=== PATIENT | male | born 1945 | race Caucasian/White ===

== ENCOUNTER → 2023-09-09 | Outpatient (CLI) | payer MEDICARE ==
[~2023-09-09] MED LIST: AMOX500T2 PO; DUTA0.5C37 PO; HYDR-4377 PO; L.AC1CAP6 PO; MULT-1367 PO; NEBI5TAB11 PO; OXYB5TAB20 PO; TAMS-1 PO; VITAMIN D3 PO; ZINC220T4 PO
[2023-09-09 13:20] LABS: BASOPHILS # (AUTO) 0.02 K/uL (0.00-0.20); BASOPHILS % (AUTO) 0.3 % (0.0-5.0); EOSINOPHILS # (AUTO) 0.05 K/uL (0.00-0.70); EOSINOPHILS % (AUTO) 0.8 % (0.0-8.0); HEMATOCRIT 47.1 % (42-54); IMMATURE GRANULOCYTE ABSOLUTE 0.04 K/uL (0-1); LYMPHOCYTES # (AUTO) 1.4 K/uL (1.0-4.8); LYMPHOCYTES % (AUTO) 20.7 % (21.0-51.0); MEAN CORPUSCULAR HEMOGLOBIN 30.4 pg (27.0-33.0); MEAN CORPUSCULAR HGB CONC 31.8 g/dL (32.0-36.0); MEAN CORPUSCULAR VOLUME 95.3 fL (79-99); MONOCYTES # (AUTO) 0.5 K/uL (0.1-1.0); MONOCYTES % (AUTO) 8.1 % (3.0-13.0); NEUTROPHILS # (AUTO) 4.6 K/uL (1.8-7.7); NEUTROPHILS % (AUTO) 69.5 % (40.0-77.0); PLATELET COUNT (AUTO) 151 K/uL (130-400); RED BLOOD CELL COUNT(AUTO) 4.94 MIL/uL (4.50-6.20); RED CELL DISTRIBUTION WIDTH 13.5 % (11.0-15.5); WHITE BLOOD COUNT (AUTO) 6.7 K/uL (4.8-10.8)
[2023-09-09 13:33] LABS: CREATININE 1.5 mg/dL (0.5-1.5); POTASSIUM 5.5 mmol/L (3.5-5.1)
[2023-09-09 13:38] LABS: ALBUMIN 3.5 g/dL (3.5-5.0); BILIRUBIN,TOTAL 0.4 mg/dL (0.2-1.0); PHOSPHORUS 3.5 mg/dL (2.5-4.9); URIC ACID 6.4 mg/dL (2.6-7.2)
== END | disposition home or self-care (01) ==
LOC: LAB 12:22
PROVIDERS: ATTEND Internal Medicine
DX: Z01.89 Encounter for other specified special examinations (principal); C67.8 Malignant neoplasm of overlapping sites of bladder; C77.8 Secondary and unspecified malignant neoplasm of lymph nodes of multiple regions; E83.52 Hypercalcemia
CPT/HCPCS: 36415; 80053; 83615; 83735; 84100; 84550; 85025

== ENCOUNTER 2024-09-16 13:10 | Inpatient (IN) | payer MEDICARE ==
[~2024-09-16] VITALS: Ht 172.7 cm; Wt 73.7 kg
[~2024-09-16 13:10] MED LIST changes: -NEBI5TAB11 PO; +NEBI5TAB12 PO
--- NOTE | 2024-09-16 13:30 | ERN ---
ED Note History of Present Illness Stated Complaint: BLOOD IN THE UROSTOMY Chief Complaint: Blood in Urine: Time Seen by MD: 13:12 Dictation: 78-year-old male brought from [facility] due to right side CVA pain, blood in urine. Patient has history of kidney cancer, chronic UTIs On my evaluation at bedside the patient stated that pain has resolved. Patient has history of urostomy Allergies: Coded Allergies: No Known Drug Allergies (Unverified Allergy, Unknown, 10/31/22) Home Meds Active Scripts Hydrocodone/Acetaminophen (Hydrocodone-Acetamin 5-300 mg) 1 Each Tablet, 1 EACH PO Q6HPRN PRN for MODERATE PAIN (4-6) for 5 Days, #20 TAB Prov:MARIA EUGENIA ARAIZA Jr., MD 11/09/22 Oxybutynin Chloride (Oxybutynin Chloride) 5 Mg Tablet, 2.5 MG PO TIDP PRN for bladder spasm for 10 Days, #30 TAB Prov:MARIA EUGENIA ARAIZA Jr., MD 11/09/22 Amoxicillin (Amoxicillin) 500 Mg Tablet, 1000 MG PO BID for E. FAECALIS UTI for 7 Days, #14 TAB Take 1 tablet orally twice daily Prov:MARIA EUGENIA ARAIZA Jr., MD 11/09/22 Reported Medications L.acidoph & Paracasei,B.lactis (Probiotic) 1 Each Capsule, 1 EACH PO DAILY, CAP 11/05/22 Tamsulosin HCl (Flomax) 0.4 Mg Cap.er.24h, 0.4 MG PO DAILYBKFST, CAPSULE. 11/05/22 [Vitamin D3] No Conflict Check, 2000 UNITS PO DAILY 11/05/22 Multivitamin (Multivitamin) 1 Each Tablet, 1 EACH PO DAILY, TAB 11/05/22 Zinc Sulfate (Zinc) 50 Mg Tablet, 50 MG PO DAILY, TAB 11/05/22 Nebivolol HCl (Nebivolol HCl) 5 Mg Tablet, 5 MG PO DAILY, TAB 11/05/22 Dutasteride (Dutasteride) 0.5 Mg Capsule, 0.5 MG PO DAILY, CAP 11/05/22 Review of System Dictation NEGATIVE EXCEPT PER HPI Constitutional: Negative for fever,chills, and weight loss Eyes: Negative for injury, pain,redness, and discharge ENT: Negative for injury,pain or swelling Cardiovascular: denies chest pain, palpitations, and edema Respiratory: Negative for shortness of breath, cough, and wheezing, Abdomen/GI: Negative for abdominal pain, nausea, vomiting, diarrhea, and constipation Back: Negative for injury and pain : Blood in urine. MS/Extremity: Negative for injury and deformity Skin: Negative for rash, and discoloration Neuro: Negative for headache, weakness, numbness, tingling, and seizure Psych: Negative for suicide ideation, homicidal ideation, and hallucinations Initial Vital Sign VS Vital Signs Date Time Temp Pulse Resp B/P (MAP) Pulse Ox O2 Delivery O2 Flow Rate FiO2 09/16/24 13:26 97.0 63 16 125/79 94 Room Air 0 09/16/24 15:00 21 Physical Exam Dictation General: awake, alert, NAD Head/Face: Normocephalic, atraumatic Eyes: PERRL, EOMI, vision at baseline ENT: oral cavity clear, TMs clear, no signs of infection Neck: Trachea midline, supple, no nuchal rigidity Cardiovascular: RRR, normal S1/S2, No MRGs, no JVD Respiratory: CTAB, no respiratory distress, No rales or wheezes Abdomen: Soft , no tender Skin: Warm, dry, normal turgor, no rash MS/Extremity: Pulses equal, no cyanosis, neurovascular intact, FROM Neuro: COAx4, GCS 15, strength 5/5, CN 2-12 intact, normal cerebellar exam, normal gait, Psych: Normal behavior, mood, and affect normal Results (Laboratory/Radiology) Laboratory/Radiology Laboratory Tests Test 09/16/24 14:07 09/16/24 14:30 White Blood Count 9.8 K/uL (4.8-10.8) Red Blood Count 5.09 MIL/uL (4.50-6.20) Hemoglobin 14.5 g/dL (14.0-18.0) Hematocrit 44.6 % (42-54) Mean Corpuscular Volume 87.6 fL (79-99) Mean Corpuscular Hemoglobin 28.5 pg (27.0-33.0) Mean Corpuscular Hemoglobin Concent 32.5 g/dL (32.0-36.0) Red Cell Distribution Width 13.2 % (11.0-15.5) Platelet Count 146 K/uL (130-400) Mean Platelet Volume 10.6 fL (7.5-10.5) H Immature Granulocyte % (Auto) 1.4 % (0-1) H Neutrophils (%) (Auto) 79.8 % (40.0-77.0) H Lymphocytes (%) (Auto) 9.8 % (21.0-51.0) L Monocytes (%) (Auto) 8.3 % (3.0-13.0) Eosinophils (%) (Auto) 0.3 % (0.0-8.0) Basophils (%) (Auto) 0.4 % (0.0-5.0) Neutrophils # (Auto) 7.8 K/uL (1.8-7.7) H Lymphocytes # (Auto) 1.0 K/uL (1.0-4.8) Monocytes # (Auto) 0.8 K/uL (0.1-1.0) Eosinophils # (Auto) 0.03 K/uL (0.00-0.70) Basophils # (Auto) 0.04 K/uL (0.00-0.20) Absolute Immature Granulocyte (auto 0.14 K/uL (0-1) Nucleated Red Blood Cells 0.0 % (0.0-0.19) Sodium Level 134 mmol/L (136-145) L Potassium Level 4.0 mmol/L (3.5-5.1) Chloride Level 99 mmol/L (101-111) L Carbon Dioxide Level 27 mmol/L (21-32) Blood Urea Nitrogen 37 mg/dL (7-18) H Creatinine 1.5 mg/dL (0.5-1.3) H Glomerular Filtration Rate Calc 48 mL/min (>90) Random Glucose 147 mg/dL (70-105) H Total Calcium 11.3 mg/dL (8.5-10.1) H Urine Color LIGHT-ORANGE (YELLOW) Urine Appearance TURBID (CLEAR) Urine pH 8.5 (5.0-8.0) H Urine Specific [place] 1.018 (1.001-1.031) Urine Protein 70 mg/dL (NEGATIVE) H Urine Glucose (UA) NEGATIVE mg/dL (NEGATIVE) Urine Ketones NEGATIVE mg/dL (NEGATIVE) Urine Occult Blood LARGE (NEGATIVE) H Urine Nitrate 1+ (NEGATIVE) H Urine Bilirubin NEGATIVE mg/dL (NEGATIVE) Urine Urobilinogen 0.2 mg/dL (0.2-1.0) Urine Leukocyte Esterase 500 Pete/uL (NEGATIVE) H Urine RBC TNTC /HPF (0-1) H Urine WBC 26-50 /HPF (0-1) H Urine WBC Clumps (Auto) FEW /HPF (0-1) Urine Other Crystals (Auto) 25 /HPF (None Seen) Urine Bacteria FEW /HPF (None Seen) Urine Yeast RARE /HPF (None Seen) ED Course ED Course Orders Procedure Category Date Status Time Cbc With Differential LAB 09/16/24 In Process 13:24 Basic Metabolic Panel LAB 09/16/24 Complete 13:24 Urinalysis Profile LAB 09/16/24 Complete 13:24 Ct Abdomen/Pelvis W/O CT 09/16/24 Resulted Contrast 13:26 Culture Urine ESTEVAN 09/16/24 In Process 15:19 Ceftriaxone 1g Vial PHA 09/16/24 Complete (Rocephine 1g Inj) 16:00 0.9%Nacl 1000ml (Ns PHA 09/16/24 In Process 1000ml) 16:00 Azithromycin 500mg+Ns PHA 09/16/24 In Process 250ml (Azithromyci 16:00 Chest 1vw RAD 09/16/24 Resulted 15:46 Ct Chest W/O Contrast CT 09/16/24 Taken 16:11 Admit Orders ADM 09/16/24 Transmitted 16:27 Cefepime Hcl 1 Gm PHA 09/16/24 Transmitted Vial (Maxipime 1 Gm Vi 16:30 Doxycycline Hyclate PHA 09/16/24 Transmitted (Doxycycline Hyclate 21:00 Acetaminophen 325 Tab PHA 09/16/24 Transmitted (Tylenol 325mg Tab 16:30 Ondansetron 4mg PHA 09/16/24 Transmitted Tablet (Zofran 4mg 16:30 Heart Healthy Diet DIET 09/16/24 Transmitted Dinner *Nursing CPOE 09/16/24 Transmitted Communication: 16:27 Scd Both Legs While CPOE 09/16/24 Transmitted In Bed 16:27 Pulmonology Consult CONPHYSVC 09/16/24 Transmitted 16:27 Cbc With Differential LAB 09/17/24 Verified 05:00 Basic Metabolic Panel LAB 09/17/24 Verified 05:00 Magnesium LAB 09/17/24 Verified 05:00 Current Medications Medications (Trade) Dose Ordered Sig/Chad Route PRN Reason Start Time Stop Time Status Last Admin Dose Admin Acetaminophen (TYLenol 325MG TAB) 650 mg Q4H PRN PO TEMPERATURE GREATER THAN 101.5 09/16/24 16:30 10/16/24 16:29 Azithromycin 250 ml @ 250 mls/hr Q24H IVPB 09/16/24 16:00 09/26/24 15:59 Cefepime HCl (MAXipime 1 GM vial) 1 gm Q8H IVPB 09/16/24 16:30 09/26/24 16:29 Ceftriaxone Sodium (ROCEphine 1G INJ) 1 gm ONCE ONCE IVPB 09/16/24 16:00 09/16/24 16:01 DC Doxycycline Hyclate (Doxycycline Hyclate) 100 mg BID PO 09/16/24 21:00 09/26/24 20:59 Ondansetron HCl (zoFRAN 4MG TABLET) 4 mg Q6H PRN PO NAUSEA/VOMITING 09/16/24 16:30 10/16/24 16:29 Sodium Chloride 1,000 ml @ 500 mls/hr Q2H IV 09/16/24 16:00 10/16/24 15:59 Vital Signs Date Time Temp Pulse Resp B/P (MAP) Pulse Ox O2 Delivery O2 Flow Rate FiO2 09/16/24 15:00 98.4 64 18 151/80 96 Room Air* 0 21 09/16/24 13:26 97.0 63 16 125/79 94 Room Air 0 Medical Decision Making MDM 78-year-old male with past medical history of kidney cancer, urostomy creation, chronic UTI. Patient is brought to the ED due to right CVA pain, brought in urine. UTI Kidney stone Cancer CT images of abdomen and pelvis CBC, BMP, UA UA was positive for leukocyte esterase, large amount of blood. Ceftriaxone 1 g given for UTI. CT abdomen images show a left large pleural effusion plus possible consolidation concerning for pneumonia. Patient received azithromycin plus ceftriaxone. Admitting physician request a CT of chest. It was ordered, hospitalist to follow up results. Case was discussed with the attending for further admission. Patient was said to be admitted in order to continue IV antibiotics as well food workup for left side pleural effusion. DX & DISP Disposition: Inpatient Decision to Admit Date: Sep 16, 2024 Decision to Admit Time: 15:00 Departure Impression: Primary Impression: Pneumonia Additional Impressions: Pleural effusion on left, UTI (urinary tract infection) Condition: Stable Referrals: MARIA INES DUNAWAY MD (PCP) LÁZARO OSWALD MD Sep 16, 2024 13:30
[2024-09-16 14:27] LABS: BASOPHILS # (AUTO) 0.04 K/uL (0.00-0.20); BASOPHILS % (AUTO) 0.4 % (0.0-5.0); EOSINOPHILS # (AUTO) 0.03 K/uL (0.00-0.70); EOSINOPHILS % (AUTO) 0.3 % (0.0-8.0); HEMATOCRIT 44.6 % (42-54); IMMATURE GRANULOCYTE ABSOLUTE 0.14 K/uL (0-1); LYMPHOCYTES % (AUTO) 9.8 % (21.0-51.0); MEAN CORPUSCULAR HEMOGLOBIN 28.5 pg (27.0-33.0); MEAN CORPUSCULAR HGB CONC 32.5 g/dL (32.0-36.0); MEAN CORPUSCULAR VOLUME 87.6 fL (79-99); MONOCYTES # (AUTO) 0.8 K/uL (0.1-1.0); MONOCYTES % (AUTO) 8.3 % (3.0-13.0); NEUTROPHILS # (AUTO) 7.8 K/uL (1.8-7.7); NEUTROPHILS % (AUTO) 79.8 % (40.0-77.0); PLATELET COUNT (AUTO) 146 K/uL (130-400); RED BLOOD CELL COUNT(AUTO) 5.09 MIL/uL (4.50-6.20); RED CELL DISTRIBUTION WIDTH 13.2 % (11.0-15.5); WHITE BLOOD COUNT (AUTO) 9.8 K/uL (4.8-10.8)
[2024-09-16 14:41] LABS: CREATININE 1.5 mg/dL (0.5-1.3)
[2024-09-16 15:03] LABS: APPEARANCE,URINE TURBID (CLEAR); BILIRUBIN,URINE NEGATIVE (NEGATIVE); COLOR,URINE LIGHT-ORANGE (YELLOW); GLUCOSE, URINE (UA) NEGATIVE (NEGATIVE); KETONES,URINE NEGATIVE (NEGATIVE); LEUKOCYTE ESTERASE ,URINE 500 Leu/uL (NEGATIVE); NITRATE,URINE 1+ (NEGATIVE); OCCULT BLOOD,URINE LARGE (NEGATIVE); PH,URINE 8.5 (5.0-8.0); PROTEIN,URINE 70 mg/dL (NEGATIVE); UROBILINOGEN,URINE 0.2 mg/dL (0.2-1.0)
[2024-09-16 15:19] LABS: ADD UA MICROSCOPIC YES
[2024-09-16 15:32] LABS: BACTERIA,URINE FEW /HPF (None Seen); MUCUS,URINE FEW LPF (None Seen); RBC,URINE TNTC /HPF (0-1); UNCLASSIFIED CRYSTAL 25 /HPF (None Seen); WBC CLUMP FEW /HPF (0-1); WBC,URINE 26-50 /HPF (0-1); YEAST,URINE BUDDING RARE /HPF (None Seen)
--- NOTE | 2024-09-16 15:34 | HMCIMG ---
Exam Type: CT ABDOMEN/PELVIS W/O CONTRAST Clinical Information: blood in the urine ,hx of kidney cancer Comparison: None CT Dose Index (CTDI): 10.20 mGy Dose Length Product (DLP): 530.00 total mGy-cm PROTOCOL: Routine noncontrast helical scanning of the abdomen and pelvis was performed at 5mm collimation. Findings: No evidence of nephro or ureterolithiasis is found. No hydronephrosis or ureteral dilatation is seen. Right lung base is clear. There is a moderate to large left pleural effusion with atelectasis and possible consolidation of the left lower lobe. Follow-up is advised. The stomach is unremarkable. It shows no wall thickening. No gross ulceration is seen. It is not overly distended. There are no surrounding inflammatory changes. No wall lesions are identified to suggest cancer. The spleen is unremarkable. It is not enlarged. The pancreas shows normal anatomy. It is not fatty replaced. It shows no lesions. The pancreatic duct is not dilated. The gallbladder is unremarkable. It shows no cholelithiasis. The gallbladder wall is normal in thickness. There is no pericholecystic fluid. The is no acute or chronic inflammation noted. The adrenal glands are unremarkable. There is no enlargement. No lesions are noted. The liver is unremarkable. It shows no focal masses. The appendix is unremarkable. It shows no evidence of inflammation. No appendicolith is seen. Patent ostomy is noted right lower quadrant. Large and small bowel appear otherwise unremarkable. The urinary bladder is unremarkable. There is no wall thickening to suggest tumor or inflammation. There are no intraluminal calculi. There are no diverticula. There is no evidence of chronic bladder outlet obstruction. There is no evidence of urinary bladder distention to suggest urinary retention. The other pelvic structures are unremarkable. The bony and vascular structures are unremarkable for the patient's age. IMPRESSION: Right lung base is clear. There is a moderate to large left pleural effusion with atelectasis and possible consolidation of the left lower lobe. Follow-up is advised. This study was performed using dose reduction techniques to include automated exposure control and/or adjustment of the mA and/or kV according to patient size.
[2024-09-16] MEDS ORDERED: cefTRIAXone 1G VIAL IVPB ONE (16:00)
[2024-09-16] MEDS ORDERED: AZITHROMYCIN 500MG+NS 250ML 250 ML IVPB SCH (16:00)
[2024-09-16] MEDS ORDERED: acetaMINOPHEN 325 MG TAB PO PRN (16:30)
[2024-09-16] MEDS ORDERED: ondanSETRON 4MG TABLET PO PRN (16:30)
--- NOTE | 2024-09-16 16:38 | HMCIMG ---
Exam Type: CHEST 1VW Clinical Information: Pneumonia/pleural efussion Comparison: None Findings and impression: Moderate left pleural effusion with partial left lower lobe atelectasis. Clear right lung. Mild cardiomegaly. Right Mediport line in place. No pneumothorax.
--- NOTE | 2024-09-16 16:44 | HMCIMG ---
CT NONCONTRAST CHEST Comparison Study: none History: large pleural effusion Technique: Helical CT of the chest without IV contrast at 5 mm collimation. Coronal and sagittal reformations also done. CT Dose Index (CTDI): 2.38 mGy Dose Length Product (DLP): 94.8 total mGy-cm Findings: The airway is intact. The trachea and major bronchi are unremarkable. The chest exam shows no pulmonary nodules or masses. Right lung base is clear. There is a moderate to large left pleural effusion with atelectasis and possible consolidation of the left lower lobe. Follow-up is advised. There is no pneumothorax. There is no evidence of pneumomediastinum. The nonenhanced exam of the sophy and mediastinum is unremarkable. No evidence of hilar enlargement is seen. The aorta shows no aneurysmal dilatation or significant atheromatous calcification. No significant brachiocephalic vascular abnormalities are seen. The heart is unremarkable. It is not enlarged. No significant coronary arterial calcifications are seen. There is no pericardial effusion. The rib cage appears unremarkable. The soft tissues of the chest wall are unremarkable. There is a blastic focus of T11 which could represent an early metastatic deposit. IMPRESSION: Right lung base is clear. There is a moderate to large left pleural effusion with atelectasis and possible consolidation of the left lower lobe. Follow-up is advised. There is a blastic focus of T11 which could represent an early metastatic deposit. This study was performed using dose reduction techniques to include automated exposure control and/or adjustment of the mA and/or kV according to patient size.
[2024-09-16] MEDS: 0.9%NACL 1000ML 1,000 ML IV SCH (16:50)
[2024-09-16] MEDS: ceFEPime HCL 1 GM VIAL IVPB SCH (16:50)
[2024-09-16] MEDS: morPHINE 2 MG SYG IVP PRN (17:50)
[2024-09-16] MEDS: DOXYCYCLINE HYCLATE 100 MG TABLET PO SCH (21:00)
[2024-09-16 21:43] VITALS: BP 185/93; PULSE 85; RESP 20; TEMP 98.3
[2024-09-17] VITALS (8 sets, daily range): BP systolic 142–185; BP diastolic 80–98; PULSE 68–96; RESP 18–24; TEMP 97.9–98.6; O2SAT 94–96
[2024-09-17] MEDS ORDERED: GABA-529 PO (02:43)
[2024-09-17] MEDS ORDERED: LACT-441 PO (02:43)
[2024-09-17] MEDS ORDERED: MELA3CAP2 PO (02:43)
[2024-09-17] MEDS ORDERED: POLY17PO52 PO (02:43)
[2024-09-17] MEDS ORDERED: PROP10TA10 PO (02:43)
[2024-09-17] MEDS ORDERED: CARB15DR OP (02:43)
[2024-09-17] MEDS ORDERED: PANT40TA54 PO (02:43)
[2024-09-17] MEDS ORDERED: IPRA3AMP24 IH (02:43)
[2024-09-17] MEDS ORDERED: GUAI100L96 PO (02:43)
[2024-09-17] MEDS ORDERED: CLON0.1T PO (02:43)
[2024-09-17] MEDS ORDERED: DOCU100C33 PO (02:43)
--- NOTE | 2024-09-17 02:54 | HP ---
DATE OF SERVICE: 09/16/2024 PRESENTING COMPLAINT: Hematuria and flank pain. HISTORY OF PRESENT ILLNESS: This is a 78-year-old male with history of BPH, hypertension, who presented to the hospital with abdominal pain, hematuria. Pain localized to the flank. No fever, no chills. Upon arrival in the Emergency Room, the patient found with clear urine in the urostomy bag. The patient had CT of the abdomen was one, which shows large pleural effusion and pneumonia. The [facility] was [facility]. No documented fever. He denies rashes or itchiness. PAST MEDICAL HISTORY: * BPH. * Spinal stenosis. * Hypertension. * Bladder tumor. PAST SURGICAL HISTORY: * Laminectomy. * Urostomy placement. * Trans-resection of bladder tumor. ALLERGIES: No known drug allergy. MEDICATIONS: Reviewed. SOCIAL HISTORY: No alcohol, tobacco or illicit drug use. The [facility] is residing at the [facility]. FAMILY HISTORY: Noncontributory. REVIEW OF SYSTEMS: CONSTITUTIONAL: No fever, no chills, no weight loss or night sweats. EYES: No eye pain, no photophobia or diplopia. HENT: No sore throat, no rhinorrhea or earache. NECK: No neck pain or neck swelling. RESPIRATORY: No cough, no hemoptysis or pleuritic pain. CARDIOVASCULAR: No chest pain, no palpitation or orthopnea. GASTROINTESTINAL: Denied nausea, vomiting, or abdominal pain. GENITOURINARY: No dysuria, urgency, or urinary frequency. CENTRAL NERVOUS SYSTEM: No headache, dizziness, or slurred speech. PHYSICAL EXAMINATION: GENERAL: Elderly male, awake. VITAL SIGNS: Temperature 98.4, pulse 64, respiratory rate 18, BP 151/80. EYES: No icterus. Pupils equal and reactive. HENT: No oral lesions seen. Moist oral mucosa. NECK: Supple. No JVD or thyromegaly. LUNGS: Good air entry. No rales, no rhonchi. CARDIOVASCULAR: S1, S2 regular. No murmur heard. ABDOMEN: Soft. Bowel sound is present. Urostomy on the right side functioning well. CENTRAL NERVOUS SYSTEM: Awake, alert, oriented x 3. No focal deficits. SKIN: No rashes, no itchiness. LYMPHATIC: No peripheral lymphadenopathy. BACK: No deformity, no pressure ulcer. HEMATOLOGIC: No bleeding or petechial lesions seen. MUSCULOSKELETAL: No joint swelling, erythema, or tenderness. VASCULAR: No ischemia or gangrene of extremities. LABORATORY DATA: Sodium 134, potassium 4.0, BUN 37, creatinine 1.5. WBC 9.0, hemoglobin 14.5, platelet 146. Urinalysis: WBC 26-50, leukocyte esterase 500, nitrite positive. ASSESSMENT: A 78-year-old male presenting with flank pain, hematuria. CURRENT PROBLEMS: Include: * Pneumonia. * Urinary tract infection. * Acute renal failure. * Hypertension. * Obesity. * Hematuria . PLAN: * Admit the patient to medical floor. * Start the patient on cefepime. * Start the patient on doxycycline. * Follow up cultures. * Pulmonary evaluation. * Obtain CT chest without contrast. * Monitor electrolytes. * Continue DVT prophylaxis. * The patient will be followed up closely. TID: [id number] RECEIPT: [id number]
[2024-09-17 05:52] LABS: BASOPHILS # (AUTO) 0.04 K/uL (0.00-0.20); BASOPHILS % (AUTO) 0.4 % (0.0-5.0); EOSINOPHILS # (AUTO) 0.01 K/uL (0.00-0.70); EOSINOPHILS % (AUTO) 0.1 % (0.0-8.0); HEMATOCRIT 42.3 % (42-54); IMMATURE GRANULOCYTE ABSOLUTE 0.16 K/uL (0-1); LYMPHOCYTES # (AUTO) 0.9 K/uL (1.0-4.8); LYMPHOCYTES % (AUTO) 8.1 % (21.0-51.0); MEAN CORPUSCULAR HEMOGLOBIN 28.2 pg (27.0-33.0); MEAN CORPUSCULAR HGB CONC 32.2 g/dL (32.0-36.0); MEAN CORPUSCULAR VOLUME 87.6 fL (79-99); MONOCYTES % (AUTO) 8.9 % (3.0-13.0); NEUTROPHILS # (AUTO) 8.9 K/uL (1.8-7.7); PLATELET COUNT (AUTO) 140 K/uL (130-400); RED BLOOD CELL COUNT(AUTO) 4.83 MIL/uL (4.50-6.20); RED CELL DISTRIBUTION WIDTH 13.1 % (11.0-15.5)
[2024-09-17 06:04] LABS: CREATININE 1.1 mg/dL (0.5-1.3); MAGNESIUM 1.7 mg/dL (1.80-2.40); POTASSIUM 3.9 mmol/L (3.5-5.1)
[2024-09-17] MEDS ORDERED: NON-FORMULARY MEDICATION 1 EACH (Carboxymethylcellulose Sodium (Refresh Tears) 1 DROP) OP SCH (15:00)
[2024-09-17] MEDS ORDERED: cloNIDine HCL 0.1 MG TABLET PO PRN (15:00)
[2024-09-17] MEDS: guaiFENesin SUGAR-FREE 100 MG/5 ML UDCUP PO SCH (16:21)
[2024-09-17] MEDS: traMADol HCL 50 MG TABLET PO PRN (16:27)
--- NOTE | 2024-09-17 17:04 | PN ---
INFECTIOUS DISEASE PROGRESS NOTE Date of Service: Sep 17, 2024 SUBJECTIVE: This 78 year old male patient is being seen today at bedside. he has no fever or chills. No nausea or vomiting. Patient is awake, alert and oriented x2. He continues with antibiotics tolerating well. Urostomy is draining well. He's eating lunch. Denies chest pain or shortness of breath. Denies abdominal discomfort. WBC 11. No acute events reported by nuse at this visit. PHYSICAL EXAM EYES: Anicteric. Pupils equal and reactive. HENT: No oral thrush seen, moist Oral mucosa NECK: Supple, no JVD or thyromegaly. LUNGS: Good air entry. No rales, no rhonchi. CARDIOVASCULAR: S1, S2 regular. No murmur heard. ABDOMEN: Soft, non tender, bowel sounds present, no organomegaly CENTRAL NERVOUS SYSTEM: Awake, alert, oriented x 3. No focal deficits. SKIN: No rashes, no swelling. LYMPHATICS: No peripheral lymphadenopathy MUSCULOSKELETAL: No joint swelling, erythema or tenderness. EXTREMITIES: No cyanosis or clubbing BACK: No deformity, no pressure ulcer. GENITOURINARY: urostomy, yellow urine Vital Sign (Last 12 Hours) 09/17/24 09/17/24 09/17/24 09/17/24 08:00 08:00 09:00 11:49 Temp 97.9 98.1 Pulse 68 68 77 Resp 18 18 B/P (MAP) 185/93 148/87 142/80 Pulse Ox 94 94 96 O2 Delivery Room Air Room Air* Room Air O2 Flow Rate 0 FiO2 21 LABS: Laboratory: Test 09/17/24 14:24 09/17/24 10:49 09/17/24 05:47 09/16/24 14:30 Range/Units Lactic Acid Level 2.1 0.8-2.5 mmol/L B-Type Natriuretic Peptide 89 0-100 pg/mL Procalcitonin 0.13 0.05-0.5 ng/mL White Blood Count 11.0 H 4.8-10.8 K/uL Red Blood Count 4.83 4.50-6.20 MIL/uL Hemoglobin 13.6 L 14.0-18.0 g/dL Hematocrit 42.3 42-54 % Mean Corpuscular Volume 87.6 79-99 fL Mean Corpuscular Hemoglobin 28.2 27.0-33.0 pg Mean Corpuscular Hemoglobin Concent 32.2 32.0-36.0 g/dL Red Cell Distribution Width 13.1 11.0-15.5 % Platelet Count 140 130-400 K/uL Mean Platelet Volume 10.1 7.5-10.5 fL Immature Granulocyte % (Auto) 1.5 H 0-1 % Neutrophils (%) (Auto) 81.0 H 40.0-77.0 % Lymphocytes (%) (Auto) 8.1 L 21.0-51.0 % Monocytes (%) (Auto) 8.9 3.0-13.0 % Eosinophils (%) (Auto) 0.1 0.0-8.0 % Basophils (%) (Auto) 0.4 0.0-5.0 % Neutrophils # (Auto) 8.9 H 1.8-7.7 K/uL Lymphocytes # (Auto) 0.9 L 1.0-4.8 K/uL Monocytes # (Auto) 1.0 0.1-1.0 K/uL Eosinophils # (Auto) 0.01 0.00-0.70 K/uL Basophils # (Auto) 0.04 0.00-0.20 K/uL Absolute Immature Granulocyte (auto 0.16 0-1 K/uL Nucleated Red Blood Cells 0.0 0.0-0.19 % Sodium Level 138 136-145 mmol/L Potassium Level 3.9 3.5-5.1 mmol/L Chloride Level 105 101-111 mmol/L Carbon Dioxide Level 26 21-32 mmol/L Blood Urea Nitrogen 33 H 7-18 mg/dL Creatinine 1.1 0.5-1.3 mg/dL Glomerular Filtration Rate Calc 69 >90 mL/min Random Glucose 111 H 70-105 mg/dL Total Calcium 10.8 H 8.5-10.1 mg/dL Magnesium Level 1.70 L 1.80-2.40 mg/dL Urine Color LIGHT-ORANGE YELLOW Urine Appearance TURBID CLEAR Urine pH 8.5 H 5.0-8.0 Urine Specific Christine 1.018 1.001-1.031 Urine Protein 70 H NEGATIVE mg/dL Urine Glucose (UA) NEGATIVE NEGATIVE mg/dL Urine Ketones NEGATIVE NEGATIVE mg/dL Urine Occult Blood LARGE H NEGATIVE Urine Nitrate 1+ H NEGATIVE Urine Bilirubin NEGATIVE NEGATIVE mg/dL Urine Urobilinogen 0.2 0.2-1.0 mg/dL Urine Leukocyte Esterase 500 H NEGATIVE Pete/uL Urine RBC TNTC H 0-1 /HPF Urine WBC 26-50 H 0-1 /HPF Urine WBC Clumps (Auto) FEW 0-1 /HPF Urine Other Crystals (Auto) 25 None Seen /HPF Urine Bacteria FEW None Seen /HPF Urine Yeast RARE None Seen /HPF Test 09/16/24 14:07 Range/Units White Cell Morphology Comment See comments DIAGNOSTICS / RADIOLOGY: CT NONCONTRAST CHEST Comparison Study: none History: large pleural effusion Technique: Helical CT of the chest without IV contrast at 5 mm collimation. Coronal and sagittal reformations also done. CT Dose Index (CTDI): 2.38 mGy Dose Length Product (DLP): 94.8 total mGy-cm Findings: The airway is intact. The trachea and major bronchi are unremarkable. The chest exam shows no pulmonary nodules or masses. Right lung base is clear. There is a moderate to large left pleural effusion with atelectasis and possible consolidation of the left lower lobe. Follow-up is advised. There is no pneumothorax. There is no evidence of pneumomediastinum. The nonenhanced exam of the sophy and mediastinum is unremarkable. No evidence of hilar enlargement is seen. The aorta shows no aneurysmal dilatation or significant atheromatous calcification. No significant brachiocephalic vascular abnormalities are seen. The heart is unremarkable. It is not enlarged. No significant coronary arterial calcifications are seen. There is no pericardial effusion. The rib cage appears unremarkable. The soft tissues of the chest wall are unremarkable. There is a blastic focus of T11 which could represent an early metastatic deposit. IMPRESSION: Right lung base is clear. There is a moderate to large left pleural effusion with atelectasis and possible consolidation of the left lower lobe. Follow-up is advised. There is a blastic focus of T11 which could represent an early metastatic deposit. Exam Type: CHEST 1VW Clinical Information: Pneumonia/pleural efussion Comparison: None Findings and impression: Moderate left pleural effusion with partial left lower lobe atelectasis. Clear right lung. Mild cardiomegaly. Right Mediport line in place. No pneumothorax. ASSESSMENT: This 78 year old male patient with current problems which include: * Pneumonia. * Urinary tract infection. * Acute renal failure. * Hypertension. * Obesity. * Hematuria, improved * Left pleural effusion PLAN: * Admit the patient to medical floor. * Start the patient on cefepime. * Start the patient on doxycycline. * Follow up cultures. * Monitor electrolytes. * Continue DVT prophylaxis. * Continue fall precaution * The patient will be followed up closely. This case has been discussed with my supervising physician Dr. burgos. DIAZ GUAJARDO Sep 17, 2024 17:04
--- NOTE | 2024-09-17 17:25 | CONS ---
[facility] CONSULTATION NOTE Date Patient Seen: Sep 17, 2024 Time of Visit: 17:25 Supervising Physician: [Dr. No] Reason for Consultation: [Pneumonia, pleural effusion] Primary Care Physician: [Dr. Macias] Outpatient Specialists: [ ] Inpatient Consults: [[facility]] PROBLEM LIST: Pneumonia Urinary tract infection Acute renal failure Hypertension Obesity Hematuria, improved Left pleural effusion Plan: Continue broad spectrum antibiotics Follow cultures, adjust antibiotics as indicated Order BNP, lacitc acid, ABG and procalcitonin level Will start diuretics for now and monitor patient response If respiratory status not improved or worsens, will consider thoracentesis HPI: [This is a 78-year-old male with a history of hypertension, BPH, renal cell cancer and chronic UTIs who presents to ED from [facility] for evaluation of right sided CVA pain associated with hematuria. His labs on admission were remarkable for DIAMOND with creatinine 1.5 and hyponatremia with sodium of 134. His UA showed leukocyte esterase of 500, pending urine culture. His lactic acid is 2.7, has been initiated on broad-spectrum antibiotics per primary. His CT of t he abdomen did show large pleural effusion as well as pneumonia, CT chest was ordered which confirmed a moderate to large left-sided pleural effusion with enhancement to T11 which could indicate possible metastasis per report. [facility] is consulted for pneumoniae and pleural effusion. Patient was evaluated at bedside, saturating well on room air. He did not have any flu-like symptoms of cough or congestion on my exam. When questioned about his symptoms and history of renal cancer, patient was unable to provide details of his medical condition. He could not recall the details of his cancer including diagnosis, staging, or the name of his oncologist.] PAST MEDICAL HX: see above PAST SURGICAL HX: noncontributory SOCIAL HISTORY: No tobacco, ETOH, or illicit drug use Coded Allergies: No Known Drug Allergies (Unverified Allergy, Unknown, 10/31/22) REVIEW OF SYSTEMS: 12 point ROS reviewed with patient. Pertinent positives mentioned above. Otherwise negative. PHYSICAL EXAM: GENERAL: alert, weak, awake oriented x 3 HEENT: EOMI, Sclera non icteric, moist mucosa NECK: Supple, no JVD, trachea midline LUNGS: Clear breath sounds bilaterally. No wheezes HEART: Regular rate and rhythm. Normal S1 and S2, without murmurs ABD: Abdomen soft, nontender. Bowel sounds present EXT: No clubbing cyanosis or edema NEURO: Alert and oriented to person, follows commands Vital Signs (last 8hr) Date Time Temp Pulse Resp B/P (MAP) Pulse Ox O2 Delivery O2 Flow Rate FiO2 09/17/24 16:00 98.6 90 18 160/98 96 Room Air 09/17/24 11:49 98.1 77 18 142/80 96 Room Air LABS: Hematology Labs: Test 09/17/24 05:47 09/16/24 14:07 Range/Units White Blood Count 11.0 H 4.8-10.8 K/uL Red Blood Count 4.83 4.50-6.20 MIL/uL Hemoglobin 13.6 L 14.0-18.0 g/dL Hematocrit 42.3 42-54 % Mean Corpuscular Volume 87.6 79-99 fL Mean Corpuscular Hemoglobin 28.2 27.0-33.0 pg Mean Corpuscular Hemoglobin Concent 32.2 32.0-36.0 g/dL Red Cell Distribution Width 13.1 11.0-15.5 % Platelet Count 140 130-400 K/uL Mean Platelet Volume 10.1 7.5-10.5 fL Immature Granulocyte % (Auto) 1.5 H 0-1 % Neutrophils (%) (Auto) 81.0 H 40.0-77.0 % Lymphocytes (%) (Auto) 8.1 L 21.0-51.0 % Monocytes (%) (Auto) 8.9 3.0-13.0 % Eosinophils (%) (Auto) 0.1 0.0-8.0 % Basophils (%) (Auto) 0.4 0.0-5.0 % Neutrophils # (Auto) 8.9 H 1.8-7.7 K/uL Lymphocytes # (Auto) 0.9 L 1.0-4.8 K/uL Monocytes # (Auto) 1.0 0.1-1.0 K/uL Eosinophils # (Auto) 0.01 0.00-0.70 K/uL Basophils # (Auto) 0.04 0.00-0.20 K/uL Absolute Immature Granulocyte (auto 0.16 0-1 K/uL Nucleated Red Blood Cells 0.0 0.0-0.19 % White Cell Morphology Comment See comments Chemistry Labs: Test 09/17/24 14:24 09/17/24 10:49 09/17/24 05:47 Range/Units Lactic Acid Level 2.1 0.8-2.5 mmol/L B-Type Natriuretic Peptide 89 0-100 pg/mL Procalcitonin 0.13 0.05-0.5 ng/mL Sodium Level 138 136-145 mmol/L Potassium Level 3.9 3.5-5.1 mmol/L Chloride Level 105 101-111 mmol/L Carbon Dioxide Level 26 21-32 mmol/L Blood Urea Nitrogen 33 H 7-18 mg/dL Creatinine 1.1 0.5-1.3 mg/dL Glomerular Filtration Rate Calc 69 >90 mL/min Random Glucose 111 H 70-105 mg/dL Total Calcium 10.8 H 8.5-10.1 mg/dL Magnesium Level 1.70 L 1.80-2.40 mg/dL DIAGNOSTICS / RADIOLOGY RESULTS: Findings: The airway is intact. The trachea and major bronchi are unremarkable. The chest exam shows no pulmonary nodules or masses. Right lung base is clear. There is a moderate to large left pleural effusion with atelectasis and possible consolidation of the left lower lobe. Follow-up is advised. There is no pneumothorax. There is no evidence of pneumomediastinum. The nonenhanced exam of the sophy and mediastinum is unremarkable. No evidence of hilar enlargement is seen. The aorta shows no aneurysmal dilatation or significant atheromatous calcification. No significant brachiocephalic vascular abnormalities are seen. The heart is unremarkable. It is not enlarged. No significant coronary arterial calcifications are seen. There is no pericardial effusion. The rib cage appears unremarkable. The soft tissues of the chest wall are unremarkable. There is a blastic focus of T11 which could represent an early metastatic deposit. IMPRESSION: Right lung base is clear. There is a moderate to large left pleural effusion with atelectasis and possible consolidation of the left lower lobe. Follow-up is advised. There is a blastic focus of T11 which could represent an early metastatic deposit. PLAN NEURO: Minimize central acting medications as possible. Maintain fall precautions, adequate lighting during the day PULMONARY: Supplemental 02 as needed. Maintain aspiration precautions at all times CARDIOVASCULAR: Follow hemodynamics. Vital signs per facility protocol GI & NUTRITION: Continue with nutritional support. Continue stool softeners and laxatives as needed. KIDNEYS & ELECTROLYTES: Strict monitoring of intake, output and overall fluid balance. Avoid nephrotoxic medications to the extent possible. Medications to be dosed according to renal function. Monitor electrolytes and replace as needed ENDOCRINE: Maintain blood glucose between 100-180 at all times. Hypoglycemia protocol in place INFECTIOUS DISEASE: Trend temperature, WBC and procalcitonin level Follow cultures, deescalate antibiotics as soon as possible. Panculture if new onset fever ONCOLOGY/HEMATOLOGY/COAGULATION: Monitor for s/s of bleeding Monitor hemoglobin, coagulation studies as needed SKIN: Pressure ulcer prevention per facility protocol Specialty mattress ORTHO/REHAB: Continue PT/OT Prophylaxis: Continue GI and DVT prophylaxis Code Status: Full Resuscitation Disposition: TBD Other: Total patient care time exceeds 35 minutes excluding all procedures. KRZYSZTOF JOHNSON Sep 17, 2024 17:25
--- NOTE | 2024-09-17 17:39 | NUR ---
DCP/INITIAL ASSESSMENT SW spoke with patient's son, Tomy Cox. He informed SW that patient had been at [facility] X 3 weeks but family no longer wants to return there. He stated that family was not happy with the care or therapy received at [facility]. Son states patient was active until he suffered a fall in Mid July 2024 where he hurt his legs and has decompensated since then. Patient is no longer walking and is dependent on others for care. Patient has no local PCP. Pharmacy is [facility] in [place]. Patient's spouse, Liana, is presently out of town assisting their daughter. Son, Tomy is here from [place] and is helping with making decisions regarding patient's care. Son is requesting recommendation for SNF that will care for patient. He will speak to MD regarding SNF placement. Son also stated that he is also looking into making arrangements to have patient flown back to where he lives in [place] for continued care there. Son states he is aware that he will need to pay for transport of patient to [place]. Chikis CANNON, made aware. Addendum: 09/17/24 at 1746 by RIYA SMITH SS Amended: Links added.
[2024-09-17 18:11] LABS: INR 1.17 (0.85-1.15); PROTHROMBIN TIME 12.9 SEC (9.6-11.6)
[2024-09-17 18:37] LABS: CREATININE 1.2 mg/dL (0.5-1.3); POTASSIUM 4.3 mmol/L (3.5-5.1)
[2024-09-17] MEDS: doCUSate SODIUM 100 MG CAP PO SCH (20:10)
[2024-09-17] MEDS: GABApentin 100 MG CAPSULE PO SCH (20:10)
[2024-09-17] MEDS: MELATONIN PO SCH (20:12)
[2024-09-18] VITALS (9 sets, daily range): BP systolic 125–160; BP diastolic 67–97; PULSE 67–101; RESP 17–24; TEMP 97.7–98.4; O2SAT 94–95
[2024-09-18] MEDS: ceFEPime HCL 1 GM VIAL IVPB SCH (00:13)
[2024-09-18] MEDS: LACTULOSE 20 GM/30 ML UDCUP PO SCH (08:53)
[2024-09-18] MEDS: polyETHYLene GLYCol 3350 17 GM POWD.PACK PO SCH (08:54)
[2024-09-18] MEDS: tamSULOsin HCL 0.4 MG CAP.ER.24H PO SCH (08:55)
[2024-09-18] MEDS: furoSEMIDE 20 MG TABLET PO SCH (08:55)
[2024-09-18] MEDS: PROPRANOLOL HCL 10 MG TAB PO SCH (08:55)
[2024-09-18] MEDS: MULTIVITAMIN TABLET PO SCH (08:56)
[2024-09-18] MEDS: PANTOPrazole 40 MG TAB DR PO SCH (08:56)
[2024-09-18] MEDS: (Dutasteride 0.5 MG) PO SCH (09:00)
[2024-09-18] MEDS: (Zinc Sulfate (Zinc) 50 MG) PO SCH (09:00)
[2024-09-18] MEDS: (L.acidoph & Paracasei,B.lactis (Probiotic) 1 EACH) PO SCH (09:00)
[2024-09-18] MEDS ORDERED: NEBIVOLOL HCL 5 MG PO SCH (09:00)
[2024-09-18] MEDS: VITAMIN D3 2000 UNIT PO SCH (09:00)
--- NOTE | 2024-09-18 16:58 | CONS ---
CONSULT NOTE: This is a 78-year-old male with history of BPH, hypertension, who presented to the hospital with abdominal pain and hematuria. Pain localized to the flank. No fever, no chills. Upon arrival in the Emergency Room, the patient found with clear urine in the urostomy bag. The patient had CT of the abdomen was one, which shows large pleural effusion and pneumonia. The patient was transferred from [facility]. No documented fever. He denies rashes or itchiness. Patient CT scan showed T11 blastic lesion suspicious for metastatic disease to the bone. PAST MEDICAL HISTORY: * BPH. * Spinal stenosis. * Hypertension. * Bladder tumor. PAST SURGICAL HISTORY: * Laminectomy. * Urostomy placement. * Trans-resection of bladder tumor. ALLERGIES: No known drug allergy. MEDICATIONS: Reviewed. SOCIAL HISTORY: No alcohol, tobacco or illicit drug use. The patient is residing at the intermediate. FAMILY HISTORY: Noncontributory. REVIEW OF SYSTEMS: CONSTITUTIONAL: No fever, no chills, no weight loss or night sweats. EYES: No eye pain, no photophobia or diplopia. HENT: No sore throat, no rhinorrhea or earache. NECK: No neck pain or neck swelling. RESPIRATORY: No cough, no hemoptysis or pleuritic pain. CARDIOVASCULAR: No chest pain, no palpitation or orthopnea. GASTROINTESTINAL: Denied nausea, vomiting, or abdominal pain. GENITOURINARY: No dysuria, urgency, or urinary frequency. CENTRAL NERVOUS SYSTEM: No headache, dizziness, or slurred speech. PHYSICAL EXAMINATION: GENERAL: Elderly male, awake. VITAL SIGNS: Temperature 98.4, pulse 64, respiratory rate 18, BP 151/80. EYES: No icterus. Pupils equal and reactive. HENT: No oral lesions seen. Moist oral mucosa. NECK: Supple. No JVD or thyromegaly. LUNGS: Good air entry. No rales, no rhonchi. CARDIOVASCULAR: S1, S2 regular. No murmur heard. ABDOMEN: Soft. Bowel sound is present. Urostomy on the right side functioning well. CENTRAL NERVOUS SYSTEM: Awake, alert, oriented x 3. No focal deficits. SKIN: No rashes, no itchiness. LYMPHATIC: No peripheral lymphadenopathy. BACK: No deformity, no pressure ulcer. HEMATOLOGIC: No bleeding or petechial lesions seen. MUSCULOSKELETAL: No joint swelling, erythema, or tenderness. VASCULAR: No ischemia or gangrene of extremities. LABORATORY DATA: Sodium 134, potassium 4.0, BUN 37, creatinine 1.5. WBC 9.0, hemoglobin 14.5, platelet 146. Urinalysis: WBC 26-50, leukocyte esterase 500, nitrite positive. ASSESSMENT: 1. T12 blastic lesions suspicious for malignancy 2. Left pleural effusion 4. Enlargement of the prostate 4. Mild anemia 5. Spinal stenosis 6. Hypertension 7. Severe pain 8. Pneumonia 9. Acute on chronic renal failure 10. Hematuria Plan 1. I have long discussion with the patient regarding the plan of care. I answer all question and concern and I spent more than 35 minutes. Patient have hard of hearing but I explained to him that he have a bone lesion. We need to do bone scan for this patient as soon as possible. 2. It seems the patient is anxious. Will give him Ativan 0.5 mg IV before procedure done. 3. Patient with severe pain with the patient on morphine. This patient could benefit maybe more from Toradol 15 mg every 6 hours as needed 4. We will ask for PSA to be done for this patient. 5. We need more information about this patient especially possibility of history of bladder tumor. We need to know where this patient is seen and if there is any pathology. LAB RESULTS 09/17/24 18:00: Sodium Level 138, Potassium Level 4.3, Chloride Level 105, Carbon Dioxide Level 28, Blood Urea Nitrogen 33H, Creatinine 1.2, Glomerular Filtration Rate Calc 62, Random Glucose 123H, Total Calcium 10.8H 09/17/24 17:43: Prothrombin Time 12.9H, Prothromb Time International Ratio 1.17H 09/17/24 14:24: Lactic Acid Level 2.1 09/17/24 10:49: B-Type Natriuretic Peptide 89, Procalcitonin 0.13 09/17/24 05:47: White Blood Count 11.0H, Red Blood Count 4.83, Hemoglobin 13.6L, Hematocrit 42.3, Mean Corpuscular Volume 87.6, Mean Corpuscular Hemoglobin 28.2, Mean Corpuscular Hemoglobin Concent 32.2, Red Cell Distribution Width 13.1, Platelet Count 140, Mean Platelet Volume 10.1, Immature Granulocyte % (Auto) 1.5H, Neutrophils (%) (Auto) 81.0H, Lymphocytes (%) (Auto) 8.1L, Monocytes (%) (Auto) 8.9, Eosinophils (%) (Auto) 0.1, Basophils (%) (Auto) 0.4, Neutrophils # (Auto) 8.9H, Lymphocytes # (Auto) 0.9L, Monocytes # (Auto) 1.0, Eosinophils # (Auto) 0.01, Basophils # (Auto) 0.04, Absolute Immature Granulocyte (auto 0.16, Nucleated Red Blood Cells 0.0, Magnesium Level 1.70L Laboratory Tests Test 09/17/24 17:43 09/17/24 18:00 Prothrombin Time 12.9 SEC (9.6-11.6) H Prothromb Time International Ratio 1.17 (0.85-1.15) H Sodium Level 138 mmol/L (136-145) Potassium Level 4.3 mmol/L (3.5-5.1) Chloride Level 105 mmol/L (101-111) Carbon Dioxide Level 28 mmol/L (21-32) Blood Urea Nitrogen 33 mg/dL (7-18) H Creatinine 1.2 mg/dL (0.5-1.3) Glomerular Filtration Rate Calc 62 mL/min (>90) Random Glucose 123 mg/dL (70-105) H Total Calcium 10.8 mg/dL (8.5-10.1) H BIANKA CAMPBELL MD Sep 18, 2024 16:58
--- NOTE | 2024-09-18 17:19 | NUR ---
[facility] MED PATIENT WAS BROUGHT DOWN FOR BONE SCAN 3 HOURS AFTER INJECTING ISOTOPE, UPON ATTEMPTING TO TRANSFER THE PATIENT DECLINED THE EXAM PATIENT WAS TAKEN BACK TO THE ROOM NURSE GIORGIO WAS MADE AWARE.
--- NOTE | 2024-09-18 18:52 | PN ---
INFECTIOUS DISEASE PROGRESS NOTE Date of Service: Sep 18, 2024 SUBJECTIVE: This is a 78 year old male patient who was sent to the emergency room from the assisted for abdominal pain and hematuria. On arrival to the ED patient was found with clear urine in the urostomy bag. A CT of the chest showing large left pleural effusion and possible spine metastasis. Framer and oncologist have been consulted. A urinalysis was positive and the preliminary urine culture results is growing Gram-negative rods. Patient was seen and examined at bedside in room 325. Patient is awake, alert and oriented to person and place. Patient is weak. No fever, temperature is 97.7. No dyspnea observe and patient is saturating 96% on room air. No abdominal tenderness on palpation. Patient continues on cefepime and doxycycline. No reports of nausea or vomiting. We will continue to follow patient's care. PHYSICAL EXAM EYES: Anicteric. Pupils equal and reactive. HENT: No oral thrush seen, moist Oral mucosa. NECK: Supple, no JVD or thyromegaly. LUNGS: Good air entry. No rales, no rhonchi. CARDIOVASCULAR: S1, S2 regular. No murmur heard. ABDOMEN: Soft, non tender, bowel sounds present, no organomegaly CENTRAL NERVOUS SYSTEM: Awake, alert, oriented x 1. SKIN: No rashes, no swelling. LYMPHATICS: No peripheral lymphadenopathy MUSCULOSKELETAL: No joint swelling, erythema or tenderness. EXTREMITIES: No cyanosis or clubbing. Weakness BACK: No deformity, no pressure ulcer. GENITOURINARY: Urostomy, yellow urine. Vital Sign (Last 12 Hours) 09/18/24 09/18/24 09/18/24 08:19 11:48 16:50 Temp 97.7 98.1 98.4 Pulse 99 67 92 Resp 18 17 18 B/P (MAP) 147/97 135/81 129/90 Pulse Ox 95 96 95 O2 Delivery Room Air Room Air Room Air Intake & Output (last 24hrs) 09/17/24 09/17/24 09/18/24 15:00 23:00 07:00 Intake Total 720 ml Output Total 300 ml Balance 720 ml -300 ml LABS: Laboratory: Test 09/17/24 18:00 09/17/24 17:43 09/17/24 14:24 09/17/24 10:49 Range/Units Sodium Level 138 136-145 mmol/L Potassium Level 4.3 3.5-5.1 mmol/L Chloride Level 105 101-111 mmol/L Carbon Dioxide Level 28 21-32 mmol/L Blood Urea Nitrogen 33 H 7-18 mg/dL Creatinine 1.2 0.5-1.3 mg/dL Glomerular Filtration Rate Calc 62 >90 mL/min Random Glucose 123 H 70-105 mg/dL Total Calcium 10.8 H 8.5-10.1 mg/dL Prothrombin Time 12.9 H 9.6-11.6 SEC Prothromb Time International Ratio 1.17 H 0.85-1.15 Lactic Acid Level 2.1 0.8-2.5 mmol/L B-Type Natriuretic Peptide 89 0-100 pg/mL Procalcitonin 0.13 0.05-0.5 ng/mL Test 09/17/24 05:47 Range/Units White Blood Count 11.0 H 4.8-10.8 K/uL Red Blood Count 4.83 4.50-6.20 MIL/uL Hemoglobin 13.6 L 14.0-18.0 g/dL Hematocrit 42.3 42-54 % Mean Corpuscular Volume 87.6 79-99 fL Mean Corpuscular Hemoglobin 28.2 27.0-33.0 pg Mean Corpuscular Hemoglobin Concent 32.2 32.0-36.0 g/dL Red Cell Distribution Width 13.1 11.0-15.5 % Platelet Count 140 130-400 K/uL Mean Platelet Volume 10.1 7.5-10.5 fL Immature Granulocyte % (Auto) 1.5 H 0-1 % Neutrophils (%) (Auto) 81.0 H 40.0-77.0 % Lymphocytes (%) (Auto) 8.1 L 21.0-51.0 % Monocytes (%) (Auto) 8.9 3.0-13.0 % Eosinophils (%) (Auto) 0.1 0.0-8.0 % Basophils (%) (Auto) 0.4 0.0-5.0 % Neutrophils # (Auto) 8.9 H 1.8-7.7 K/uL Lymphocytes # (Auto) 0.9 L 1.0-4.8 K/uL Monocytes # (Auto) 1.0 0.1-1.0 K/uL Eosinophils # (Auto) 0.01 0.00-0.70 K/uL Basophils # (Auto) 0.04 0.00-0.20 K/uL Absolute Immature Granulocyte (auto 0.16 0-1 K/uL Nucleated Red Blood Cells 0.0 0.0-0.19 % Magnesium Level 1.70 L 1.80-2.40 mg/dL ASSESSMENT: Pneumonia. Urinary tract infection. Leukocytosis. Left pleural effusion. 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 Acute renal failure, improving. History of bladder tumor with TURP. PLAN: Continue cefepime Continue doxycycline. Continue GI prophylaxis. We will follow up on the cultures. Continue pain management. Provide urostomy care. Oncologist has been consulted. We will monitor electrolytes. This case was reviewed and discussed with my supervising physician and the above assessment and plan was formulated and agreed upon. ATTESTATION BY PHYSICIAN I have seen and examined the patient. I reviewed the documentation, medical decision making, and treatment plan as noted by the mid-level provider above. I agree with the findings and plan of care. ANUP HARGROVE MD, MIRTA L WINCH DERRICK OPERATOR Sep 18, 2024 18:52
--- NOTE | 2024-09-18 20:27 | HMCSR ---
APPROVED REPORT EXAM: Two-dimensional and M-mode echocardiogram with Doppler and color Doppler. Study Details: HTN ,HLD INDICATION ICD: Pleural effusion 2D Dimensions RVDd3.3 cmLVEF(%)62.9 (>50%)LA ESV INDEX (4CH)7.50 mL/m2 IVSd1.3 (0.7-1.1cm)FS(%)33 % LVDd3.6 (3.8-5.6cm)LA (2D)1.3 (1.6-4.0cm) PWd1.0 (0.7-1.1cm)Ao Root(2D)3.5 (2.0-3.7cm) IVSs1.4 cmLVOT diam2.3 (1.8-2.4cm) LVDs2.4 (2.5-4.0cm) PWs1.1 cm M-Mode Dimensions EPSS0.5 cm LA (MM)1.9 (1.6-4.0cm) Ao Root(MM)3.6 (2.0-3.7cm) Aortic Valve AoV VTI0.2 mAo Mean GR2.0 mmHgLVOT VTI0.16 m MARY ALICE (VMAX)4.3 cm2AVA (VTI) 4.3 cm2 Mitral Valve MV E Vmax47.5 cm/sDECEL Tocg923 ms MV A Vmax79.1 cm/sP 1/2 T61 ms E/A ratio0.6MVA (PHT)3.6 cm2 TDI E/E' Rodyid45.6E/E' Bfebgoi26.0 Medial E' Peak V2.70 cm/sLateral E' Peak V2.50 cm/s Pulmonary Valve PV VTI0.18 mPV Mean GR4 mmHg Left Ventricle The left ventricle structure and function is normal. Suboptimal views of endocardium with no obvious regional wall motion abnormalities noted in views and images obtained Mild concentric left ventricul ar hypertrophy. Proximal septal thickening is noted. Left ventricular ejection fraction appears to be greater than 55% The left ventricular diastolic function is abnormal. Right Ventricle The right ventricle is normal size. The right ventricle is hyperdynamic. Atria Left atrium is not well visualized. The left atrium is small. The right atrium size is normal. Aortic Valve The aortic valve is mildly thickened. No aortic regurgitation is present. There is no aortic valvular stenosis. Mitral Valve The mitral valve is normal in structure and function. There is no mitral valve regurgitation noted. T here is no mitral valve stenosis. Tricuspid Valve Tricuspid valve is not well visualized. There is no tricuspid valve regurgitation noted. Pulmonic Valve Pulmonic valve is not well visualized. There is no pulmonic valvular regurgitation. Great Vessels The aortic root is normal in size. The ascending aorta is normal in size. The IVC is normal in size a nd collapses >50% with inspiration. Pericardium No pericardial effusion. Ascites is present. Other Information Technically limited study due to Patient could not be placed onto left side. Conclusion Left ventricular ejection fraction appears to be greater than 55% Mild concentric left ventricular hypertrophy. Proximal septal thickening is noted.
--- NOTE | 2024-09-18 20:40 | PN ---
[facility] PROGRESS NOTE Date Patient Seen: Sep 18, 2024 Time of Visit: 20:40 Supervising Physician: [Dr. No] Primary Care Physician: [Dr. Macias] Outpatient Specialists: [ ] Inpatient Consults: [BIS] PROBLEM LIST: Suspected hospital acquired pneumonia, POA Acute complicated cystitis Acute renal failure Hypertension Obesity Hematuria, improved Left pleural effusion Plan: Plan for thora in AM by IR, send fluid for cytology Continue broad spectrum antibiotics Follow cultures, adjust antibiotics as indicated Continue diuretics Follow oncology recommendation Follow NM bone scan results INTERVAL HISTORY: [Patient is evaluated at bedside. He was a very poor historian but does admit a history of spinal cancer. Can not recall whether it originated in his Be[place] or metastasized to his spine. He was also unable to recall any details regarding treatment or all long ago he was diagnosed. He was unable to recall the name of his oncologist. His urine culture is positive for 100 K CFUs, continued on cefepime and doxycycline. Labs are unremarkable, unchanged from previous. Procalcitonin is negative at 0.13, BNP is 89, lactic acid improved to 2.1. Patient did have some hemoptysis this morning which is more of blood-tinged sputum. Given his history of renal cancer, history of spinal cancer and T11 blastic focus on CT, this patient may have a malignant pleural effusion. Will order thoracentesis to evaluate for the same. He is pending a NM bone scan per oncology.] REVIEW OF SYSTEMS: 12 point ROS reviewed with patient. Pertinent positives mentioned above. Otherwise negative. PHYSICAL EXAM: GENERAL: alert, weak, awake oriented x 3 HEENT: EOMI, Sclera non icteric, moist mucosa NECK: Supple, no JVD, trachea midline LUNGS: Clear breath sounds bilaterally. No wheezes HEART: Regular rate and rhythm. Normal S1 and S2, without murmurs ABD: Abdomen soft, nontender. Bowel sounds present EXT: No clubbing cyanosis or edema NEURO: Alert and oriented to person, follows commands Vital Signs (last 8hr) Date Time Temp Pulse Resp B/P (MAP) Pulse Ox O2 Delivery O2 Flow Rate FiO2 09/18/24 19:00 97.9 100 24 129/67 94 Room Air 09/18/24 16:50 98.4 92 18 129/90 95 Room Air LABS: Hematology Labs: Test 09/17/24 05:47 Range/Units White Blood Count 11.0 H 4.8-10.8 K/uL Red Blood Count 4.83 4.50-6.20 MIL/uL Hemoglobin 13.6 L 14.0-18.0 g/dL Hematocrit 42.3 42-54 % Mean Corpuscular Volume 87.6 79-99 fL Mean Corpuscular Hemoglobin 28.2 27.0-33.0 pg Mean Corpuscular Hemoglobin Concent 32.2 32.0-36.0 g/dL Red Cell Distribution Width 13.1 11.0-15.5 % Platelet Count 140 130-400 K/uL Mean Platelet Volume 10.1 7.5-10.5 fL Immature Granulocyte % (Auto) 1.5 H 0-1 % Neutrophils (%) (Auto) 81.0 H 40.0-77.0 % Lymphocytes (%) (Auto) 8.1 L 21.0-51.0 % Monocytes (%) (Auto) 8.9 3.0-13.0 % Eosinophils (%) (Auto) 0.1 0.0-8.0 % Basophils (%) (Auto) 0.4 0.0-5.0 % Neutrophils # (Auto) 8.9 H 1.8-7.7 K/uL Lymphocytes # (Auto) 0.9 L 1.0-4.8 K/uL Monocytes # (Auto) 1.0 0.1-1.0 K/uL Eosinophils # (Auto) 0.01 0.00-0.70 K/uL Basophils # (Auto) 0.04 0.00-0.20 K/uL Absolute Immature Granulocyte (auto 0.16 0-1 K/uL Nucleated Red Blood Cells 0.0 0.0-0.19 % Chemistry Labs: Test 09/17/24 18:00 09/17/24 14:24 09/17/24 10:49 09/17/24 05:47 Range/Units Sodium Level 138 136-145 mmol/L Potassium Level 4.3 3.5-5.1 mmol/L Chloride Level 105 101-111 mmol/L Carbon Dioxide Level 28 21-32 mmol/L Blood Urea Nitrogen 33 H 7-18 mg/dL Creatinine 1.2 0.5-1.3 mg/dL Glomerular Filtration Rate Calc 62 >90 mL/min Random Glucose 123 H 70-105 mg/dL Total Calcium 10.8 H 8.5-10.1 mg/dL Lactic Acid Level 2.1 0.8-2.5 mmol/L B-Type Natriuretic Peptide 89 0-100 pg/mL Procalcitonin 0.13 0.05-0.5 ng/mL Magnesium Level 1.70 L 1.80-2.40 mg/dL Coagulation Labs: Test 09/17/24 17:43 Range/Units Prothrombin Time 12.9 H 9.6-11.6 SEC Prothromb Time International Ratio 1.17 H 0.85-1.15 DIAGNOSTICS / RADIOLOGY RESULTS: Reviewed PLAN NEURO: Minimize central acting medications as possible. Maintain fall precautions, adequate lighting during the day PULMONARY: Supplemental 02 as needed. Maintain aspiration precautions at all times CARDIOVASCULAR: Follow hemodynamics. Vital signs per facility protocol GI & NUTRITION: Continue with nutritional support. Continue stool softeners and laxatives as needed. KIDNEYS & ELECTROLYTES: Strict monitoring of intake, output and overall fluid balance. Avoid nephrotoxic medications to the extent possible. Medications to be dosed according to renal function. Monitor electrolytes and replace as needed ENDOCRINE: Maintain blood glucose between 100-180 at all times. Hypoglycemia protocol in place INFECTIOUS DISEASE: Trend temperature, WBC and procalcitonin level Follow cultures, deescalate antibiotics as soon as possible. Panculture if new onset fever ONCOLOGY/HEMATOLOGY/COAGULATION: Monitor for s/s of bleeding Monitor hemoglobin, coagulation studies as needed SKIN: Pressure ulcer prevention per facility protocol Specialty mattress ORTHO/REHAB: Continue PT/OT Prophylaxis: Continue GI and DVT prophylaxis Code Status: Full Resuscitation Disposition: TBD Other: Total patient care time exceeds 35 minutes excluding all procedures. KRZYSZTOF JOHNSON Sep 18, 2024 20:40
[2024-09-19] VITALS (14 sets, daily range): BP systolic 106–141; BP diastolic 66–92; PULSE 66–97; RESP 16–24; TEMP 96.8–98.2; O2SAT 95–97
[2024-09-19 05:51] LABS: HEMATOCRIT 42.3 % (42-54); MEAN CORPUSCULAR HEMOGLOBIN 28.2 pg (27.0-33.0); MEAN CORPUSCULAR HGB CONC 32.4 g/dL (32.0-36.0); RED BLOOD CELL COUNT(AUTO) 4.86 MIL/uL (4.50-6.20); RED CELL DISTRIBUTION WIDTH 13.4 % (11.0-15.5); WHITE BLOOD COUNT (AUTO) 12.5 K/uL (4.8-10.8)
[2024-09-19 05:56] LABS: CREATININE 1.3 mg/dL (0.5-1.3); MAGNESIUM 1.8 mg/dL (1.80-2.40)
[2024-09-19] MEDS: ketOROlac 15MG/ML VIAL (15MG/ML) IV PRN (06:20)
[2024-09-19] MEDS: MAGNESIUM 2GM PREMIX 50ML 50 ML IV PRN (07:19)
--- NOTE | 2024-09-19 09:00 | NUR ---
NONADMINISTERED AM MEDICATIONS COULD NOT ADMINISTER AM MEDICATIONS. PATIENT IS VERY GROGGY AND IS UNABLE TO STAY AWAKE AT THIS TIME TO SAFELY SWALLOW PO MEDICATION. PATIENT RECEIVED TORADOL DURING THE CHEMICAL HANDLER SHORTLY BEFORE MORNING SHIFT. ATTEMPTED TO WAIT FOR PATIENT TO AWAKEN MORE, HOWEVER, PATIENT CONTINUES GROGGY. OPENED MEDICATIONS WASTED. WILL MONITOR PATIENT'S LEVEL OF CONSCIOUSNESS.
--- NOTE | 2024-09-19 09:06 | NUR ---
RAD NUCLEAR MEDICINE SPOKE TO NURSE PATEL EXAM WILL BE REATTEMPTED TOMORROW.
--- NOTE | 2024-09-19 09:46 | PN ---
[facility] PROGRESS NOTE Date Patient Seen: Sep 19, 2024 Time of Visit: 09:46 Supervising Physician: [Dr. No] Primary Care Physician: [Dr. Macias] Outpatient Specialists: [ ] Inpatient Consults: [BIS] PROBLEM LIST: Suspected hospital acquired pneumonia, POA Acute complicated cystitis Acute renal failure Hypertension Obesity Hematuria, improved Left pleural effusion Plan: Plan for thora today by IR, send fluid for cytology Continue broad spectrum antibiotics Follow cultures, adjust antibiotics as indicated Continue diuretics Follow oncology recommendation Follow NM bone scan results INTERVAL HISTORY: [Patient is evaluated at bedside. He was a very poor historian but does admit a history of spinal cancer. Can not recall whether it originated in his spine or metastasized to his spine. He was also unable to recall any details regarding treatment or how long ago he was diagnosed. He was unable to recall the name of his oncologist. His urine culture is positive for 100 K CFUs, continued on cefepime and doxycycline. Labs are unremarkable, unchanged from previous. Procalcitonin is negative at 0.13, BNP is 89, lactic acid improved to 2.1. Patient did have some hemoptysis this morning which is more of blood-tinged sputum. Given his history of renal cancer, history of spinal cancer and T11 blastic focus on CT, this patient may have a malignant pleural effusion. Will order thoracentesis to evaluate for the same. He is pending a NM bone scan per oncology.] 09/19 patient is evaluated at bedside. He is resting but easily arousable. Unable to participate in history taking due to dementia. He is pending a thoracentesis today, we will evaluate cytology for suspected malignant pleural effusion. Echocardiogram shows no pericardial effusion per report. Patient also pending a nuclear medicine bone scan per Oncology. We will follow up with studies and further recommendations. REVIEW OF SYSTEMS: 12 point ROS reviewed with patient. Pertinent positives mentioned above. Otherwise negative. PHYSICAL EXAM: GENERAL: alert, weak, awake oriented x 3 HEENT: EOMI, Sclera non icteric, moist mucosa NECK: Supple, no JVD, trachea midline LUNGS: Clear breath sounds bilaterally. No wheezes HEART: Regular rate and rhythm. Normal S1 and S2, without murmurs ABD: Abdomen soft, nontender. Bowel sounds present EXT: No clubbing cyanosis or edema NEURO: Alert and oriented to person, follows commands Vital Signs (last 8hr) Date Time Temp Pulse Resp B/P (MAP) Pulse Ox O2 Delivery O2 Flow Rate FiO2 09/19/24 08:00 96.8 76 18 106/75 97 Room Air 09/19/24 08:00 96.8 76 18 106/75 97 Room Air 09/19/24 04:00 98.1 95 24 135/79 95 Room Air LABS: Hematology Labs: Test 09/19/24 05:27 Range/Units White Blood Count 12.5 H 4.8-10.8 K/uL Red Blood Count 4.86 4.50-6.20 MIL/uL Hemoglobin 13.7 L 14.0-18.0 g/dL Hematocrit 42.3 42-54 % Mean Corpuscular Volume 87.0 79-99 fL Mean Corpuscular Hemoglobin 28.2 27.0-33.0 pg Mean Corpuscular Hemoglobin Concent 32.4 32.0-36.0 g/dL Red Cell Distribution Width 13.4 11.0-15.5 % Platelet Count 164 130-400 K/uL Mean Platelet Volume 10.4 7.5-10.5 fL Nucleated Red Blood Cells 0.0 0.0-0.19 % Chemistry Labs: Test 09/19/24 05:27 09/17/24 14:24 09/17/24 10:49 Range/Units Sodium Level 144 136-145 mmol/L Potassium Level 4.0 3.5-5.1 mmol/L Chloride Level 108 101-111 mmol/L Carbon Dioxide Level 25 21-32 mmol/L Blood Urea Nitrogen 39 H 7-18 mg/dL Creatinine 1.3 0.5-1.3 mg/dL Glomerular Filtration Rate Calc 57 >90 mL/min Random Glucose 98 70-105 mg/dL Total Calcium 11.6 H 8.5-10.1 mg/dL Magnesium Level 1.80 1.80-2.40 mg/dL Lactic Acid Level 2.1 0.8-2.5 mmol/L B-Type Natriuretic Peptide 89 0-100 pg/mL Procalcitonin 0.13 0.05-0.5 ng/mL Coagulation Labs: Test 09/17/24 17:43 Range/Units Prothrombin Time 12.9 H 9.6-11.6 SEC Prothromb Time International Ratio 1.17 H 0.85-1.15 DIAGNOSTICS / RADIOLOGY RESULTS: [Reviewed] PLAN NEURO: Minimize central acting medications as possible. Maintain fall precautions, adequate lighting during the day PULMONARY: Supplemental 02 as needed. Maintain aspiration precautions at all times CARDIOVASCULAR: Follow hemodynamics. Vital signs per facility protocol GI & NUTRITION: Continue with nutritional support. Continue stool softeners and laxatives as needed. KIDNEYS & ELECTROLYTES: Strict monitoring of intake, output and overall fluid balance. Avoid nephrotoxic medications to the extent possible. Medications to be dosed according to renal function. Monitor electrolytes and replace as needed ENDOCRINE: Maintain blood glucose between 100-180 at all times. Hypoglycemia protocol in place INFECTIOUS DISEASE: Trend temperature, WBC and procalcitonin level Follow cultures, deescalate antibiotics as soon as possible. Panculture if new onset fever ONCOLOGY/HEMATOLOGY/COAGULATION: Monitor for s/s of bleeding Monitor hemoglobin, coagulation studies as needed SKIN: Pressure ulcer prevention per facility protocol Specialty mattress ORTHO/REHAB: Continue PT/OT Prophylaxis: Continue GI and DVT prophylaxis Code Status: Full Resuscitation Disposition: TBD Other: Total patient care time exceeds 35 minutes excluding all procedures. KRZYSZTOF JOHNSON Sep 19, 2024 09:46
--- NOTE | 2024-09-19 11:15 | NUR ---
U/S GD LT THORACENTESIS PROCEDURE PERFORMED BY DR Elia LUI. PUNCTURE SITE LT POSTERIOR BACK AND PATIENT TOLERATED PROCEDURE WELL. TOTAL REMOVED 800ML OF CLOUDY YELLOW FLUID. END OF PROCEDURE AT 1100. CATHETER REMOVED AND DRESSING APPLIED. NO BLEEDING NOTED. POST CHEST X-RAY TAKEN AND READ BY DR Elia LUI. NO PNEUMOTHORAX SEEN. REPORT GIVEN TO MAHAMED PATEL AND PATIENT TRANSPORTED TO [facility] VIA BED AT 1115. AAO X3 WITH NO C/O PAIN. SPECIMEN SENT TO LAB.
--- NOTE | 2024-09-19 11:30 | HMCIMG ---
CHEST 1VW HISTORY: Post left thoracentesis COMPARISON: None FINDINGS: A frontal projection of the chest was obtained. There is a small left pleural effusion. Patient is status post left thoracentesis. No pneumothorax is seen. The heart is borderline enlarged. Port-A-Cath is seen entering the right. Aortic calcifications are seen. IMPRESSION: 1. Small left pleural effusion. No pneumothorax.
[2024-09-19] MEDS: MEROPENEM 1GM 1 GM VIAL IV SCH (11:37)
--- NOTE | 2024-09-19 11:59 | HMCIMG ---
US THORACENTISIS/ASP W IMG IR HISTORY: Left pleural effusion COMPARISON: None TECHNIQUE: Informed consent was obtained. Risks and benefits were explained to the patient. A timeout was performed. Patient was prepped and draped in a sterile fashion. Local anesthetics was given as required. Under ultrasound guidance, left pleural effusion was localized. Left thoracentesis was performed. FINDINGS: 0.8 L of yellowish fluid was aspirated. Patient tolerated procedure without complication. Patient left the department in good condition. IMPRESSION: 1. Uncomplicated ultrasound guidance left thoracentesis.
[2024-09-19 12:23] LABS: GLUCOSE PLEURAL FLUID 93; PROTEIN PLEURAL FLUID 4.1 mg/dL
[2024-09-19 13:37] LABS: BODY FLUID RBC 3155 /cu. mm.; BODY FLUID WBC 974 /cu. mm.
--- NOTE | 2024-09-19 13:53 | NUR ---
NONADMINISTERED MEDICATIONS ROBITUSSIN AND GABAPENTIN NOT ADMINISTERED DUE TO PATIENT STILL BEING GROGGY. PATIENT IS SLIGHTLY MORE AWAKE THAN BEFORE, BUT WILL FALL ASLEEP IN THE MIDDLE OF SENTENCES. WILL HOLD PO MEDS UNTIL PATIENT IS ABLE TO STAY AWAKE AND SAFELY SWALLOW MEDICATIONS.
[2024-09-19 14:14] LABS: BF LYMPHOCYTE 47 %; BF MACROPHAGE 19; BF MESOTHELIAL 6 %; BF MONOCYTE 2 %; BF TOTAL CELLS COUNTED 100
[2024-09-19 14:15] LABS: COLOR,BODY FLUID YELLOW (LT YELLOW); SPECIMENTYPE,BODY FLUID PLEURAL
[2024-09-19 14:16] LABS: APPEARANCE BODY FLUID SLIGHTLY CLOUDY (CLEAR); TOTAL VOLUME,BODY FLUID 800 mL
[2024-09-19 14:17] LABS: PH PLEURAL FLUID 7
--- NOTE | 2024-09-19 16:39 | PN ---
This is a 78-year-old male with history of BPH, hypertension, who presented to the hospital with abdominal pain and hematuria. Pain localized to the flank. No fever, no chills. Upon arrival in the Emergency Room, the patient found with clear urine in the urostomy bag. The patient had CT of the abdomen was one, which shows large pleural effusion and pneumonia. The patient was transferred from [facility]. No documented fever. He denies rashes or itchiness. Patient CT scan showed T11 blastic lesion suspicious for metastatic disease to the bone. There was a plan for bone scan but could not be done. And we cannot do it at this time till tomorrow. Patient had left thoracentesis with removal of 800 cc. PHYSICAL EXAMINATION: GENERAL: Elderly male, awake. VITAL SIGNS: Temperature 98.4, pulse 64, respiratory rate 18, BP 151/80. EYES: No icterus. Pupils equal and reactive. HENT: No oral lesions seen. Moist oral mucosa. NECK: Supple. No JVD or thyromegaly. LUNGS: Good air entry. No rales, no rhonchi. CARDIOVASCULAR: S1, S2 regular. No murmur heard. ABDOMEN: Soft. Bowel sound is present. Urostomy on the right side functioning well. CENTRAL NERVOUS SYSTEM: Awake, alert, oriented x 3. No focal deficits. SKIN: No rashes, no itchiness. LYMPHATIC: No peripheral lymphadenopathy. BACK: No deformity, no pressure ulcer. HEMATOLOGIC: No bleeding or petechial lesions seen. MUSCULOSKELETAL: No joint swelling, erythema, or tenderness. VASCULAR: No ischemia or gangrene of extremities. ASSESSMENT: 1. T12 blastic lesions suspicious for malignancy. There was a plan for bone scan to be done but could not be done. There is plan to do it tomorrow. 2. Left pleural effusion Status post thoracentesis with 1800 cc removed 4. Enlargement of the prostate 4. Mild anemia 5. Spinal stenosis 6. Hypertension 7. Severe pain 8. Pneumonia 9. Acute on chronic renal failure 10. Hematuria Plan 1. There is plan to have bone scan done tomorrow. Will follow-up with the result closely. 2. It seems the patient is anxious. Will give him Ativan 0.5 mg IV before procedure done. 3. Patient with severe pain to the lower back with the pain is musculoskeletal. This patient to receive Toradol 15 mg every 8 hours as needed 4. We will ask for PSA to be done for this patient. 5. We need more information about this patient especially possibility of history of bladder tumor. We need to know where this patient is seen and if there is any pathology. Vitals/Labs Vital Signs Date Time Temp Pulse Resp B/P (MAP) Pulse Ox O2 Delivery O2 Flow Rate FiO2 09/19/24 16:00 98.1 86 19 141/92 96 Room Air 09/19/24 09:09 0 21 Laboratory Tests 09/19/24 05:27 Medications Current Medications Ceftriaxone Sodium 1 gm ONCE ONCE IVPB; Start 09/16/24 at 16:00; Stop 09/16/24 at 16:43; Status DC Sodium Chloride 1,000 ml @ 500 mls/hr Q2H IV Last administered on 09/17/24at 00:09; Start 09/16/24 at 16:00; Stop 09/17/24 at 11:47; Status DC Azithromycin 250 ml @ 250 mls/hr Q24H IVPB; Start 09/16/24 at 16:00; Stop 09/16/24 at 16:43; Status DC Cefepime HCl 1 gm Q8H IVPB Last administered on 09/17/24at 11:43; Start 09/16/24 at 16:30; Stop 09/17/24 at 13:53; Status DC Doxycycline Hyclate 100 mg BID PO Last administered on 09/19/24at 09:09; Start 09/16/24 at 21:00; Stop 09/19/24 at 09:53; Status DC Acetaminophen 650 mg Q4H PRN PO; Start 09/16/24 at 16:30; Stop 10/16/24 at 16:29 Ondansetron HCl 4 mg Q6H PRN PO; Start 09/16/24 at 16:30; Stop 10/16/24 at 16:29 Morphine Sulfate 2 mg Q6H6 PRN IVP Last administered on 09/18/24at 08:49; Start 09/16/24 at 17:00; Stop 09/23/24 at 16:59 Tramadol HCl 50 mg Q6H PRN PO Last administered on 09/18/24at 02:49; Start 09/17/24 at 14:00; Stop 09/18/24 at 10:12; Status DC Cefepime HCl 1 gm Q12H IVPB Last administered on 09/19/24at 00:15; Start 09/18/24 at 00:00; Stop 09/19/24 at 09:53; Status DC Clonidine HCl 0.1 mg AD PRN PO; Start 09/17/24 at 15:00; Stop 09/17/24 at 14:48; Status DC Docusate Sodium 100 mg BID PO Last administered on 09/18/24at 20:15; Start 09/17/24 at 21:00; Stop 10/17/24 at 20:59 Gabapentin 100 mg TID PO Last administered on 09/18/24at 20:15; Start 09/17/24 at 21:00; Stop 10/17/24 at 20:59 Guaifenesin 200 mg QID PO Last administered on 09/18/24at 08:54; Start 09/17/24 at 17:00; Stop 10/17/24 at 16:59 Pantoprazole Sodium 40 mg DAILY PO Last administered on 09/18/24at 08:56; Start 09/18/24 at 09:00; Stop 10/18/24 at 08:59 Polyethylene Glycol 17 gm DAILY PO; Start 09/18/24 at 09:00; Stop 10/18/24 at 08:59 Propranolol HCl 10 mg DAILY PO Last administered on 09/18/24at 08:55; Start 09/18/24 at 09:00; Stop 10/18/24 at 08:59 Tamsulosin HCl 0.4 mg DAILYBKFST PO Last administered on 09/18/24at 08:55; Start 09/18/24 at 08:00; Stop 10/18/24 at 07:59 Miscellaneous Medication 1 drop Q4PRN OP; Start 09/17/24 at 15:00; Stop 09/17/24 at 14:49; Status DC Home Med (Dutasteride 0.5 MG) DAILY PO; Start 09/18/24 at 09:00; Stop 10/18/24 at 08:59 Home Med (L.acidoph & Paracasei,B.lactis (Probiotic... DAILY PO; Start 09/18/24 at 09:00; Stop 10/18/24 at 08:59 Lactulose 20 gm DAILY PO Last administered on 09/18/24at 08:53; Start 09/18/24 at 09:00; Stop 10/18/24 at 08:59 Home Med (Melatonin 1 CAP) HS PO; Start 09/17/24 at 21:00; Stop 10/17/24 at 20:59 Multivitamins Therapeutic 1 tab DAILY PO Last administered on 09/18/24at 08:56; Start 09/18/24 at 09:00; Stop 10/18/24 at 08:59 Miscellaneous Medication 5 mg DAILY PO; Start 09/18/24 at 09:00; Stop 09/17/24 at 14:55; Status DC Home Med (Zinc Sulfate (Zinc)... DAILY PO; Start 09/18/24 at 09:00; Stop 10/18/24 at 08:59 Home Med ([Vitamin D3] 2,000 UNITS) DAILY PO; Start 09/18/24 at 09:00; Stop 10/18/24 at 08:59 Magnesium Sulfate 50 ml @ 0 mls/hr PROTOCOL PRN IV Last administered on 09/19/24at 07:19; Start 09/17/24 at 17:30; Stop 10/17/24 at 17:29 Furosemide 20 mg DAILY PO Last administered on 09/18/24at 08:55; Start 09/18/24 at 09:00; Stop 10/18/24 at 08:59 Ketorolac Tromethamine 15 mg Q6H PRN IV Last administered on 09/19/24at 06:20; Start 09/18/24 at 13:30; Stop 09/23/24 at 13:29 Lorazepam 0.5 mg ONCE ONCE IVP; Start 09/18/24 at 17:30; Stop 09/18/24 at 17:31; Status DC Meropenem 1 gm Q12H IV Last administered on 09/19/24at 11:37; Start 09/19/24 at 11:30; Stop 09/29/24 at 11:29 BIANKA CAMPBELL MD Sep 19, 2024 16:39
--- NOTE | 2024-09-19 18:26 | PN ---
INFECTIOUS DISEASE PROGRESS NOTE Date of Service: Sep 19, 2024 SUBJECTIVE: This is a 78 year old male patient who was sent to the emergency room from the correction for abdominal pain and hematuria. On arrival to the ED patient was found with clear urine in the urostomy bag. A CT of the chest showing large left pleural effusion and possible spine metastasis. [employer] Apprentice and oncologist have been consulted. A urinalysis was positive. Patient was seen and examined at bedside in room 325. Patient is awake and alert. The final urine culture results came back positive for ESBL, E coli. Patient is afebrile, temperature 98.6. WBC still slightly elevated at 12.5. No reports of nausea or vomiting. Patient underwent a left paracentesis by IR today with 800 fluid removed. No dyspnea observe. We will have Physical therapy evaluate and treat. We will continue to follow patient's care. PHYSICAL EXAM EYES: Anicteric. Pupils equal and reactive. HENT: No oral thrush seen, moist Oral mucosa. NECK: Supple, no JVD or thyromegaly. LUNGS: Good air entry. No rales, no rhonchi. CARDIOVASCULAR: S1, S2 regular. No murmur heard. ABDOMEN: Soft, non tender, bowel sounds present, no organomegaly CENTRAL NERVOUS SYSTEM: Awake, alert, oriented x 1. SKIN: No rashes, no swelling. LYMPHATICS: No peripheral lymphadenopathy MUSCULOSKELETAL: No joint swelling, erythema or tenderness. EXTREMITIES: No cyanosis or clubbing. Weakness BACK: No deformity, no pressure ulcer. GENITOURINARY: Urostomy, yellow urine. Vital Sign (Last 12 Hours) 09/19/24 09/19/24 09/19/24 09/19/24 08:00 08:00 09:09 11:10 Temp 96.8 96.8 97.5 Pulse 76 76 86 Resp 18 18 16 B/P (MAP) 106/75 106/75 118/70 Pulse Ox 97 97 97 95 O2 Delivery Room Air Room Air Room Air* Room Air O2 Flow Rate 0 FiO2 21 09/19/24 09/19/24 09/19/24 09/19/24 11:10 11:25 11:25 11:40 Temp 97.2 Pulse 86 66 66 88 Resp 16 B/P (MAP) 118/70 126/69 126/69 125/79 Pulse Ox 95 97 97 95 O2 Delivery Room Air Room Air Room Air Room Air 09/19/24 09/19/24 09/19/24 09/19/24 11:40 11:55 11:55 12:25 Pulse 88 73 73 77 B/P (MAP) 125/79 126/70 126/70 119/72 Pulse Ox 95 95 95 94 O2 Delivery Room Air Room Air Room Air Room Air 09/19/24 09/19/24 09/19/24 09/19/24 12:25 12:55 12:55 13:55 Pulse 77 77 77 78 B/P (MAP) 119/72 135/75 135/75 126/74 Pulse Ox 95 94 95 93 O2 Delivery Room Air Room Air Room Air Room Air 09/19/24 09/19/24 09/19/24 13:55 16:00 16:00 Temp 98.1 98.1 Pulse 78 86 86 Resp 19 19 B/P (MAP) 126/74 141/92 141/92 Pulse Ox 95 96 96 O2 Delivery Room Air Room Air Room Air Intake & Output (last 24hrs) 09/18/24 09/18/24 09/19/24 15:00 23:00 07:00 Output Total 620 ml 500 ml 500 ml Balance -620 ml -500 ml -500 ml LABS: Laboratory: Test 09/19/24 11:00 09/19/24 05:27 Range/Units Body Fluid Source PLEURAL Body Fluid Volume 800 mL Body Fluid Color YELLOW LT YELLOW Body Fluid Supernatant Appearance SLIGHTLY CLOUDY CLEAR Body Fluid WBC 974 /cu. mm. Body Fluid RBC 3155 /cu. mm. Body Fluid Neutrophils 26.0 % Body Fluid Lymphocytes 47 % Body Fluid Monocytes % 2 % Body Fluid Macrophages (%) 19 Body Fluid Mesothelial Cells (%) 6 % Pleural Fluid pH 7 Pleural Fluid Total Protein 4.1 mg/dL Pleural Fluid LDH 171 U/L Pleural Fluid Glucose 93 White Blood Count 12.5 H 4.8-10.8 K/uL Red Blood Count 4.86 4.50-6.20 MIL/uL Hemoglobin 13.7 L 14.0-18.0 g/dL Hematocrit 42.3 42-54 % Mean Corpuscular Volume 87.0 79-99 fL Mean Corpuscular Hemoglobin 28.2 27.0-33.0 pg Mean Corpuscular Hemoglobin Concent 32.4 32.0-36.0 g/dL Red Cell Distribution Width 13.4 11.0-15.5 % Platelet Count 164 130-400 K/uL Mean Platelet Volume 10.4 7.5-10.5 fL Nucleated Red Blood Cells 0.0 0.0-0.19 % Sodium Level 144 136-145 mmol/L Potassium Level 4.0 3.5-5.1 mmol/L Chloride Level 108 101-111 mmol/L Carbon Dioxide Level 25 21-32 mmol/L Blood Urea Nitrogen 39 H 7-18 mg/dL Creatinine 1.3 0.5-1.3 mg/dL Glomerular Filtration Rate Calc 57 >90 mL/min Random Glucose 98 70-105 mg/dL Total Calcium 11.6 H 8.5-10.1 mg/dL Magnesium Level 1.80 1.80-2.40 mg/dL ASSESSMENT: Pneumonia. Urinary tract infection. Leukocytosis. Left pleural effusion, s/p left paracentesis by IR with 800 fluid removed. 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 Acute renal failure, improving. History of bladder tumor with TURP. PLAN: Discontinue cefepime Start patient on Meropenem. Continue GI prophylaxis. Continue pain management. Provide urostomy care. Oncologist has evaluated patient and is pending a bone scan. We will monitor electrolytes. This case was reviewed and discussed with my supervising physician and the above assessment and plan was formulated and agreed upon. ATTESTATION BY PHYSICIAN I have seen and examined the patient. I reviewed the documentation, medical decision making, and treatment plan as noted by the mid-level provider above. I agree with the findings and plan of care. ANUP HARGROVE MD, MIRTA L FNP Sep 19, 2024 18:26
[2024-09-20] VITALS (7 sets, daily range): BP systolic 119–142; BP diastolic 75–80; PULSE 63–93; RESP 16–22; TEMP 97.9–98.5; O2SAT 97
[2024-09-20 05:33] LABS: BASOPHILS # (AUTO) 0.05 K/uL (0.00-0.20); BASOPHILS % (AUTO) 0.4 % (0.0-5.0); EOSINOPHILS # (AUTO) 0.01 K/uL (0.00-0.70); EOSINOPHILS % (AUTO) 0.1 % (0.0-8.0); HEMATOCRIT 40.9 % (42-54); IMMATURE GRANULOCYTE ABSOLUTE 0.28 K/uL (0-1); LYMPHOCYTES % (AUTO) 7.2 % (21.0-51.0); MEAN CORPUSCULAR HEMOGLOBIN 28.5 pg (27.0-33.0); MEAN CORPUSCULAR VOLUME 86.3 fL (79-99); MONOCYTES # (AUTO) 1.2 K/uL (0.1-1.0); MONOCYTES % (AUTO) 9.2 % (3.0-13.0); NEUTROPHILS # (AUTO) 10.9 K/uL (1.8-7.7); PLATELET COUNT (AUTO) 164 K/uL (130-400); RED BLOOD CELL COUNT(AUTO) 4.74 MIL/uL (4.50-6.20); RED CELL DISTRIBUTION WIDTH 13.5 % (11.0-15.5); WHITE BLOOD COUNT (AUTO) 13.4 K/uL (4.8-10.8)
[2024-09-20 06:04] LABS: ALBUMIN 2.2 g/dL (3.5-5.0); BILIRUBIN,TOTAL 0.7 mg/dL (0.2-1.0); CREATININE 1.3 mg/dL (0.5-1.3); MAGNESIUM 2.1 mg/dL (1.80-2.40); POTASSIUM 3.9 mmol/L (3.5-5.1); TOTAL PROTEIN, SERUM 5.9 g/dL (6.0-8.3)
[2024-09-20] MEDS: LORazepam 2 MG/ML 1 ML VIAL IVP ONE ×2 (08:30→11:59)
--- NOTE | 2024-09-20 11:43 | PN ---
[facility] PROGRESS NOTE Date Patient Seen: Sep 20, 2024 Time of Visit: 11:37 Supervising Physician: [Dr Wanda Arthur Primary Care Physician: [Dr. Macias] Outpatient Specialists: [ ] Inpatient Consults: [BIS] PROBLEM LIST: Suspected hospital acquired pneumonia, POA Acute complicated cystitis T-11 Blastic Lesion - suspicious for malignancy Acute renal failure POA-resolved Hypertension Obesity Hematuria, improved Left pleural effusion - status post left thoracentesis by IR -800 mL output Plan Summary: Supplemental oxygen as needed Continue antibiotics per Infectious Disease Follow culture results and modify antibiotics accordingly Follow up on NM bone scan Continue diuretics Follow oncology recommendation INTERVAL HISTORY: [Patient is evaluated at bedside. He was a very poor historian but does admit a history of spinal cancer. Can not recall whether it originated in his spine or metastasized to his spine. He was also unable to recall any details regarding treatment or how long ago he was diagnosed. He was unable to recall the name of his oncologist. His urine culture is positive for 100 K CFUs, continued on cefepime and doxycycline. Labs are unremarkable, unchanged from previous. Procalcitonin is negative at 0.13, BNP is 89, lactic acid improved to 2.1. Patient did have some hemoptysis this morning which is more of blood-tinged sputum. Given his history of renal cancer, history of spinal cancer and T11 blastic focus on CT, this patient may have a malignant pleural effusion. Will order thoracentesis to evaluate for the same. He is pending a NM bone scan per oncology.] 09/19 patient is evaluated at bedside. He is resting but easily arousable. Unable to participate in history taking due to dementia. He is pending a tho racentesis today, we will evaluate cytology for suspected malignant pleural effusion. Echocardiogram shows no pericardial effusion per report. Patient also pending a nuclear medicine bone scan per Oncology. We will follow up with studies and further recommendations. 09/20 - patient is laying in bed resting quietly with no signs of acute distress. Patient continues with altered mental status secondary to advanced dementia. Patient is scheduled for a nuclear medicine bone scan this morning. Patient underwent a left thoracentesis by IR yesterday afternoon was 800 mL output. No postprocedure x-ray was obtained. We will follow. Patient remains on room air with no signs of respiratory distress. Vital Signs are stable. REVIEW OF SYSTEMS: 12 point ROS reviewed with patient. Pertinent positives mentioned above. Otherwise negative. PHYSICAL EXAM: GENERAL: alert, weak, awake oriented x 3 HEENT: EOMI, Sclera non icteric, moist mucosa NECK: Supple, no JVD, trachea midline LUNGS: Clear breath sounds bilaterally. No wheezes HEART: Regular rate and rhythm. Normal S1 and S2, without murmurs ABD: Abdomen soft, nontender. Bowel sounds present EXT: No clubbing cyanosis or edema NEURO: Alert and oriented to person, follows commands Vital Signs (last 8hr) Date Time Temp Pulse Resp B/P (MAP) Pulse Ox O2 Delivery O2 Flow Rate FiO2 09/20/24 08:18 97 Room Air* 0 21 09/20/24 08:05 98.2 93 22 142/80 97 LABS: Hematology Labs: Test 09/20/24 05:13 Range/Units White Blood Count 13.4 H 4.8-10.8 K/uL Red Blood Count 4.74 4.50-6.20 MIL/uL Hemoglobin 13.5 L 14.0-18.0 g/dL Hematocrit 40.9 L 42-54 % Mean Corpuscular Volume 86.3 79-99 fL Mean Corpuscular Hemoglobin 28.5 27.0-33.0 pg Mean Corpuscular Hemoglobin Concent 33.0 32.0-36.0 g/dL Red Cell Distribution Width 13.5 11.0-15.5 % Platelet Count 164 130-400 K/uL Mean Platelet Volume 10.3 7.5-10.5 fL Immature Granulocyte % (Auto) 2.1 H 0-1 % Neutrophils (%) (Auto) 81.0 H 40.0-77.0 % Lymphocytes (%) (Auto) 7.2 L 21.0-51.0 % Monocytes (%) (Auto) 9.2 3.0-13.0 % Eosinophils (%) (Auto) 0.1 0.0-8.0 % Basophils (%) (Auto) 0.4 0.0-5.0 % Neutrophils # (Auto) 10.9 H 1.8-7.7 K/uL Lymphocytes # (Auto) 1.0 1.0-4.8 K/uL Monocytes # (Auto) 1.2 H 0.1-1.0 K/uL Eosinophils # (Auto) 0.01 0.00-0.70 K/uL Basophils # (Auto) 0.05 0.00-0.20 K/uL Absolute Immature Granulocyte (auto 0.28 0-1 K/uL Nucleated Red Blood Cells 0.0 0.0-0.19 % Chemistry Labs: Test 09/20/24 05:13 09/18/24 11:58 Range/Units Sodium Level 143 136-145 mmol/L Potassium Level 3.9 3.5-5.1 mmol/L Chloride Level 108 101-111 mmol/L Carbon Dioxide Level 24 21-32 mmol/L Blood Urea Nitrogen 43 H 7-18 mg/dL Creatinine 1.3 0.5-1.3 mg/dL Glomerular Filtration Rate Calc 57 >90 mL/min Random Glucose 92 70-105 mg/dL Total Calcium 11.2 H 8.5-10.1 mg/dL Magnesium Level 2.10 1.80-2.40 mg/dL Total Bilirubin 0.7 0.2-1.0 mg/dL Aspartate Amino Transf (AST/SGOT) 24 10-37 U/L Alanine Aminotransferase (ALT/SGPT) 24 12-78 U/L Alkaline Phosphatase 260 H 50-136 U/L Total Protein 5.9 L 6.0-8.3 g/dL Albumin 2.2 L 3.5-5.0 g/dL Prostate Specific Ag, Ultra-Sensitv <0.006 0.000-4.000 ng/mL DIAGNOSTICS / RADIOLOGY RESULTS: [ ] PLAN NEURO: Minimize central acting medications as possible. Maintain fall precautions, adequate lighting during the day PULMONARY: Supplemental 02 as needed. Maintain aspiration precautions at all times CARDIOVASCULAR: Follow hemodynamics. Vital signs per facility protocol GI & NUTRITION: Continue with nutritional support. Continue stool softeners and laxatives as needed. KIDNEYS & ELECTROLYTES: Strict monitoring of intake, output and overall fluid balance. Avoid nephrotoxic medications to the extent possible. Medications to be dosed according to renal function. Monitor electrolytes and replace as needed ENDOCRINE: Maintain blood glucose between 100-180 at all times. Hypoglycemia protocol in place INFECTIOUS DISEASE: Trend temperature, WBC and procalcitonin level Follow cultures, deescalate antibiotics as soon as possible. Panculture if new onset fever ONCOLOGY/HEMATOLOGY/COAGULATION: Monitor for s/s of bleeding Monitor hemoglobin, coagulation studies as needed SKIN: Pressure ulcer prevention per facility protocol Specialty mattress ORTHO/REHAB: Continue PT/OT Prophylaxis: Continue GI and DVT prophylaxis Code Status: Full Resuscitation Disposition: As per attending. Other: Total patient care time exceeds 35 minutes excluding all procedures. ATTESTATION BY PHYSICIAN The patient has been seen and evaluated, the case has been discussed with the CHIP MUCKER, I agree with the clinical findings and plan of care. Ok Arthur MD, ECTOR N NP Sep 20, 2024 11:43
--- NOTE | 2024-09-20 11:45 | HMCIMG ---
NM BONE SCAN WHOLE BODY REASON: Metastatic bone lesion. COMPARISON: None TECHNIQUE: Total body bone imaging were performed with 24 mCi of technetium MDP through intravenous route. FINDINGS: Extensive increase activities are noted involving bilateral ribs, hips, lower extremity, spine and skull as visible metastases. This is worse in the right hip and right femur. IMPRESSION: Extensive bone metastases worse in the right hip and right femur.
--- NOTE | 2024-09-20 12:40 | NUR ---
MEDICATION HELD HELD 1300 DOSE OF ROBITUSSIN DUE TO PATIENT BEING GROGGY. PATIENT WAS PREMEDICATED WITH LORAZEPAM PER MD ORDER PRIOR TO BONE SCAN. WILL GIVE PO MEDICATIONS WHEN PATIENT IS MORE ALERT AND ABLE SAFELY SWALLOW MEDICATIONS.
--- NOTE | 2024-09-20 13:45 | NUR ---
Attempted PT eval however patient difficult to arouse to participate with PT. PT team to follow.
--- NOTE | 2024-09-20 14:16 | PN ---
This is a 78-year-old male with history of BPH, hypertension, who presented to the hospital with abdominal pain and hematuria. Pain localized to the flank. No fever, no chills. Upon arrival in the Emergency Room, the patient found with clear urine in the urostomy bag. The patient had CT of the abdomen was one, which shows large pleural effusion and pneumonia. The patient was transferred from long-term. No documented fever. He denies rashes or itchiness. Patient CT scan showed T11 blastic lesion suspicious for metastatic disease to the bone. Bone scan was done which showed extensive disease all over the body. PSA was normal. This patient have metastatic disease to the bone with the patient have stage IV. Patient had left thoracentesis with removal of 800 cc. There is nobody around the patient with the patient is alert but not fully oriented PHYSICAL EXAMINATION: GENERAL: Elderly male, awake. VITAL SIGNS: Temperature 98.4, pulse 64, respiratory rate 18, BP 151/80. EYES: No icterus. Pupils equal and reactive. HENT: No oral lesions seen. Moist oral mucosa. NECK: Supple. No JVD or thyromegaly. LUNGS: Good air entry. No rales, no rhonchi. CARDIOVASCULAR: S1, S2 regular. No murmur heard. ABDOMEN: Soft. Bowel sound is present. Urostomy on the right side functioning well. CENTRAL NERVOUS SYSTEM: Awake, alert, Not oriented. No focal deficits. SKIN: No rashes, no itchiness. LYMPHATIC: No peripheral lymphadenopathy. BACK: No deformity, no pressure ulcer. HEMATOLOGIC: No bleeding or petechial lesions seen. MUSCULOSKELETAL: No joint swelling, erythema, or tenderness. VASCULAR: No ischemia or gangrene of extremities. ASSESSMENT: 1. Metastatic disease to the bone by bone scan. T12 blastic lesions suspicious for malignancy. There was a plan for bone scan to be done but could not be done. There is plan to do it tomorrow. 2. Left pleural effusion Status post thoracentesis with 1800 cc removed 4. Enlargement of the prostate 4. Mild anemia 5. Spinal stenosis 6. Hypertension 7. Severe pain 8. Pneumonia 9. Acute on chronic renal failure 10. Hematuria 11. Change mental status Plan 1. Bone scan showing disease all over the bone consistent with stage IV metastatic disease to the bone. There was nobody around the patient. It seems maybe this patient have a history of kidney cancer in the past. This patient will need CT scan chest abdomen pelvis with IV contrast if possible 2. It seems the patient is anxious. Will give him Ativan 0.5 mg IV before procedure done. 3. Patient with severe pain to the lower back with the pain is musculoskeletal. This patient to receive Toradol 15 mg every 8 hours as needed 4. PSA level was normal. So this patient most likely have metastatic disease from different origin. 5. We need more information about this patient especially possibility of history of bladder tumor. We need to know where this patient is seen and if there is any pathology. Vitals/Labs Vital Signs Date Time Temp Pulse Resp B/P (MAP) Pulse Ox O2 Delivery O2 Flow Rate FiO2 09/20/24 11:57 97.9 63 19 119/75 97 09/20/24 08:18 Room Air* 0 21 Laboratory Tests 09/20/24 05:13 Medications Current Medications Ceftriaxone Sodium 1 gm ONCE ONCE IVPB; Start 09/16/24 at 16:00; Stop 09/16/24 at 16:43; Status DC Sodium Chloride 1,000 ml @ 500 mls/hr Q2H IV Last administered on 09/17/24at 00:09; Start 09/16/24 at 16:00; Stop 09/17/24 at 11:47; Status DC Azithromycin 250 ml @ 250 mls/hr Q24H IVPB; Start 09/16/24 at 16:00; Stop 09/16/24 at 16:43; Status DC Cefepime HCl 1 gm Q8H IVPB Last administered on 09/17/24at 11:43; Start 09/16/24 at 16:30; Stop 09/17/24 at 13:53; Status DC Doxycycline Hyclate 100 mg BID PO Last administered on 09/19/24at 09:09; Start 09/16/24 at 21:00; Stop 09/19/24 at 09:53; Status DC Acetaminophen 650 mg Q4H PRN PO; Start 09/16/24 at 16:30; Stop 10/16/24 at 16:29 Ondansetron HCl 4 mg Q6H PRN PO; Start 09/16/24 at 16:30; Stop 10/16/24 at 16:29 Morphine Sulfate 2 mg Q6H6 PRN IVP Last administered on 09/19/24at 21:16; Start 09/16/24 at 17:00; Stop 09/23/24 at 16:59 Tramadol HCl 50 mg Q6H PRN PO Last administered on 09/18/24at 02:49; Start 09/17/24 at 14:00; Stop 09/18/24 at 10:12; Status DC Cefepime HCl 1 gm Q12H IVPB Last administered on 09/19/24at 00:15; Start 09/18/24 at 00:00; Stop 09/19/24 at 09:53; Status DC Clonidine HCl 0.1 mg AD PRN PO; Start 09/17/24 at 15:00; Stop 09/17/24 at 14:48; Status DC Docusate Sodium 100 mg BID PO Last administered on 09/20/24at 08:18; Start 09/17/24 at 21:00; Stop 10/17/24 at 20:59 Gabapentin 100 mg TID PO Last administered on 09/20/24at 08:18; Start 09/17/24 at 21:00; Stop 10/17/24 at 20:59 Guaifenesin 200 mg QID PO Last administered on 09/20/24at 08:18; Start 09/17/24 at 17:00; Stop 10/17/24 at 16:59 Pantoprazole Sodium 40 mg DAILY PO Last administered on 09/20/24at 08:18; Start 09/18/24 at 09:00; Stop 10/18/24 at 08:59 Polyethylene Glycol 17 gm DAILY PO Last administered on 09/20/24at 08:18; Start 09/18/24 at 09:00; Stop 10/18/24 at 08:59 Propranolol HCl 10 mg DAILY PO Last administered on 09/20/24at 08:18; Start 09/18/24 at 09:00; Stop 10/18/24 at 08:59 Tamsulosin HCl 0.4 mg DAILYBKFST PO Last administered on 09/20/24at 08:18; Start 09/18/24 at 08:00; Stop 10/18/24 at 07:59 Miscellaneous Medication 1 drop Q4PRN OP; Start 09/17/24 at 15:00; Stop 09/17/24 at 14:49; Status DC Home Med (Dutasteride 0.5 MG) DAILY PO; Start 09/18/24 at 09:00; Stop 10/18/24 at 08:59 Home Med (L.acidoph & Paracasei,B.lactis (Probiotic... DAILY PO; Start 09/18/24 at 09:00; Stop 10/18/24 at 08:59 Lactulose 20 gm DAILY PO Last administered on 09/20/24at 08:18; Start 09/18/24 at 09:00; Stop 10/18/24 at 08:59 Home Med (Melatonin 1 CAP) HS PO; Start 09/17/24 at 21:00; Stop 10/17/24 at 20:59 Multivitamins Therapeutic 1 tab DAILY PO Last administered on 09/20/24at 08:18; Start 09/18/24 at 09:00; Stop 10/18/24 at 08:59 Miscellaneous Medication 5 mg DAILY PO; Start 09/18/24 at 09:00; Stop 09/17/24 at 14:55; Status DC Home Med (Zinc Sulfate (Zinc)... DAILY PO; Start 09/18/24 at 09:00; Stop 10/18/24 at 08:59 Home Med ([Vitamin D3] 2,000 UNITS) DAILY PO; Start 09/18/24 at 09:00; Stop 10/18/24 at 08:59 Magnesium Sulfate 50 ml @ 0 mls/hr PROTOCOL PRN IV Last administered on 09/19/24at 07:19; Start 09/17/24 at 17:30; Stop 10/17/24 at 17:29 Furosemide 20 mg DAILY PO Last administered on 09/20/24at 08:18; Start 09/18/24 at 09:00; Stop 10/18/24 at 08:59 Ketorolac Tromethamine 15 mg Q6H PRN IV Last administered on 09/20/24at 08:19; Start 09/18/24 at 13:30; Stop 09/23/24 at 13:29 Lorazepam 0.5 mg ONCE ONCE IVP; Start 09/18/24 at 17:30; Stop 09/18/24 at 17:31; Status DC Meropenem 1 gm Q12H IV Last administered on 09/20/24at 11:59; Start 09/19/24 at 11:30; Stop 09/29/24 at 11:29 Lorazepam 0.5 mg ONCE ONCE IVP Last administered on 09/20/24at 08:30; Start 09/20/24 at 08:30; Stop 09/20/24 at 08:31; Status DC BIANKA CAMPBELL MD Sep 20, 2024 14:16
--- NOTE | 2024-09-20 15:46 | PN ---
INFECTIOUS DISEASE PROGRESS NOTE Date of Service: Sep 20, 2024 SUBJECTIVE: This is a 78 year old male patient who was sent to the emergency room from the residential for abdominal pain and hematuria. On arrival to the ED patient was found with clear urine in the urostomy bag. A CT of the chest showing large left pleural effusion and possible spine metastasis. Chocolate Temperer and oncologist have been consulted. A urinalysis was positive. Patient was seen and examined at bedside in room 325. Patient is awake and alert. Patient s/p left paracentesis by IR day # 1. A bone scan was done today and showed extensive bone metastases worse on the right hip and right femur. Recommending hospice services and per nurse family have agreed. We will have professor of social work evaluate for hospice services with [facility]. We will continue to follow patient's care. No fever, temperature 98 7.9 and a WBC of 13.4. Patient continues on Meropenem 1 g IV every 12. We will continue to follow patient's care. PHYSICAL EXAM EYES: Anicteric. Pupils equal and reactive. HENT: No oral thrush seen, moist Oral mucosa. NECK: Supple, no JVD or thyromegaly. LUNGS: Good air entry. No rales, no rhonchi. CARDIOVASCULAR: S1, S2 regular. No murmur heard. ABDOMEN: Soft, non tender, bowel sounds present, no organomegaly. CENTRAL NERVOUS SYSTEM: Awake, alert, oriented x 1. SKIN: No rashes, no swelling. LYMPHATICS: No peripheral lymphadenopathy. MUSCULOSKELETAL: No joint swelling, erythema or tenderness. EXTREMITIES: No cyanosis or clubbing. Weakness BACK: No deformity, no pressure ulcer. GENITOURINARY: Urostomy, yellow urine. Vital Sign (Last 12 Hours) 09/20/24 09/20/24 09/20/24 08:05 08:18 11:57 Temp 98.2 97.9 Pulse 93 63 Resp 22 19 B/P (MAP) 142/80 119/75 Pulse Ox 97 97 97 O2 Delivery Room Air* O2 Flow Rate 0 FiO2 21 Intake & Output (last 24hrs) 09/19/24 09/19/24 09/20/24 15:00 23:00 07:00 Intake Total 220.0 ml Output Total 600 ml Balance -380.0 ml LABS: Laboratory: Test 09/20/24 05:13 09/19/24 11:00 Range/Units White Blood Count 13.4 H 4.8-10.8 K/uL Red Blood Count 4.74 4.50-6.20 MIL/uL Hemoglobin 13.5 L 14.0-18.0 g/dL Hematocrit 40.9 L 42-54 % Mean Corpuscular Volume 86.3 79-99 fL Mean Corpuscular Hemoglobin 28.5 27.0-33.0 pg Mean Corpuscular Hemoglobin Concent 33.0 32.0-36.0 g/dL Red Cell Distribution Width 13.5 11.0-15.5 % Platelet Count 164 130-400 K/uL Mean Platelet Volume 10.3 7.5-10.5 fL Immature Granulocyte % (Auto) 2.1 H 0-1 % Neutrophils (%) (Auto) 81.0 H 40.0-77.0 % Lymphocytes (%) (Auto) 7.2 L 21.0-51.0 % Monocytes (%) (Auto) 9.2 3.0-13.0 % Eosinophils (%) (Auto) 0.1 0.0-8.0 % Basophils (%) (Auto) 0.4 0.0-5.0 % Neutrophils # (Auto) 10.9 H 1.8-7.7 K/uL Lymphocytes # (Auto) 1.0 1.0-4.8 K/uL Monocytes # (Auto) 1.2 H 0.1-1.0 K/uL Eosinophils # (Auto) 0.01 0.00-0.70 K/uL Basophils # (Auto) 0.05 0.00-0.20 K/uL Absolute Immature Granulocyte (auto 0.28 0-1 K/uL Nucleated Red Blood Cells 0.0 0.0-0.19 % Sodium Level 143 136-145 mmol/L Potassium Level 3.9 3.5-5.1 mmol/L Chloride Level 108 101-111 mmol/L Carbon Dioxide Level 24 21-32 mmol/L Blood Urea Nitrogen 43 H 7-18 mg/dL Creatinine 1.3 0.5-1.3 mg/dL Glomerular Filtration Rate Calc 57 >90 mL/min Random Glucose 92 70-105 mg/dL Total Calcium 11.2 H 8.5-10.1 mg/dL Magnesium Level 2.10 1.80-2.40 mg/dL Total Bilirubin 0.7 0.2-1.0 mg/dL Aspartate Amino Transf (AST/SGOT) 24 10-37 U/L Alanine Aminotransferase (ALT/SGPT) 24 12-78 U/L Alkaline Phosphatase 260 H 50-136 U/L Total Protein 5.9 L 6.0-8.3 g/dL Albumin 2.2 L 3.5-5.0 g/dL Body Fluid Source PLEURAL Body Fluid Volume 800 mL Body Fluid Color YELLOW LT YELLOW Body Fluid Supernatant Appearance SLIGHTLY CLOUDY CLEAR Body Fluid WBC 974 /cu. mm. Body Fluid RBC 3155 /cu. mm. Body Fluid Neutrophils 26.0 % Body Fluid Lymphocytes 47 % Body Fluid Monocytes % 2 % Body Fluid Macrophages (%) 19 Body Fluid Mesothelial Cells (%) 6 % Pleural Fluid pH 7 Pleural Fluid Total Protein 4.1 mg/dL Pleural Fluid LDH 171 U/L Pleural Fluid Glucose 93 ASSESSMENT: Pneumonia. Urinary tract infection with E coli. Infection with multidrug resistant organism. Leukocytosis. Left pleural effusion, s/p left paracentesis by IR with 800 fluid removed. 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 Spine metastasis. Acute renal failure, improving. History of bladder tumor with TURP. PLAN: Discontinue cefepime Start patient on Meropenem. Continue GI prophylaxis. Continue pain management. Provide urostomy care. Oncologist has evaluated patient and following. We will monitor electrolytes. medical office worker consult for hospice referral. This case was reviewed and discussed with my supervising physician and the above assessment and plan was formulated and agreed upon. ATTESTATION BY PHYSICIAN I have seen and examined the patient. I reviewed the documentation, medical decision making, and treatment plan as noted by the mid-level provider above. I agree with the findings and plan of care. ANUP HARGROVE MD, MIRTA L ELECTRICAL TECHNICIAN INSTRUCTOR Sep 20, 2024 15:46
--- NOTE | 2024-09-20 16:54 | NUR ---
[facility] spoke to on phone and she referred me to her son Tomy, who is here in [place] with pt. Son states he jus got news of pt's metastatic cancer. Pt is a [place] and has a home her in [place]. currently in [place] and 2 daughters live out of state. Discussed hospice here and in [place]. Son states he would have to discuss with pt where he wants to spend his final days. Son was an EMT and has contacts and means to get pt to [place] by air ambulance if that is what pt wants. Discussed hiring caregivers if pt chooses to remain in [place]. Son wants to have conversation with pt and he honor pt's wishes. Son to recontact SW after discussion with pt and with family members.
[2024-09-21] VITALS (8 sets, daily range): BP systolic 127–152; BP diastolic 73–90; PULSE 68–98; RESP 16–28; TEMP 97.4–99; O2SAT 95–99
--- NOTE | 2024-09-21 11:59 | HMCIMG ---
CHEST 1VW HISTORY: Postthoracentesis COMPARISON: 09/19/2024 FINDINGS: A frontal projection of the chest was obtained. Left lung pulmonary infiltrates are seen. No gross pneumothorax is seen. The heart is borderline enlarged. All the lines and tubes are again seen in place. No evidence of aortic calcification is seen. IMPRESSION: 1. Left lung pulmonary infiltrates.
--- NOTE | 2024-09-21 12:00 | NUR ---
Patient referred to hospice.
--- NOTE | 2024-09-21 17:12 | PN ---
INFECTIOUS DISEASE PROGRESS NOTE Date of Service: Sep 21, 2024 SUBJECTIVE: This is a 78 year old male patient who was sent to the emergency room from the shelter for abdominal pain and hematuria. On arrival to the ED patient was found with clear urine in the urostomy bag. A CT of the chest showing large left pleural effusion and possible spine metastasis. Parimutuel Ticket Seller and oncologist have been consulted. A urinalysis was positive. Patient was seen and examined at bedside in room 325. Patient is awake and alert. Patient s/p left paracentesis by IR on 09/19/2024. Patient with metastatic bone disease worse on the right hip and right femur. precision layout worker has been consulted and working with family for hospice services. Patient remains afebrile, temperature is 97.9. Will continue on Meropenem for UTI. We will continue to follow patient's care. PHYSICAL EXAM EYES: Anicteric. Pupils equal and reactive. HENT: No oral thrush seen, moist Oral mucosa. NECK: Supple, no JVD or thyromegaly. LUNGS: Good air entry. No rales, no rhonchi. CARDIOVASCULAR: S1, S2 regular. No murmur heard. ABDOMEN: Soft, non tender, bowel sounds present, no organomegaly. CENTRAL NERVOUS SYSTEM: Awake, alert, oriented x 1. SKIN: No rashes, no swelling. LYMPHATICS: No peripheral lymphadenopathy. MUSCULOSKELETAL: No joint swelling, erythema or tenderness. EXTREMITIES: No cyanosis or clubbing. Weakness BACK: No deformity, no pressure ulcer. GENITOURINARY: Urostomy, yellow urine. Vital Sign (Last 12 Hours) 09/21/24 09/21/24 09/21/24 08:00 12:00 16:00 Temp 97.9 99.0 98.8 Pulse 98 71 68 Resp 16 16 17 B/P (MAP) 147/90 127/82 136/73 Pulse Ox 94 95 95 O2 Delivery Room Air Room Air Room Air Intake & Output (last 24hrs) 09/20/24 09/20/24 09/21/24 15:00 23:00 07:00 Intake Total 300 ml Output Total 500 ml Balance -200 ml LABS: Laboratory: Test 09/20/24 05:13 Range/Units White Blood Count 13.4 H 4.8-10.8 K/uL Red Blood Count 4.74 4.50-6.20 MIL/uL Hemoglobin 13.5 L 14.0-18.0 g/dL Hematocrit 40.9 L 42-54 % Mean Corpuscular Volume 86.3 79-99 fL Mean Corpuscular Hemoglobin 28.5 27.0-33.0 pg Mean Corpuscular Hemoglobin Concent 33.0 32.0-36.0 g/dL Red Cell Distribution Width 13.5 11.0-15.5 % Platelet Count 164 130-400 K/uL Mean Platelet Volume 10.3 7.5-10.5 fL Immature Granulocyte % (Auto) 2.1 H 0-1 % Neutrophils (%) (Auto) 81.0 H 40.0-77.0 % Lymphocytes (%) (Auto) 7.2 L 21.0-51.0 % Monocytes (%) (Auto) 9.2 3.0-13.0 % Eosinophils (%) (Auto) 0.1 0.0-8.0 % Basophils (%) (Auto) 0.4 0.0-5.0 % Neutrophils # (Auto) 10.9 H 1.8-7.7 K/uL Lymphocytes # (Auto) 1.0 1.0-4.8 K/uL Monocytes # (Auto) 1.2 H 0.1-1.0 K/uL Eosinophils # (Auto) 0.01 0.00-0.70 K/uL Basophils # (Auto) 0.05 0.00-0.20 K/uL Absolute Immature Granulocyte (auto 0.28 0-1 K/uL Nucleated Red Blood Cells 0.0 0.0-0.19 % Sodium Level 143 136-145 mmol/L Potassium Level 3.9 3.5-5.1 mmol/L Chloride Level 108 101-111 mmol/L Carbon Dioxide Level 24 21-32 mmol/L Blood Urea Nitrogen 43 H 7-18 mg/dL Creatinine 1.3 0.5-1.3 mg/dL Glomerular Filtration Rate Calc 57 >90 mL/min Random Glucose 92 70-105 mg/dL Total Calcium 11.2 H 8.5-10.1 mg/dL Magnesium Level 2.10 1.80-2.40 mg/dL Total Bilirubin 0.7 0.2-1.0 mg/dL Aspartate Amino Transf (AST/SGOT) 24 10-37 U/L Alanine Aminotransferase (ALT/SGPT) 24 12-78 U/L Alkaline Phosphatase 260 H 50-136 U/L Total Protein 5.9 L 6.0-8.3 g/dL Albumin 2.2 L 3.5-5.0 g/dL ASSESSMENT: Pneumonia. Urinary tract infection with ESBL, E coli. Leukocytosis. Left pleural effusion, s/p left paracentesis by IR with 800 fluid removed. 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 Spine metastasis. Acute renal failure, improving. History of bladder tumor with TURP. PLAN: Continue on Meropenem. Continue GI prophylaxis. Continue pain management. Provide urostomy care. Oncologist has evaluated patient and following. We will monitor electrolytes. precision layout worker has been consulted and working on hospice arrangements. This case was reviewed and discussed with my supervising physician and the above assessment and plan was formulated and agreed upon. ATTESTATION BY PHYSICIAN I have seen and examined the patient. I reviewed the documentation, medical decision making, and treatment plan as noted by the mid-level provider above. I agree with the findings and plan of care. ANUP HARGROVE MD, MIRTA L HOBBING PRESS OPERATOR Sep 21, 2024 17:12
[2024-09-21] MEDS: PHARMACY COMMUNICATION MISC SCH (19:30)
[2024-09-21] MEDS: PAMIDRONATE DISODIUM 90MG VIAL 90 MG in 0.9%NACL 1000ML 1,000 ML IV ONE (20:25)
--- NOTE | 2024-09-21 23:16 | PN ---
[facility] PROGRESS NOTE Date Patient Seen: Sep 21, 2024 Time of Visit: 13:12 Supervising Physician: DR. CORDELL RICH Primary Care Physician: [Dr. Macias] Outpatient Specialists: [ ] Inpatient Consults: [BIS] PROBLEM LIST: Suspected hospital acquired pneumonia, POA Acute complicated cystitis T-11 Blastic Lesion - suspicious for malignancy Acute renal failure POA-resolved Hypertension Obesity Hematuria, improved Left pleural effusion - status post left thoracentesis by IR -800 mL output Plan Summary: Continue antibiotics per Infectious Disease Supplemental oxygen as needed Continue diuretics Follow oncology recommendation INTERVAL HISTORY: [Patient is evaluated at bedside. He was a very poor historian but does admit a history of spinal cancer. Can not recall whether it originated in his spine or metastasized to his spine. He was also unable to recall any details regarding treatment or how long ago he was diagnosed. He was unable to recall the name of his oncologist. His urine culture is positive for 100 K CFUs, continued on cefepime and doxycycline. Labs are unremarkable, unchanged from previous. Procalcitonin is negative at 0.13, BNP is 89, lactic acid improved to 2.1. Patient did have some hemoptysis this morning which is more of blood-tinged sputum. Given his history of renal cancer, history of spinal cancer and T11 blastic focus on CT, this patient may have a malignant pleural effusion. Will order thoracentesis to evaluate for the same. He is pending a NM bone scan per oncology.] 09/19 patient is evaluated at bedside. He is resting but easily arousable. Unable to participate in history taking due to dementia. He is pending a thoracentesis today, we will evaluate cytology for suspected malignant pleural effusion. Echocardiogram shows no pericardial effusion per report. Patient also pending a nuclear medicine bone scan per Oncology. We will follow up with studies and further recommendations. 09/20 - patient is laying in bed resting quietly with no signs of acute distress. Patient continues with altered mental status secondary to advanced dementia. Patient is scheduled for a nuclear medicine bone scan this morning. Patient underwent a left thoracentesis by IR yesterday afternoon was 800 mL output. No postprocedure x-ray was obtained. We will follow. Patient remains on room air with no signs of respiratory distress. Vital Signs are stable. 09/21 Patient is a 78 year old gentleman, asleep, no fever, chills, no nausea or vomiting on adequate pain control management. Follow up on cytology results obtain medical records from hospital visit. REVIEW OF SYSTEMS: 12 point ROS reviewed with patient. Pertinent positives mentioned above. Otherwise negative. PHYSICAL EXAM: GENERAL: alert, weak, awake oriented x 3 HEENT: EOMI, Sclera non icteric, moist mucosa NECK: Supple, no JVD, trachea midline LUNGS: Clear breath sounds bilaterally. No wheezes HEART: Regular rate and rhythm. Normal S1 and S2, without murmurs ABD: Abdomen soft, nontender. Bowel sounds present EXT: No clubbing cyanosis or edema NEURO: Alert and oriented to person, follows commands Vital Signs (last 8hr) Date Time Temp Pulse Resp B/P (MAP) Pulse Ox O2 Delivery O2 Flow Rate FiO2 09/21/24 20:00 95 Room Air* 0 21 09/21/24 16:00 98.8 68 17 136/73 95 Room Air LABS: Hematology Labs: Test 09/20/24 05:13 Range/Units White Blood Count 13.4 H 4.8-10.8 K/uL Red Blood Count 4.74 4.50-6.20 MIL/uL Hemoglobin 13.5 L 14.0-18.0 g/dL Hematocrit 40.9 L 42-54 % Mean Corpuscular Volume 86.3 79-99 fL Mean Corpuscular Hemoglobin 28.5 27.0-33.0 pg Mean Corpuscular Hemoglobin Concent 33.0 32.0-36.0 g/dL Red Cell Distribution Width 13.5 11.0-15.5 % Platelet Count 164 130-400 K/uL Mean Platelet Volume 10.3 7.5-10.5 fL Immature Granulocyte % (Auto) 2.1 H 0-1 % Neutrophils (%) (Auto) 81.0 H 40.0-77.0 % Lymphocytes (%) (Auto) 7.2 L 21.0-51.0 % Monocytes (%) (Auto) 9.2 3.0-13.0 % Eosinophils (%) (Auto) 0.1 0.0-8.0 % Basophils (%) (Auto) 0.4 0.0-5.0 % Neutrophils # (Auto) 10.9 H 1.8-7.7 K/uL Lymphocytes # (Auto) 1.0 1.0-4.8 K/uL Monocytes # (Auto) 1.2 H 0.1-1.0 K/uL Eosinophils # (Auto) 0.01 0.00-0.70 K/uL Basophils # (Auto) 0.05 0.00-0.20 K/uL Absolute Immature Granulocyte (auto 0.28 0-1 K/uL Nucleated Red Blood Cells 0.0 0.0-0.19 % Chemistry Labs: Test 09/20/24 05:13 Range/Units Sodium Level 143 136-145 mmol/L Potassium Level 3.9 3.5-5.1 mmol/L Chloride Level 108 101-111 mmol/L Carbon Dioxide Level 24 21-32 mmol/L Blood Urea Nitrogen 43 H 7-18 mg/dL Creatinine 1.3 0.5-1.3 mg/dL Glomerular Filtration Rate Calc 57 >90 mL/min Random Glucose 92 70-105 mg/dL Total Calcium 11.2 H 8.5-10.1 mg/dL Magnesium Level 2.10 1.80-2.40 mg/dL Total Bilirubin 0.7 0.2-1.0 mg/dL Aspartate Amino Transf (AST/SGOT) 24 10-37 U/L Alanine Aminotransferase (ALT/SGPT) 24 12-78 U/L Alkaline Phosphatase 260 H 50-136 U/L Total Protein 5.9 L 6.0-8.3 g/dL Albumin 2.2 L 3.5-5.0 g/dL DIAGNOSTICS / RADIOLOGY RESULTS: [ ] PLAN NEURO: Minimize central acting medications as possible. Maintain fall precautions, adequate lighting during the day PULMONARY: Supplemental 02 as needed. Maintain aspiration precautions at all times CARDIOVASCULAR: Follow hemodynamics. Vital signs per facility protocol GI & NUTRITION: Continue with nutritional support. Continue stool softeners and laxatives as needed. KIDNEYS & ELECTROLYTES: Strict monitoring of intake, output and overall fluid balance. Avoid nephrotoxic medications to the extent possible. Medications to be dosed according to renal function. Monitor electrolytes and replace as needed ENDOCRINE: Maintain blood glucose between 100-180 at all times. Hypoglycemia protocol in place INFECTIOUS DISEASE: Trend temperature, WBC and procalcitonin level Follow cultures, deescalate antibiotics as soon as possible. Panculture if new onset fever ONCOLOGY/HEMATOLOGY/COAGULATION: Monitor for s/s of bleeding Monitor hemoglobin, coagulation studies as needed SKIN: Pressure ulcer prevention per facility protocol Specialty mattress ORTHO/REHAB: Continue PT/OT Prophylaxis: Continue GI and DVT prophylaxis Code Status: Full Resuscitation Disposition: As per attending. ATTESTATION BY PHYSICIAN Documentation assistance provided by a scribe, information recorded by the scribe was done at my direction and has been reviewed and validated by me." CORDELL MAGUIRE MD I personally scribed for CORDELL MAGUIRE MD ([email or web address]) on 09/21/24 at 23:16. Electronically submitted by Nubia Contreras ([email or web address]). CORDELL MAGUIRE MD Sep 21, 2024 23:16
--- NOTE | 2024-09-21 23:19 | PN ---
This is a 78-year-old male with history of BPH, hypertension, who presented to the hospital with abdominal pain and hematuria. Pain localized to the flank. No fever, no chills. Upon arrival in the Emergency Room, the patient found with clear urine in the urostomy bag. The patient had CT of the abdomen was one, which shows large pleural effusion and pneumonia. The patient was transferred from retirement. No documented fever. He denies rashes or itchiness. Patient CT scan showed T11 blastic lesion suspicious for metastatic disease to the bone. Bone scan was done which showed extensive disease all over the body. PSA was normal. This patient have metastatic disease to the bone with the patient have stage IV. Patient had left thoracentesis with removal of 800 cc. There is nobody around the patient with the patient is alert but not fully oriented PHYSICAL EXAMINATION: GENERAL: Elderly male, awake. VITAL SIGNS: Temperature 98.4, pulse 64, respiratory rate 18, BP 151/80. EYES: No icterus. Pupils equal and reactive. HENT: No oral lesions seen. Moist oral mucosa. NECK: Supple. No JVD or thyromegaly. LUNGS: Good air entry. No rales, no rhonchi. CARDIOVASCULAR: S1, S2 regular. No murmur heard. ABDOMEN: Soft. Bowel sound is present. Urostomy on the right side functioning well. CENTRAL NERVOUS SYSTEM: Awake, alert, Not oriented. No focal deficits. SKIN: No rashes, no itchiness. LYMPHATIC: No peripheral lymphadenopathy. BACK: No deformity, no pressure ulcer. HEMATOLOGIC: No bleeding or petechial lesions seen. MUSCULOSKELETAL: No joint swelling, erythema, or tenderness. VASCULAR: No ischemia or gangrene of extremities. ASSESSMENT: 1. Metastatic disease to the bone by bone scan. T12 blastic lesions suspicious for malignancy. There was a plan for bone scan to be done but could not be done. There is plan to do it tomorrow. 2. Left pleural effusion Status post thoracentesis with 1800 cc removed 4. Enlargement of the prostate 4. Mild anemia 5. Spinal stenosis 6. Hypertension 7. Severe pain 8. Pneumonia 9. Acute on chronic renal failure 10. Hematuria 11. Change mental status Plan 1. Bone scan showing disease all over the bone consistent with stage IV metastatic disease to the bone. There was nobody around the patient. It seems maybe this patient have a history of kidney cancer in the past. This patient will need CT scan chest abdomen pelvis with IV contrast if possible 2. It seems the patient is anxious. Will give him Ativan 0.5 mg IV before procedure done. 3. Patient with severe pain to the lower back with the pain is musculoskeletal. This patient to receive Toradol 15 mg every 8 hours as needed 4. PSA level was normal. So this patient most likely have metastatic disease from different origin. 5. We need more information about this patient especially possibility of history of bladder tumor. We need to know where this patient is seen and if there is any pathology. 6. It seems the family they want actually to do comfort care and hospice. 7. This patient could benefit from Aredia 90 mg IV for one-time 8. If the family does not want hospice then this patient may be need to see him by orthopedic with possibility of fixing his right femur and may be getting biopsy for us from the bone. Vitals/Labs Vital Signs Date Time Temp Pulse Resp B/P (MAP) Pulse Ox O2 Delivery O2 Flow Rate FiO2 09/21/24 20:00 95 Room Air* 0 21 09/21/24 16:00 98.8 68 17 136/73 Medications Current Medications Ceftriaxone Sodium 1 gm ONCE ONCE IVPB; Start 09/16/24 at 16:00; Stop 09/16/24 at 16:43; Status DC Sodium Chloride 1,000 ml @ 500 mls/hr Q2H IV Last administered on 09/17/24at 00:09; Start 09/16/24 at 16:00; Stop 09/17/24 at 11:47; Status DC Azithromycin 250 ml @ 250 mls/hr Q24H IVPB; Start 09/16/24 at 16:00; Stop 09/16/24 at 16:43; Status DC Cefepime HCl 1 gm Q8H IVPB Last administered on 09/17/24at 11:43; Start 09/16/24 at 16:30; Stop 09/17/24 at 13:53; Status DC Doxycycline Hyclate 100 mg BID PO Last administered on 09/19/24at 09:09; Start 09/16/24 at 21:00; Stop 09/19/24 at 09:53; Status DC Acetaminophen 650 mg Q4H PRN PO; Start 09/16/24 at 16:30; Stop 10/16/24 at 16:29 Ondansetron HCl 4 mg Q6H PRN PO; Start 09/16/24 at 16:30; Stop 10/16/24 at 16:29 Morphine Sulfate 2 mg Q6H6 PRN IVP Last administered on 09/20/24at 20:40; Start 09/16/24 at 17:00; Stop 09/21/24 at 20:01; Status DC Tramadol HCl 50 mg Q6H PRN PO Last administered on 09/18/24at 02:49; Start 09/17/24 at 14:00; Stop 09/18/24 at 10:12; Status DC Cefepime HCl 1 gm Q12H IVPB Last administered on 09/19/24at 00:15; Start 09/18/24 at 00:00; Stop 09/19/24 at 09:53; Status DC Clonidine HCl 0.1 mg AD PRN PO; Start 09/17/24 at 15:00; Stop 09/17/24 at 14:48; Status DC Docusate Sodium 100 mg BID PO Last administered on 09/21/24at 20:25; Start 09/17/24 at 21:00; Stop 10/17/24 at 20:59 Gabapentin 100 mg TID PO Last administered on 09/21/24at 20:25; Start 09/17/24 at 21:00; Stop 10/17/24 at 20:59 Guaifenesin 200 mg QID PO Last administered on 09/21/24at 14:44; Start 09/17/24 at 17:00; Stop 10/17/24 at 16:59 Pantoprazole Sodium 40 mg DAILY PO Last administered on 09/21/24at 09:49; Start 09/18/24 at 09:00; Stop 10/18/24 at 08:59 Polyethylene Glycol 17 gm DAILY PO Last administered on 09/21/24at 09:57; Start 09/18/24 at 09:00; Stop 10/18/24 at 08:59 Propranolol HCl 10 mg DAILY PO Last administered on 09/21/24at 09:49; Start 09/18/24 at 09:00; Stop 10/18/24 at 08:59 Tamsulosin HCl 0.4 mg DAILYBKFST PO Last administered on 09/21/24at 10:07; Start 09/18/24 at 08:00; Stop 10/18/24 at 07:59 Miscellaneous Medication 1 drop Q4PRN OP; Start 09/17/24 at 15:00; Stop 09/17/24 at 14:49; Status DC Home Med (Dutasteride 0.5 MG) DAILY PO; Start 09/18/24 at 09:00; Stop 10/18/24 at 08:59 Home Med (L.acidoph & Paracasei,B.lactis (Probiotic... DAILY PO; Start 09/18/24 at 09:00; Stop 10/18/24 at 08:59 Lactulose 20 gm DAILY PO Last administered on 09/21/24at 09:46; Start 09/18/24 at 09:00; Stop 10/18/24 at 08:59 Home Med (Melatonin 1 CAP) HS PO; Start 09/17/24 at 21:00; Stop 10/17/24 at 20:59 Multivitamins Therapeutic 1 tab DAILY PO Last administered on 09/21/24at 09:49; Start 09/18/24 at 09:00; Stop 10/18/24 at 08:59 Miscellaneous Medication 5 mg DAILY PO; Start 09/18/24 at 09:00; Stop 09/17/24 at 14:55; Status DC Home Med (Zinc Sulfate (Zinc)... DAILY PO; Start 09/18/24 at 09:00; Stop 10/18/24 at 08:59 Home Med ([Vitamin D3] 2,000 UNITS) DAILY PO; Start 09/18/24 at 09:00; Stop 10/18/24 at 08:59 Magnesium Sulfate 50 ml @ 0 mls/hr PROTOCOL PRN IV Last administered on 09/19/24at 07:19; Start 09/17/24 at 17:30; Stop 10/17/24 at 17:29 Furosemide 20 mg DAILY PO Last administered on 09/21/24at 09:49; Start 09/18/24 at 09:00; Stop 10/18/24 at 08:59 Ketorolac Tromethamine 15 mg Q6H PRN IV Last administered on 09/21/24at 10:08; Start 09/18/24 at 13:30; Stop 09/23/24 at 13:29 Lorazepam 0.5 mg ONCE ONCE IVP; Start 09/18/24 at 17:30; Stop 09/18/24 at 17:31; Status DC Meropenem 1 gm Q12H IV Last administered on 09/21/24at 11:59; Start 09/19/24 at 11:30; Stop 09/29/24 at 11:29 Lorazepam 0.5 mg ONCE ONCE IVP Last administered on 09/20/24at 08:30; Start 09/20/24 at 08:30; Stop 09/20/24 at 08:31; Status DC Pharmacy Profile Note 1 each ONCE MISC; Start 09/21/24 at 19:30; Stop 09/28/24 at 19:29 Pamidronate Disodium 90 mg/ Sodium Chloride 1,000 ml @ 250 mls/hr ONCE ONCE IV Last administered on 09/21/24at 20:25; Start 09/21/24 at 20:30; Stop 09/22/24 at 00:29 BIANKA CAMPBELL MD Sep 21, 2024 23:19
[2024-09-22] VITALS (7 sets, daily range): BP systolic 125–154; BP diastolic 61–82; PULSE 67–98; RESP 16–24; TEMP 97.7–99.8; O2SAT 95–99
--- NOTE | 2024-09-22 10:30 | NUR ---
SS FOLOW UP No family at bedside. Sw left message for son Tomy regarding decision on arrangements. Waiting for call back
--- NOTE | 2024-09-22 10:36 | PN ---
[facility] PROGRESS NOTE Date Patient Seen: Sep 22, 2024 Time of Visit: 10:32 Supervising Physician: Dr Moyer Primary Care Physician: [Dr. Macias] Outpatient Specialists: [ ] Inpatient Consults: [[facility]] Dr. 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 He was a very poor historian but does admit a history of spinal cancer. Can not recall whether it originated in his spine or metastasized to his spine. He was also unable to recall any details regarding treatment or how long ago he was diagnosed. He was unable to recall the name of his oncologist. His urine culture is positive for 100 K CFUs, continued on cefepime and doxycycline. Labs are unremarkable, unchanged from previous. Procalcitonin is negative at 0.13, BNP is 89, lactic acid improved to 2.1. Patient did have some hemoptysis this morning which is more of blood-tinged sputum. Given his history of renal cancer, history of spinal cancer and T11 blastic focus on CT, this patient may have a malignant pleural effusion. Will order thoracentesis to evaluate for the same. He is pending a NM bone scan per oncology.] 09/19 patient is evaluated at bedside. He is resting but easily arousable. Unable to participate in history taking due to dementia. He is pending a thoracentesis today, we will evaluate cytology for suspected malignant pleural effusion. Echocardiogram shows no pericardial effusion per report. Patient also pending a nuclear medicine bone scan per Oncology. We will follow up with studies and further recommendations. 09/20 - patient is laying in bed resting quietly with no signs of acute distress. Patient continues with altered mental status secondary to advanced dementia. Patient is scheduled for a nuclear medicine bone scan this morning. Patient underwent a left thoracentesis by IR yesterday afternoon was 800 mL output. No postprocedure x-ray was obtained. We will follow. Patient remains on room air with no signs of respiratory distress. Vital Signs are stable. 09/21 Patient is a 78 year old gentleman, asleep, no fever, chills, no nausea or vomiting on adequate pain control management. Follow up on cytology results obtain medical records from hospital visit. 09/22 - patient is seen and evaluated at the bedside. Patient is sitting up bed continues to be weak, debilitated, deconditioned. Patient continues with AMS due to advanced dementia. Patient had a nuclear medicine bone scan performed which shows extensive bone metastasis worse in the right hip and right femur. As per nursing, patient has agreed to move forward with hospice services. Prognosis remains guarded. REVIEW OF SYSTEMS: 12 point ROS reviewed with patient. Pertinent positives mentioned above. Otherwise negative. PHYSICAL EXAM: GENERAL: alert, weak, awake oriented x 2 HEENT: EOMI, Sclera non icteric, moist mucosa NECK: Supple, no JVD, trachea midline LUNGS: Clear breath sounds bilaterally. No wheezes HEART: Regular rate and rhythm. Normal S1 and S2, without murmurs ABD: Abdomen soft, nontender. Bowel sounds present EXT: No clubbing cyanosis or edema NEURO: Alert and oriented to person, follows commands Vital Signs (last 8hr) Date Time Temp Pulse Resp B/P (MAP) Pulse Ox O2 Delivery O2 Flow Rate FiO2 09/22/24 08:26 98.4 74 18 128/61 95 Room Air 09/22/24 04:00 98.1 67 24 145/78 97 Room Air LABS: DIAGNOSTICS / RADIOLOGY RESULTS: PATIENT: ANGEL KAUR MR#: [id number] : 1945 SEX: M AGE: 78 LOCATION: [facility] ORDER 1124 STATUS: ADM IN REPORT#: [id number] SERVICE 0600 REASON: Metastatic bone lesion ORDERING PHYSICIAN: BIANKA CAMPBELL MD PROCEDURE: BONE WBD - NM BONE SCAN WHOLE BODY NM BONE SCAN WHOLE BODY REASON: Metastatic bone lesion. COMPARISON: None TECHNIQUE: Total body bone imaging were performed with 24 mCi of technetium MDP through intravenous route. FINDINGS: Extensive increase activities are noted involving bilateral ribs, hips, lower extremity, spine and skull as visible metastases. This is worse in the right hip and right femur. IMPRESSION: Extensive bone metastases worse in the right hip and right femur. DICTATED BY: MARJORIE LUI MD DATE: 09/20/24 1139 ELECTRONICALLY SIGNED BY: MARJORIE LUI MD DATE: 09/20/24 1145 PLAN NEURO: Minimize central acting medications as possible. Maintain fall precautions, adequate lighting during the day PULMONARY: Supplemental 02 as needed. Maintain aspiration precautions at all times CARDIOVASCULAR: Follow hemodynamics. Vital signs per facility protocol GI & NUTRITION: Continue with nutritional support. Continue stool softeners and laxatives as needed. KIDNEYS & ELECTROLYTES: Strict monitoring of intake, output and overall fluid balance. Avoid nephrotoxic medications to the extent possible. Medications to be dosed according to renal function. Monitor electrolytes and replace as needed ENDOCRINE: Maintain blood glucose between 100-180 at all times. Hypoglycemia protocol in place INFECTIOUS DISEASE: Trend temperature, WBC and procalcitonin level Follow cultures, deescalate antibiotics as soon as possible. Panculture if new onset fever ONCOLOGY/HEMATOLOGY/COAGULATION: Monitor for s/s of bleeding Monitor hemoglobin, coagulation studies as needed SKIN: Pressure ulcer prevention per facility protocol Specialty mattress ORTHO/REHAB: Continue PT/OT Prophylaxis: Continue GI and DVT prophylaxis Code Status: Full Resuscitation Prognosis remains guarded Recommend hospice Disposition: As per attending. ATTESTATION BY PHYSICIAN I attest that I reviewed and discussed the case with the Physician Squaring Shear Operator as well as agree with the Physician Squaring Shear Operator's findings, plans of care, and documentation above. Daron Berry MD, ECTOR N NP Sep 22, 2024 10:36
--- NOTE | 2024-09-22 19:56 | PN ---
INFECTIOUS DISEASE PROGRESS NOTE Date of Service: Sep 22, 2024 SUBJECTIVE: This is a 78 year old male patient who was sent to the emergency room from the halfway for abdominal pain and hematuria. On arrival to the ED patient was found with clear urine in the urostomy bag. A CT of the chest showing large left pleural effusion and possible spine metastasis. Inside Sales Supervisor and oncologist have been consulted. A urinalysis was positive. Patient was seen and examined at bedside in room 325. Patient is awake and alert. Patient s/p left paracentesis by IR on 09/19/2024. Patient with metastatic bone disease worse on the right hip and right femur. Patient is still pending decision on hospice services. No nausea or vomiting and continues with poor appetite. No fever this morning, temperature is 98.4. Good urine output has been reported on the urostomy bag. We will obtain lab works in a.m to follow up on the WBC. PHYSICAL EXAM EYES: Anicteric. Pupils equal and reactive. HENT: No oral thrush seen, moist Oral mucosa. NECK: Supple, no JVD or thyromegaly. LUNGS: Good air entry. No rales, no rhonchi. CARDIOVASCULAR: S1, S2 regular. No murmur heard. ABDOMEN: Soft, non tender, bowel sounds present, no organomegaly. CENTRAL NERVOUS SYSTEM: Awake, alert, oriented x 1. SKIN: No rashes, no swelling. LYMPHATICS: No peripheral lymphadenopathy. MUSCULOSKELETAL: No joint swelling, erythema or tenderness. EXTREMITIES: No cyanosis or clubbing. Weakness BACK: No deformity, no pressure ulcer. GENITOURINARY: Urostomy. Vital Sign (Last 12 Hours) 09/22/24 09/22/24 09/22/24 09/22/24 08:00 08:26 12:19 16:00 Temp 98.4 97.7 98.2 Pulse 74 98 71 Resp 18 17 19 B/P (MAP) 128/61 154/82 125/73 Pulse Ox 95 95 97 97 O2 Delivery Room Air* Room Air Room Air Nasal Cannula O2 Flow Rate 0 1.5 FiO2 21 Intake & Output (last 24hrs) 09/21/24 09/21/24 09/22/24 15:00 23:00 07:00 Intake Total 240 ml Output Total 400 ml 500 ml Balance -160 ml -500 ml LABS: ASSESSMENT: Pneumonia. Urinary tract infection with E coli. Infection with multidrug resistant organism. Leukocytosis. Left pleural effusion, s/p left paracentesis by IR with 800 fluid removed on 09/19/2024. 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 Spine metastasis. Acute renal failure. History of bladder tumor with TURP. PLAN: Continue on Meropenem. Continue GI prophylaxis. Continue pain management. Provide urostomy care. Oncologist has evaluated patient and following. We will monitor electrolytes. scaffold worker arranging hospice services with family. This case was reviewed and discussed with my supervising physician and the above assessment and plan was formulated and agreed upon. ATTESTATION BY PHYSICIAN I have seen and examined the patient. I reviewed the documentation, medical decision making, and treatment plan as noted by the mid-level provider above. I agree with the findings and plan of care. ANUP HARGROVE MD, MIRTA L [employer] AX DEVELOPER Sep 22, 2024 19:55
[2024-09-23] VITALS (8 sets, daily range): BP systolic 121–138; BP diastolic 62–87; PULSE 67–85; RESP 16–22; TEMP 97.8–98.9; O2SAT 96–97
--- NOTE | 2024-09-23 04:54 | NUR ---
UROSTOMY BAG CHANGED AT THIS TIME.
[2024-09-23 05:33] LABS: BASOPHILS # (AUTO) 0.04 K/uL (0.00-0.20); BASOPHILS % (AUTO) 0.3 % (0.0-5.0); EOSINOPHILS # (AUTO) 0.06 K/uL (0.00-0.70); EOSINOPHILS % (AUTO) 0.5 % (0.0-8.0); HEMATOCRIT 40.9 % (42-54); LYMPHOCYTES # (AUTO) 0.8 K/uL (1.0-4.8); MEAN CORPUSCULAR HEMOGLOBIN 27.8 pg (27.0-33.0); MEAN CORPUSCULAR HGB CONC 32.3 g/dL (32.0-36.0); MEAN CORPUSCULAR VOLUME 86.3 fL (79-99); MONOCYTES # (AUTO) 1.1 K/uL (0.1-1.0); MONOCYTES % (AUTO) 8.8 % (3.0-13.0); NEUTROPHILS # (AUTO) 10.3 K/uL (1.8-7.7); PLATELET COUNT (AUTO) 156 K/uL (130-400); RED BLOOD CELL COUNT(AUTO) 4.74 MIL/uL (4.50-6.20); RED CELL DISTRIBUTION WIDTH 13.6 % (11.0-15.5); WHITE BLOOD COUNT (AUTO) 12.6 K/uL (4.8-10.8)
[2024-09-23 06:07] LABS: ALBUMIN 2.1 g/dL (3.5-5.0); BILIRUBIN,TOTAL 0.7 mg/dL (0.2-1.0); CREATININE 1.1 mg/dL (0.5-1.3); POTASSIUM 4.1 mmol/L (3.5-5.1); TOTAL PROTEIN, SERUM 5.6 g/dL (6.0-8.3)
--- NOTE | 2024-09-23 08:37 | NUR ---
CALLED PHARMACY TO NOTIFY THEM I DO HAVE HAVE A WORKING WOW AND ARE NOT ABLE TO SCAN PATIENT MEDICATIONS. SPOKE WITH BETI. SHE STATED SHE WILL PRINT PAPER E-MAR. NOTIFY MR. RAE, CLINICAL POLITICAL SCIENCE FACULTY MEMBER FOR 3RD FLOOR.
--- NOTE | 2024-09-23 10:15 | NUR ---
SS FOLLOW UP Sw spoke to , who states she is coming home tonight. Should be a hospital tomorrow. Attempted to discuss options for placement if home is not option to . seems very overwhelmed with news of metastatic cancer, and could not stay on topic. Told her I would speak to son Tomy. Sw spoke to son Tomy. Informed of options of [facility] NH at private pay, and house homes, but they are not in [place]. Son to arrive at hospital this am and review vendor list and start making calls. He will discuss with mother when she arrives
--- NOTE | 2024-09-23 10:36 | PN ---
[facility] PROGRESS NOTE Date Patient Seen: Sep 23, 2024 Time of Visit: 10:29 Supervising Physician: Dr Wanda Arthur Primary Care Physician: [Dr. Macias] Outpatient Specialists: [ ] Inpatient Consults: [[facility]] Dr. 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 He was a very poor historian but does admit a history of spinal cancer. Can not recall whether it originated in his spine or metastasized to his spine. He was also unable to recall any details regarding treatment or how long ago he was diagnosed. He was unable to recall the name of his oncologist. His urine culture is positive for 100 K CFUs, continued on cefepime and doxycycline. Labs are unremarkable, unchanged from previous. Procalcitonin is negative at 0.13, BNP is 89, lactic acid improved to 2.1. Patient did have some hemoptysis this morning which is more of blood-tinged sputum. Given his history of renal cancer, history of spinal cancer and T11 blastic focus on CT, this patient may have a malignant pleural effusion. Will order thoracentesis to evaluate for the same. He is pending a NM bone scan per oncology.] 09/19 patient is evaluated at bedside. He is resting but easily arousable. Unable to participate in history taking due to dementia. He is pending a thoracentesis today, we will evaluate cytology for suspected malignant pleural effusion. Echocardiogram shows no pericardial effusion per report. Patient also pending a nuclear medicine bone scan per Oncology. We will follow up with studies and further recommendations. 09/20 - patient is laying in bed resting quietly with no signs of acute distress. Patient continues with altered mental status secondary to advanced dementia. Patient is scheduled for a nuclear medicine bone scan this morning. Patient underwent a left thoracentesis by IR yesterday afternoon was 800 mL output. No postprocedure x-ray was obtained. We will follow. Patient remains on room air with no signs of respiratory distress. Vital Signs are stable. 09/21 Patient is a 78 year old gentleman, asleep, no fever, chills, no nausea or vomiting on adequate pain control management. Follow up on cytology results obtain medical records from hospital visit. 09/22 - patient is seen and evaluated at the bedside. Patient is sitting up bed continues to be weak, debilitated, deconditioned. Patient continues with AMS due to advanced dementia. Patient had a nuclear medicine bone scan performed which shows extensive bone metastasis worse in the right hip and right femur. As per nursing, patient has agreed to move forward with hospice services. Prognosis remains guarded. 09/23 - patient is seen sitting up in chair continues to be very weak, debilitated, deconditioned and hypoxemic on2 L via nasal cannula. Patient continues on IV antibiotics for ESBL E coli cystitis. As well as pneumonia. As per nursing, family has agreed to move forward with hospice services. REVIEW OF SYSTEMS: 12 point ROS reviewed with patient. Pertinent positives mentioned above. Otherwise negative. PHYSICAL EXAM: GENERAL: alert, weak, awake oriented x 2 HEENT: EOMI, Sclera non icteric, moist mucosa NECK: Supple, no JVD, trachea midline LUNGS: Clear breath sounds bilaterally. No wheezes HEART: Regular rate and rhythm. Normal S1 and S2, without murmurs ABD: Abdomen soft, nontender. Bowel sounds present EXT: No clubbing cyanosis or edema NEURO: Alert and oriented to person, follows commands Vital Signs (last 8hr) Date Time Temp Pulse Resp B/P (MAP) Pulse Ox O2 Delivery O2 Flow Rate FiO2 09/23/24 08:20 99.0 72 20 138/87 97 09/23/24 04:00 98.8 71 16 136/74 96 Nasal Cannula 3.0 LABS: Hematology Labs: Test 09/23/24 05:22 Range/Units White Blood Count 12.6 H 4.8-10.8 K/uL Red Blood Count 4.74 4.50-6.20 MIL/uL Hemoglobin 13.2 L 14.0-18.0 g/dL Hematocrit 40.9 L 42-54 % Mean Corpuscular Volume 86.3 79-99 fL Mean Corpuscular Hemoglobin 27.8 27.0-33.0 pg Mean Corpuscular Hemoglobin Concent 32.3 32.0-36.0 g/dL Red Cell Distribution Width 13.6 11.0-15.5 % Platelet Count 156 130-400 K/uL Mean Platelet Volume 10.2 7.5-10.5 fL Immature Granulocyte % (Auto) 2.4 H 0-1 % Neutrophils (%) (Auto) 82.0 H 40.0-77.0 % Lymphocytes (%) (Auto) 6.0 L 21.0-51.0 % Monocytes (%) (Auto) 8.8 3.0-13.0 % Eosinophils (%) (Auto) 0.5 0.0-8.0 % Basophils (%) (Auto) 0.3 0.0-5.0 % Neutrophils # (Auto) 10.3 H 1.8-7.7 K/uL Lymphocytes # (Auto) 0.8 L 1.0-4.8 K/uL Monocytes # (Auto) 1.1 H 0.1-1.0 K/uL Eosinophils # (Auto) 0.06 0.00-0.70 K/uL Basophils # (Auto) 0.04 0.00-0.20 K/uL Absolute Immature Granulocyte (auto 0.30 0-1 K/uL Nucleated Red Blood Cells 0.0 0.0-0.19 % Chemistry Labs: Test 09/23/24 05:22 Range/Units Sodium Level 142 136-145 mmol/L Potassium Level 4.1 3.5-5.1 mmol/L Chloride Level 108 101-111 mmol/L Carbon Dioxide Level 24 21-32 mmol/L Blood Urea Nitrogen 46 H 7-18 mg/dL Creatinine 1.1 0.5-1.3 mg/dL Glomerular Filtration Rate Calc 69 >90 mL/min Random Glucose 96 70-105 mg/dL Total Calcium 10.7 H 8.5-10.1 mg/dL Magnesium Level 2.00 1.80-2.40 mg/dL Total Bilirubin 0.7 0.2-1.0 mg/dL Aspartate Amino Transf (AST/SGOT) 49 H 10-37 U/L Alanine Aminotransferase (ALT/SGPT) 39 12-78 U/L Alkaline Phosphatase 438 H 50-136 U/L Total Protein 5.6 L 6.0-8.3 g/dL Albumin 2.1 L 3.5-5.0 g/dL DIAGNOSTICS / RADIOLOGY RESULTS: [ ] PLAN NEURO: Minimize central acting medications as possible. Maintain fall precautions, adequate lighting during the day PULMONARY: Supplemental 02 as needed. Maintain aspiration precautions at all times CARDIOVASCULAR: Follow hemodynamics. Vital signs per facility protocol GI & NUTRITION: Continue with nutritional support. Continue stool softeners and laxatives as needed. KIDNEYS & ELECTROLYTES: Strict monitoring of intake, output and overall fluid balance. Avoid nephrotoxic medications to the extent possible. Medications to be dosed according to renal function. Monitor electrolytes and replace as needed ENDOCRINE: Maintain blood glucose between 100-180 at all times. Hypoglycemia protocol in place INFECTIOUS DISEASE: Trend temperature, WBC and procalcitonin level Follow cultures, deescalate antibiotics as soon as possible. Panculture if new onset fever ONCOLOGY/HEMATOLOGY/COAGULATION: Monitor for s/s of bleeding Monitor hemoglobin, coagulation studies as needed SKIN: Pressure ulcer prevention per facility protocol Specialty mattress ORTHO/REHAB: Continue PT/OT Prophylaxis: Continue GI and DVT prophylaxis Code Status: Full Resuscitation Prognosis remains guarded Recommend hospice Disposition: As per attending. Total time spent greater than 30 minutes. ATTESTATION BY PHYSICIAN The patient has been seen and evaluated, the case has been discussed with the [facility], I agree with the clinical findings and plan of care. Ok Arthur MD, [facility] Sep 23, 2024 10:36
--- NOTE | 2024-09-23 11:33 | NUR ---
RESOURCES SW met with son and discussed placement options with hospice. Vendor list with [place], private care houses, hospice homes and private pay caregivers provided. Son to review, states mother arrives tomorrow night at 945pm and she is the decision maker.
--- NOTE | 2024-09-23 12:00 | NUR ---
NOTIFY DR. HARGROVE ABOUT PAIN MANAGEMENT. VIEW NEW ORDERS.
--- NOTE | 2024-09-23 15:00 | NUR ---
PATIENT REFUSED LYRICA, STATED HE JUST WANTED TO REST AT THIS TIME.
--- NOTE | 2024-09-23 16:45 | PN ---
This is a 78-year-old male with history of BPH, hypertension, who presented to the hospital with abdominal pain and hematuria. Pain localized to the flank. No fever, no chills. Upon arrival in the Emergency Room, the patient found with clear urine in the urostomy bag. The patient had CT of the abdomen was one, which shows large pleural effusion and pneumonia. The patient was transferred from care home. No documented fever. He denies rashes or itchiness. Patient CT scan showed T11 blastic lesion suspicious for metastatic disease to the bone. Bone scan was done which showed extensive disease all over the body. PSA was normal. This patient have metastatic disease to the bone with the patient have stage IV. There is 2 family member in the room. PHYSICAL EXAMINATION: GENERAL: Elderly male, awake. VITAL SIGNS: Temperature 98.4, pulse 64, respiratory rate 18, BP 151/80. EYES: No icterus. Pupils equal and reactive. HENT: No oral lesions seen. Moist oral mucosa. NECK: Supple. No JVD or thyromegaly. LUNGS: Good air entry. No rales, no rhonchi. CARDIOVASCULAR: S1, S2 regular. No murmur heard. ABDOMEN: Soft. Bowel sound is present. Urostomy on the right side functioning well. CENTRAL NERVOUS SYSTEM: Awake, alert, Not oriented. No focal deficits. SKIN: No rashes, no itchiness. LYMPHATIC: No peripheral lymphadenopathy. BACK: No deformity, no pressure ulcer. HEMATOLOGIC: No bleeding or petechial lesions seen. MUSCULOSKELETAL: No joint swelling, erythema, or tenderness. VASCULAR: No ischemia or gangrene of extremities. ASSESSMENT: 1. Metastatic disease to the bone by bone scan. T12 blastic lesions suspicious for malignancy. There was a plan for bone scan to be done but could not be done. There is plan to do it tomorrow. 2. Left pleural effusion Status post thoracentesis with 1800 cc removed 4. Enlargement of the prostate 4. Mild anemia 5. Spinal stenosis 6. Hypertension 7. Severe pain 8. Pneumonia 9. Acute on chronic renal failure 10. Hematuria 11. Change mental status Plan 1. There was 2 family member in the room. I have long discussion with them. Bone scan showing disease all over the bone consistent with stage IV metastatic disease to the bone. There was nobody around the patient. It seems maybe this patient have a history of kidney cancer in the past. This patient will need CT scan chest abdomen pelvis with IV contrast if possible 2. I explained to them that maybe we need to fix your right femur and do biopsies there if they want aggressive treatment. They told me that they are waiting for their mother to come and they discussed the case with her. If they want any aggressive measures then they will call us so we could do the procedure next week 3. Patient with severe pain to the lower back with the pain is musculoskeletal. This patient to receive Toradol 15 mg every 8 hours as needed 4. PSA level was normal. So this patient most likely have metastatic disease from different origin. 5. We need more information about this patient especially possibility of history of bladder tumor. We need to know where this patient is seen and if there is any pathology. 6. It seems the family they want actually to do comfort care and hospice. 7. Patient received Aredia 90 mg IV. So this patient will need another infusion in 1 month. 8. If the family does not want hospice then this patient may be need to see him by orthopedic with possibility of fixing his right femur and may be getting biopsy for us from the bone. Vitals/Labs Vital Signs Date Time Temp Pulse Resp B/P (MAP) Pulse Ox O2 Delivery O2 Flow Rate FiO2 09/23/24 16:29 99.0 69 22 124/62 94 09/23/24 08:00 Nasal Cannula* 3 32 Laboratory Tests 09/23/24 05:22 Medications Current Medications Ceftriaxone Sodium 1 gm ONCE ONCE IVPB; Start 09/16/24 at 16:00; Stop 09/16/24 at 16:43; Status DC Sodium Chloride 1,000 ml @ 500 mls/hr Q2H IV Last administered on 09/17/24at 00:09; Start 09/16/24 at 16:00; Stop 09/17/24 at 11:47; Status DC Azithromycin 250 ml @ 250 mls/hr Q24H IVPB; Start 09/16/24 at 16:00; Stop 09/16/24 at 16:43; Status DC Cefepime HCl 1 gm Q8H IVPB Last administered on 09/17/24at 11:43; Start 09/16/24 at 16:30; Stop 09/17/24 at 13:53; Status DC Doxycycline Hyclate 100 mg BID PO Last administered on 09/19/24at 09:09; Start 09/16/24 at 21:00; Stop 09/19/24 at 09:53; Status DC Acetaminophen 650 mg Q4H PRN PO; Start 09/16/24 at 16:30; Stop 10/16/24 at 16:29 Ondansetron HCl 4 mg Q6H PRN PO; Start 09/16/24 at 16:30; Stop 10/16/24 at 16:29 Morphine Sulfate 2 mg Q6H6 PRN IVP Last administered on 09/20/24at 20:40; Start 09/16/24 at 17:00; Stop 09/21/24 at 20:01; Status DC Tramadol HCl 50 mg Q6H PRN PO Last administered on 09/18/24at 02:49; Start 09/17/24 at 14:00; Stop 09/18/24 at 10:12; Status DC Cefepime HCl 1 gm Q12H IVPB Last administered on 09/19/24at 00:15; Start 09/18/24 at 00:00; Stop 09/19/24 at 09:53; Status DC Clonidine HCl 0.1 mg AD PRN PO; Start 09/17/24 at 15:00; Stop 09/17/24 at 14:48; Status DC Docusate Sodium 100 mg BID PO Last administered on 09/23/24at 09:16; Start 09/17/24 at 21:00; Stop 10/17/24 at 20:59 Gabapentin 100 mg TID PO Last administered on 09/23/24at 09:15; Start 09/17/24 at 21:00; Stop 10/17/24 at 20:59 Guaifenesin 200 mg QID PO Last administered on 09/23/24at 12:51; Start 09/17/24 at 17:00; Stop 10/17/24 at 16:59 Pantoprazole Sodium 40 mg DAILY PO Last administered on 09/23/24at 09:16; Start 09/18/24 at 09:00; Stop 10/18/24 at 08:59 Polyethylene Glycol 17 gm DAILY PO Last administered on 09/23/24at 09:15; Start 09/18/24 at 09:00; Stop 10/18/24 at 08:59 Propranolol HCl 10 mg DAILY PO Last administered on 09/23/24at 09:15; Start 09/18/24 at 09:00; Stop 10/18/24 at 08:59 Tamsulosin HCl 0.4 mg DAILYBKFST PO Last administered on 09/23/24at 09:16; Start 09/18/24 at 08:00; Stop 10/18/24 at 07:59 Miscellaneous Medication 1 drop Q4PRN OP; Start 09/17/24 at 15:00; Stop 09/17/24 at 14:49; Status DC Home Med (Dutasteride 0.5 MG) DAILY PO; Start 09/18/24 at 09:00; Stop 10/18/24 at 08:59 Home Med (L.acidoph & Paracasei,B.lactis (Probiotic... DAILY PO; Start 09/18/24 at 09:00; Stop 10/18/24 at 08:59 Lactulose 20 gm DAILY PO Last administered on 09/23/24at 09:15; Start 09/18/24 at 09:00; Stop 10/18/24 at 08:59 Home Med (Melatonin 1 CAP) HS PO; Start 09/17/24 at 21:00; Stop 10/17/24 at 20:59 Multivitamins Therapeutic 1 tab DAILY PO Last administered on 09/23/24at 09:16; Start 09/18/24 at 09:00; Stop 10/18/24 at 08:59 Miscellaneous Medication 5 mg DAILY PO; Start 09/18/24 at 09:00; Stop 09/17/24 at 14:55; Status DC Home Med (Zinc Sulfate (Zinc)... DAILY PO; Start 09/18/24 at 09:00; Stop 10/18/24 at 08:59 Home Med ([Vitamin D3] 2,000 UNITS) DAILY PO; Start 09/18/24 at 09:00; Stop 10/18/24 at 08:59 Magnesium Sulfate 50 ml @ 0 mls/hr PROTOCOL PRN IV Last administered on 09/19/24at 07:19; Start 09/17/24 at 17:30; Stop 10/17/24 at 17:29 Furosemide 20 mg DAILY PO Last administered on 09/23/24at 09:16; Start 09/18/24 at 09:00; Stop 10/18/24 at 08:59 Ketorolac Tromethamine 15 mg Q6H PRN IV Last administered on 09/23/24at 11:28; Start 09/18/24 at 13:30; Stop 09/23/24 at 13:29; Status DC Lorazepam 0.5 mg ONCE ONCE IVP; Start 09/18/24 at 17:30; Stop 09/18/24 at 17:31; Status DC Meropenem 1 gm Q12H IV Last administered on 09/23/24at 12:51; Start 09/19/24 at 11:30; Stop 09/29/24 at 11:29 Lorazepam 0.5 mg ONCE ONCE IVP Last administered on 09/20/24at 08:30; Start 09/20/24 at 08:30; Stop 09/20/24 at 08:31; Status DC Pharmacy Profile Note 1 each ONCE MISC; Start 09/21/24 at 19:30; Stop 09/28/24 at 19:29 Pamidronate Disodium 90 mg/ Sodium Chloride 1,000 ml @ 250 mls/hr ONCE ONCE IV Last administered on 09/21/24at 20:25; Start 09/21/24 at 20:30; Stop 09/22/24 at 00:29; Status DC Morphine Sulfate 2 mg Q4H PRN IVP; Start 09/23/24 at 15:00; Stop 09/30/24 at 14:59 Tramadol HCl 50 mg Q6H PRN PO; Start 09/23/24 at 15:00; Stop 09/28/24 at 14:59 BIANKA CAMPBELL MD Sep 23, 2024 16:45
--- NOTE | 2024-09-23 21:59 | PN ---
INFECTIOUS DISEASE FOLLOWUP NOTE DATE OF SERVICE: 09/23/2024 SUBJECTIVE: The patient is seen and examined at bedside today. The patient has no fever or chills. Awake, alert, bedbound debility. The patient refused bone biopsy. The patient's case was discussed with son at the bedside. Denies chest pain. No palpitation or orthopnea. No depression. No suicidal ideation. No bleeding tendency. No rashes or itchiness. PHYSICAL EXAMINATION: VITAL SIGNS: Temperature 99.0, pulse 69, respiratory rate 18. EYES: No icterus. Pupils equal and reactive. HENT: No oral thrush seen. Moist oral mucosa. NECK: Supple. No JVD or thyromegaly. LUNGS: Decreased ____. CARDIOVASCULAR: S1, S2 regular. No murmur heard. ABDOMEN: Obese, soft. Bowel sound is present. CENTRAL NERVOUS SYSTEM: Awake, alert. ____. SKIN: No rashes, no itchiness. LYMPHATIC: No peripheral lymphadenopathy. BACK: No deformity, no pressure ulcer. ASSESSMENT: A 78-year-old male with multiple problems, which include: * Pneumonia. * Urinary tract infection. * The patient with multidrug resistant organism. * Leukocytosis. * Pleural effusion, status post left thoracentesis. * Metastatic prostate cancer. * Acute renal failure. * History of bladder tumor. PLAN: * Continue meropenem. * Continue pain management. * Continue oxygen. * Continue DVT prophylaxis. * Continue antiemetics. * Continue lactulose. * Monitor electrolytes. * Continue Lasix. TID: [id number] RECEIPT: [id number]
[2024-09-24 04:00] VITALS: BP 135/88; PULSE 85; RESP 16; TEMP 97.9
[2024-09-24 08:00] VITALS: BP 134/70; PULSE 96; RESP 15; TEMP 98.1; O2SAT 97
[2024-09-24] MEDS: traMADol HCL 50 MG TABLET PO PRN (09:56)
--- NOTE | 2024-09-24 10:39 | PN ---
[facility] PROGRESS NOTE Date Patient Seen: Sep 24, 2024 Time of Visit: 10:36 Supervising Physician: [Dr. Wanda Arthur Primary Care Physician: [Dr. Macias] Outpatient Specialists: [ ] Inpatient Consults: [BIS] Dr. Herman PROBLEM LIST: Suspected hospital acquired pneumonia, POA Acute complicated cystitis (+) ESBL E coli T-11 Blastic Lesion - positive for malignancy stage IV Acute renal failure POA-resolved Hypertension Obesity Hematuria, improved Left pleural effusion - status post left thoracentesis by IR -800 mL output History of RCC Plan Summary: Supplemental oxygen as needed Continue antibiotics per Infectious Disease Continue diuretics Chest x-ray in a.m. Follow oncology recommendation Prognosis remains guarded Recommend hospice care INTERVAL HISTORY: [Patient is evaluated at bedside. He was a very poor historian but does admit a history of spinal cancer. Can not recall whether it originated in his spine or metastasized to his spine. He was also unable to recall any details regarding treatment or how long ago he was diagnosed. He was unable to recall the name of his oncologist. His urine culture is positive for 100 K CFUs, continued on cefepime and doxycycline. Labs are unremarkable, unchanged from previous. Proc alcitonin is negative at 0.13, BNP is 89, lactic acid improved to 2.1. Patient did have some hemoptysis this morning which is more of blood-tinged sputum. Given his history of renal cancer, history of spinal cancer and T11 blastic focus on CT, this patient may have a malignant pleural effusion. Will order thoracentesis to evaluate for the same. He is pending a NM bone scan per oncology.] 09/19 patient is evaluated at bedside. He is resting but easily arousable. Unable to participate in history taking due to dementia. He is pending a thoracentesis today, we will evaluate cytology for suspected malignant pleural effusion. Echocardiogram shows no pericardial effusion per report. Patient also pending a nuclear medicine bone scan per Oncology. We will follow up with studies and further recommendations. 09/20 - patient is laying in bed resting quietly with no signs of acute distress. Patient continues with altered mental status secondary to advanced dementia. Patient is scheduled for a nuclear medicine bone scan this morning. Patient underwent a left thoracentesis by IR yesterday afternoon was 800 mL output. No postprocedure x-ray was obtained. We will follow. Patient remains on room air with no signs of respiratory distress. Vital Signs are stable. 09/21 Patient is a 78 year old gentleman, asleep, no fever, chills, no nausea or vomiting on adequate pain control management. Follow up on cytology results obtain medical records from hospital visit. 09/22 - patient is seen and evaluated at the bedside. Patient is sitting up bed continues to be weak, debilitated, deconditioned. Patient continues with AMS due to advanced dementia. Patient had a nuclear medicine bone scan performed which shows extensive bone metastasis worse in the right hip and right femur. As per nursing, patient has agreed to move forward with hospice services. Prognosis remains guarded. 09/23 - patient is seen sitting up in chair continues to be very weak, debilitated, deconditioned and hypoxemic on2 L via nasal cannula. Patient continues on IV antibiotics for ESBL E coli cystitis. As well as pneumonia. As per nursing, family has agreed to move forward with hospice services. 09/24 - patient is seen sitting up in bed continues to be very weak, debilitated, deconditioned. Patient with worsening respiratory distress requiring 3 L via nasal cannula. Patient continues on IV antibiotics for ESBL cystitis and pneumonia. No acute changes reported overnight. Vital signs are stable. Labs show patient continues with leukocytosis as 12.6. Oncology recommended bone biopsy however patient refused. Recommend continue antibiotics for pneumonia and acute cystitis. We will continue monitoring closely We will obtain a chest x-ray in a.m.. REVIEW OF SYSTEMS: 12 point ROS reviewed with patient. Pertinent positives mentioned above. Otherwise negative. PHYSICAL EXAM: GENERAL: alert, weak, awake oriented x 2 HEENT: EOMI, Sclera non icteric, moist mucosa NECK: Supple, no JVD, trachea midline LUNGS: Clear breath sounds bilaterally. No wheezes HEART: Regular rate and rhythm. Normal S1 and S2, without murmurs ABD: Abdomen soft, nontender. Bowel sounds present EXT: No clubbing cyanosis or edema NEURO: Alert and oriented to person, follows commands Vital Signs (last 8hr) Date Time Temp Pulse Resp B/P (MAP) Pulse Ox O2 Delivery O2 Flow Rate FiO2 09/24/24 08:00 98.1 96 15 134/70 97 Nasal Cannula 3.0 28 09/24/24 04:00 97.9 85 16 135/88 95 Nasal Cannula 2.0 LABS: Hematology Labs: Test 09/23/24 05:22 Range/Units White Blood Count 12.6 H 4.8-10.8 K/uL Red Blood Count 4.74 4.50-6.20 MIL/uL Hemoglobin 13.2 L 14.0-18.0 g/dL Hematocrit 40.9 L 42-54 % Mean Corpuscular Volume 86.3 79-99 fL Mean Corpuscular Hemoglobin 27.8 27.0-33.0 pg Mean Corpuscular Hemoglobin Concent 32.3 32.0-36.0 g/dL Red Cell Distribution Width 13.6 11.0-15.5 % Platelet Count 156 130-400 K/uL Mean Platelet Volume 10.2 7.5-10.5 fL Immature Granulocyte % (Auto) 2.4 H 0-1 % Neutrophils (%) (Auto) 82.0 H 40.0-77.0 % Lymphocytes (%) (Auto) 6.0 L 21.0-51.0 % Monocytes (%) (Auto) 8.8 3.0-13.0 % Eosinophils (%) (Auto) 0.5 0.0-8.0 % Basophils (%) (Auto) 0.3 0.0-5.0 % Neutrophils # (Auto) 10.3 H 1.8-7.7 K/uL Lymphocytes # (Auto) 0.8 L 1.0-4.8 K/uL Monocytes # (Auto) 1.1 H 0.1-1.0 K/uL Eosinophils # (Auto) 0.06 0.00-0.70 K/uL Basophils # (Auto) 0.04 0.00-0.20 K/uL Absolute Immature Granulocyte (auto 0.30 0-1 K/uL Nucleated Red Blood Cells 0.0 0.0-0.19 % Chemistry Labs: Test 09/23/24 05:22 Range/Units Sodium Level 142 136-145 mmol/L Potassium Level 4.1 3.5-5.1 mmol/L Chloride Level 108 101-111 mmol/L Carbon Dioxide Level 24 21-32 mmol/L Blood Urea Nitrogen 46 H 7-18 mg/dL Creatinine 1.1 0.5-1.3 mg/dL Glomerular Filtration Rate Calc 69 >90 mL/min Random Glucose 96 70-105 mg/dL Total Calcium 10.7 H 8.5-10.1 mg/dL Magnesium Level 2.00 1.80-2.40 mg/dL Total Bilirubin 0.7 0.2-1.0 mg/dL Aspartate Amino Transf (AST/SGOT) 49 H 10-37 U/L Alanine Aminotransferase (ALT/SGPT) 39 12-78 U/L Alkaline Phosphatase 438 H 50-136 U/L Total Protein 5.6 L 6.0-8.3 g/dL Albumin 2.1 L 3.5-5.0 g/dL DIAGNOSTICS / RADIOLOGY RESULTS: [ ] PLAN NEURO: Minimize central acting medications as possible. Maintain fall precautions, adequate lighting during the day PULMONARY: Supplemental 02 as needed. Maintain aspiration precautions at all times CARDIOVASCULAR: Follow hemodynamics. Vital signs per facility protocol GI & NUTRITION: Continue with nutritional support. Continue stool softeners and laxatives as needed. KIDNEYS & ELECTROLYTES: Strict monitoring of intake, output and overall fluid balance. Avoid nephrotoxic medications to the extent possible. Medications to be dosed according to renal function. Monitor electrolytes and replace as needed ENDOCRINE: Maintain blood glucose between 100-180 at all times. Hypoglycemia protocol in place INFECTIOUS DISEASE: Trend temperature, WBC and procalcitonin level Follow cultures, deescalate antibiotics as soon as possible. Panculture if new onset fever ONCOLOGY/HEMATOLOGY/COAGULATION: Monitor for s/s of bleeding Monitor hemoglobin, coagulation studies as needed SKIN: Pressure ulcer prevention per facility protocol Specialty mattress ORTHO/REHAB: Continue PT/OT Prophylaxis: Continue GI and DVT prophylaxis Code Status: Full Resuscitation Prognosis remains guarded Recommend hospice Disposition: As per attending. Total time spent greater than 30 minutes. ATTESTATION BY PHYSICIAN The patient has been seen and evaluated, the case has been discussed with the DIRECTOR SOCIAL SERVICE, I agree with the clinical findings and plan of care. Ok Arthur MD, ECTOR N DIRECTOR SOCIAL SERVICE Sep 24, 2024 10:39
[2024-09-24 12:00] VITALS: BP 123/73; PULSE 74; RESP 16; TEMP 98.1
--- NOTE | 2024-09-24 14:00 | NUR ---
PATIENT REFUSED COUGH SYRUP AND LYRICA, STATED HE JUST WANTED TO REST AT THIS TIME.
[2024-09-24 16:00] VITALS: BP 121/72; PULSE 75; RESP 15; TEMP 98.4
--- NOTE | 2024-09-24 17:21 | PN ---
INFECTIOUS DISEASE PROGRESS NOTE Date of Service: Sep 24, 2024 SUBJECTIVE: This is a 78 year old male patient who was sent to the emergency room from the long term for abdominal pain and hematuria. On arrival to the ED patient was found with clear urine in the urostomy bag. A CT of the chest showing large left pleural effusion and possible spine metastasis. Dishwasher and oncologist have been consulted. A urinalysis was positive. Patient was seen and examined at bedside in room 325. Patient is awake and alert. Patient s/p left paracentesis by IR on 09/19/2024. Patient with metastatic prostate cancer. Good urine output being reported in the urostomy bag. Per report patient's getting into town tomorrow to make decision on the hospice services. No fever this morning, temperature is 98.1. Continues on Meropenem for UTI with ESBL, E coli. No reports of nausea or vomiting. We will continue to follow patient's care. PHYSICAL EXAM EYES: Anicteric. Pupils equal and reactive. HENT: No oral thrush seen, moist Oral mucosa. NECK: Supple, no JVD or thyromegaly. LUNGS: Good air entry. No rales, no rhonchi. CARDIOVASCULAR: S1, S2 regular. No murmur heard. ABDOMEN: Soft, non tender, bowel sounds present, no organomegaly. CENTRAL NERVOUS SYSTEM: Awake, alert, oriented x 1. SKIN: No rashes, no swelling. LYMPHATICS: No peripheral lymphadenopathy. MUSCULOSKELETAL: No joint swelling, erythema or tenderness. EXTREMITIES: No cyanosis or clubbing. Weakness BACK: No deformity, no pressure ulcer. GENITOURINARY: Urostomy. Vital Sign (Last 12 Hours) 09/24/24 09/24/24 09/24/24 09/24/24 08:00 08:00 12:00 16:00 Temp 98.1 98.1 98.4 Pulse 96 74 75 Resp 15 16 15 B/P (MAP) 134/70 123/73 121/72 Pulse Ox 97 97 98 98 O2 Delivery Nasal Cannula* Nasal Cannula Nasal Cannula Nasal Cannula O2 Flow Rate 3 3.0 3.0 3.0 FiO2 32 28 28 28 Intake & Output (last 24hrs) 09/23/24 09/23/24 09/24/24 15:00 23:00 07:00 Output Total 150 ml 530 ml Balance -150 ml -530 ml LABS: Laboratory: Test 09/24/24 15:36 09/23/24 05:22 Range/Units Whole Blood Glucose 99 70-110 MG/DL White Blood Count 12.6 H 4.8-10.8 K/uL Red Blood Count 4.74 4.50-6.20 MIL/uL Hemoglobin 13.2 L 14.0-18.0 g/dL Hematocrit 40.9 L 42-54 % Mean Corpuscular Volume 86.3 79-99 fL Mean Corpuscular Hemoglobin 27.8 27.0-33.0 pg Mean Corpuscular Hemoglobin Concent 32.3 32.0-36.0 g/dL Red Cell Distribution Width 13.6 11.0-15.5 % Platelet Count 156 130-400 K/uL Mean Platelet Volume 10.2 7.5-10.5 fL Immature Granulocyte % (Auto) 2.4 H 0-1 % Neutrophils (%) (Auto) 82.0 H 40.0-77.0 % Lymphocytes (%) (Auto) 6.0 L 21.0-51.0 % Monocytes (%) (Auto) 8.8 3.0-13.0 % Eosinophils (%) (Auto) 0.5 0.0-8.0 % Basophils (%) (Auto) 0.3 0.0-5.0 % Neutrophils # (Auto) 10.3 H 1.8-7.7 K/uL Lymphocytes # (Auto) 0.8 L 1.0-4.8 K/uL Monocytes # (Auto) 1.1 H 0.1-1.0 K/uL Eosinophils # (Auto) 0.06 0.00-0.70 K/uL Basophils # (Auto) 0.04 0.00-0.20 K/uL Absolute Immature Granulocyte (auto 0.30 0-1 K/uL Nucleated Red Blood Cells 0.0 0.0-0.19 % Sodium Level 142 136-145 mmol/L Potassium Level 4.1 3.5-5.1 mmol/L Chloride Level 108 101-111 mmol/L Carbon Dioxide Level 24 21-32 mmol/L Blood Urea Nitrogen 46 H 7-18 mg/dL Creatinine 1.1 0.5-1.3 mg/dL Glomerular Filtration Rate Calc 69 >90 mL/min Random Glucose 96 70-105 mg/dL Total Calcium 10.7 H 8.5-10.1 mg/dL Magnesium Level 2.00 1.80-2.40 mg/dL Total Bilirubin 0.7 0.2-1.0 mg/dL Aspartate Amino Transf (AST/SGOT) 49 H 10-37 U/L Alanine Aminotransferase (ALT/SGPT) 39 12-78 U/L Alkaline Phosphatase 438 H 50-136 U/L Total Protein 5.6 L 6.0-8.3 g/dL Albumin 2.1 L 3.5-5.0 g/dL ASSESSMENT: Pneumonia. Urinary tract infection with E coli. Infection with multidrug resistant organism. Leukocytosis. Left pleural effusion, s/p left paracentesis by IR with 800 fluid removed on 09/19/2024. Metastatic prostate cancer. 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 Acute renal failure. History of bladder tumor with TURP. PLAN: Continue on Meropenem. Continue GI prophylaxis. Continue pain management. Provide urostomy care. Oncologist has evaluated patient and following. We will monitor electrolytes. 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 This case was reviewed and discussed with my supervising physician and the above assessment and plan was formulated and agreed upon. ATTESTATION BY PHYSICIAN I have seen and examined the patient. I reviewed the documentation, medical decision making, and treatment plan as noted by the mid-level provider above. I agree with the findings and plan of care. ANUP HARGROVE MD, [facility] ANIMAL FACILITY SUPERVISOR Sep 24, 2024 17:21
[2024-09-24 20:00] VITALS: BP 119/77; PULSE 81; RESP 28; TEMP 98.5
[2024-09-24] MEDS: IpraTROPium/alBUTERol SULFATE 3 ML SOLUTION IH SCH (20:00)
[2024-09-24 20:41] VITALS: O2SAT 96
[2024-09-25] VITALS (14 sets, daily range): BP systolic 112–147; BP diastolic 61–78; PULSE 65–103; RESP 18–28; TEMP 97.8–98.9; O2SAT 95–98
[2024-09-25 05:53] LABS: BASOPHILS # (AUTO) 0.07 K/uL (0.00-0.20); BASOPHILS % (AUTO) 0.4 % (0.0-5.0); EOSINOPHILS # (AUTO) 0.01 K/uL (0.00-0.70); EOSINOPHILS % (AUTO) 0.1 % (0.0-8.0); HEMATOCRIT 41.8 % (42-54); IMMATURE GRANULOCYTE ABSOLUTE 0.36 K/uL (0-1); LYMPHOCYTES % (AUTO) 5.7 % (21.0-51.0); MEAN CORPUSCULAR HEMOGLOBIN 27.8 pg (27.0-33.0); MEAN CORPUSCULAR HGB CONC 32.5 g/dL (32.0-36.0); MEAN CORPUSCULAR VOLUME 85.5 fL (79-99); MONOCYTES # (AUTO) 1.4 K/uL (0.1-1.0); MONOCYTES % (AUTO) 8.3 % (3.0-13.0); NEUTROPHILS # (AUTO) 14.6 K/uL (1.8-7.7); NEUTROPHILS % (AUTO) 83.4 % (40.0-77.0); PLATELET COUNT (AUTO) 163 K/uL (130-400); RED BLOOD CELL COUNT(AUTO) 4.89 MIL/uL (4.50-6.20); RED CELL DISTRIBUTION WIDTH 13.9 % (11.0-15.5); WHITE BLOOD COUNT (AUTO) 17.5 K/uL (4.8-10.8)
[2024-09-25 06:14] LABS: CREATININE 1.2 mg/dL (0.5-1.3); MAGNESIUM 2.3 mg/dL (1.80-2.40); POTASSIUM 3.9 mmol/L (3.5-5.1)
--- NOTE | 2024-09-25 09:00 | NUR ---
PATIENT REFUSED MEDICATIONS. NO SIGNS OF RESPIRATORY DISTRESS.
[2024-09-25] MEDS: morPHINE 2 MG SYG IVP PRN (10:23)
--- NOTE | 2024-09-25 10:30 | PN ---
[facility] PROGRESS NOTE Date Patient Seen: Sep 25, 2024 Time of Visit: 10:28 Supervising Physician: [ ] Dr. Wanda Arthur Primary Care Physician: [Dr. Macias] Outpatient Specialists: [ ] Inpatient Consults: [BIS] Dr. 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 Follow oncology recommendation Prognosis remains guarded Recommend hospice care INTERVAL HISTORY: [Patient is evaluated at bedside. He was a very poor historian but does admit a history of spinal cancer. Can not recall whether it originated in his spine or metastasized to his spine. He was also unable to recall any details regarding treatment or how long ago he was diagnosed. He was unable to recall the name of his oncologist. His urine culture is positive for 100 K CFUs, continued on cefepime and doxycycline. Labs are unremarkable, unchanged from previous. P rocalcitonin is negative at 0.13, BNP is 89, lactic acid improved to 2.1. Patient did have some hemoptysis this morning which is more of blood-tinged sputum. Given his history of renal cancer, history of spinal cancer and T11 blastic focus on CT, this patient may have a malignant pleural effusion. Will order thoracentesis to evaluate for the same. He is pending a NM bone scan per oncology.] 09/19 patient is evaluated at bedside. He is resting but easily arousable. Unable to participate in history taking due to dementia. He is pending a thoracentesis today, we will evaluate cytology for suspected malignant pleural effusion. Echocardiogram shows no pericardial effusion per report. Patient also pending a nuclear medicine bone scan per Oncology. We will follow up with studies and further recommendations. 09/20 - patient is laying in bed resting quietly with no signs of acute distress. Patient continues with altered mental status secondary to advanced dementia. Patient is scheduled for a nuclear medicine bone scan this morning. Patient underwent a left thoracentesis by IR yesterday afternoon was 800 mL output. No postprocedure x-ray was obtained. We will follow. Patient remains on room air with no signs of respiratory distress. Vital Signs are stable. 09/21 Patient is a 78 year old gentleman, asleep, no fever, chills, no nausea or vomiting on adequate pain control management. Follow up on cytology results obtain medical records from hospital visit. 09/22 - patient is seen and evaluated at the bedside. Patient is sitting up bed continues to be weak, debilitated, deconditioned. Patient continues with AMS due to advanced dementia. Patient had a nuclear medicine bone scan performed which shows extensive bone metastasis worse in the right hip and right femur. As per nursing, patient has agreed to move forward with hospice services. Prognosis remains guarded. 09/23 - patient is seen sitting up in chair continues to be very weak, debilitated, deconditioned and hypoxemic on2 L via nasal cannula. Patient continues on IV antibiotics for ESBL E coli cystitis. As well as pneumonia. As per nursing, family has agreed to move forward with hospice services. 09/24 - patient is seen sitting up in bed continues to be very weak, debilitated, deconditioned. Patient with worsening respiratory distress requiring 3 L via nasal cannula. Patient continues on IV antibiotics for ESBL cystitis and pneumonia. No acute changes reported overnight. Vital signs are stable. Labs show patient continues with leukocytosis as 12.6. Oncology recommended bone biopsy however patient refused. Recommend continue antibiotics for pneumonia a nd acute cystitis. We will continue monitoring closely We will obtain a chest x-ray in a.m.. 09/25 - patient is seen sitting up in bed continues to be very weak, debilitated and deconditioned and hypoxemic requiring 2 L via nasal cannula. Patient continues on antibiotics for acute cystitis and pneumonia. Patient had a low- grade fever last night. White count trended up to 17.5 from 12.6 previously. We will request blood cultures. Prognosis remains guarded. REVIEW OF SYSTEMS: 12 point ROS reviewed with patient. Pertinent positives mentioned above. Otherwise negative. PHYSICAL EXAM: GENERAL: alert, weak, awake oriented x 2 HEENT: EOMI, Sclera non icteric, moist mucosa NECK: Supple, no JVD, trachea midline LUNGS: Clear breath sounds bilaterally. No wheezes HEART: Regular rate and rhythm. Normal S1 and S2, without murmurs ABD: Abdomen soft, nontender. Bowel sounds present EXT: No clubbing cyanosis or edema NEURO: Alert and oriented to person, follows commands Vital Signs (last 8hr) Date Time Temp Pulse Resp B/P (MAP) Pulse Ox O2 Delivery O2 Flow Rate FiO2 09/25/24 08:26 99.0 103 22 147/76 97 09/25/24 07:25 101 18 N/Cannula Low lpm 2.0 28 09/25/24 07:24 101 18 09/25/24 04:00 98.4 80 24 127/77 96 Nasal Cannula 3.0 LABS: Hematology Labs: Test 09/25/24 05:18 Range/Units White Blood Count 17.5 H 4.8-10.8 K/uL Red Blood Count 4.89 4.50-6.20 MIL/uL Hemoglobin 13.6 L 14.0-18.0 g/dL Hematocrit 41.8 L 42-54 % Mean Corpuscular Volume 85.5 79-99 fL Mean Corpuscular Hemoglobin 27.8 27.0-33.0 pg Mean Corpuscular Hemoglobin Concent 32.5 32.0-36.0 g/dL Red Cell Distribution Width 13.9 11.0-15.5 % Platelet Count 163 130-400 K/uL Mean Platelet Volume 11.0 H 7.5-10.5 fL Immature Granulocyte % (Auto) 2.1 H 0-1 % Neutrophils (%) (Auto) 83.4 H 40.0-77.0 % Lymphocytes (%) (Auto) 5.7 L 21.0-51.0 % Monocytes (%) (Auto) 8.3 3.0-13.0 % Eosinophils (%) (Auto) 0.1 0.0-8.0 % Basophils (%) (Auto) 0.4 0.0-5.0 % Neutrophils # (Auto) 14.6 H 1.8-7.7 K/uL Lymphocytes # (Auto) 1.0 1.0-4.8 K/uL Monocytes # (Auto) 1.4 H 0.1-1.0 K/uL Eosinophils # (Auto) 0.01 0.00-0.70 K/uL Basophils # (Auto) 0.07 0.00-0.20 K/uL Absolute Immature Granulocyte (auto 0.36 0-1 K/uL Nucleated Red Blood Cells 0.0 0.0-0.19 % White Cell Morphology Comment See comments Chemistry Labs: Test 09/25/24 05:18 09/24/24 15:36 Range/Units Sodium Level 144 136-145 mmol/L Potassium Level 3.9 3.5-5.1 mmol/L Chloride Level 111 101-111 mmol/L Carbon Dioxide Level 23 21-32 mmol/L Blood Urea Nitrogen 52 H 7-18 mg/dL Creatinine 1.2 0.5-1.3 mg/dL Glomerular Filtration Rate Calc 62 >90 mL/min Random Glucose 105 70-105 mg/dL Total Calcium 9.5 8.5-10.1 mg/dL Magnesium Level 2.30 1.80-2.40 mg/dL Procalcitonin 0.31 0.05-0.5 ng/mL Whole Blood Glucose 99 70-110 MG/DL DIAGNOSTICS / RADIOLOGY RESULTS: [ ] PLAN NEURO: Minimize central acting medications as possible. Maintain fall precautions, adequate lighting during the day PULMONARY: Supplemental 02 as needed. Maintain aspiration precautions at all times CARDIOVASCULAR: Follow hemodynamics. Vital signs per facility protocol GI & NUTRITION: Continue with nutritional support. Continue stool softeners and laxatives as needed. KIDNEYS & ELECTROLYTES: Strict monitoring of intake, output and overall fluid balance. Avoid nephrotoxic medications to the extent possible. Medications to be dosed according to renal function. Monitor electrolytes and replace as needed ENDOCRINE: Maintain blood glucose between 100-180 at all times. Hypoglycemia protocol in place INFECTIOUS DISEASE: Trend temperature, WBC and procalcitonin level Follow cultures, deescalate antibiotics as soon as possible. Panculture if new onset fever ONCOLOGY/HEMATOLOGY/COAGULATION: Monitor for s/s of bleeding Monitor hemoglobin, coagulation studies as needed SKIN: Pressure ulcer prevention per facility protocol Specialty mattress ORTHO/REHAB: Continue PT/OT Prophylaxis: Continue GI and DVT prophylaxis Code Status: Full Resuscitation Prognosis remains guarded Recommend hospice Disposition: As per attending. Total time spent greater than 30 minutes. ATTESTATION BY PHYSICIAN The patient has been seen and evaluated, the case has been discussed with the DYSLEXIA TEACHER, I agree with the clinical findings and plan of care. Ok Arthur MD, ECTOR N DYSLEXIA TEACHER Sep 25, 2024 10:30
--- NOTE | 2024-09-25 12:00 | NUR ---
DISCUSSED WITH ADULT CHILDREN AND PATIENTS ADVANCE DIRECTIVES, PLAN OF CARE, PAIN MANAGEMENT AND MEDICATIONS. PATIENTS AND DAUGHTER VERBALIZED UNDERSTANDING BUT STATED THAT THEY WONT MAKE ANY DECISIONS WITHOUT TALKING TO THE DOCTORS AND MANAGER BANKING/CASE MANAGEMENT. CALLED FRAME GATE MORTISER OPERATOR MRS. PATEL TO NOTIFY HER ABOUT WHAT WAS DISCUSSED WITH PATIENTS ( POWER OF JEWEL BEARING POLISHER) CALLED MRS. FROST DISPLAY ARTIST FOR DR. HARGROVE AND NOTIFY HER THAT PATIENTS WAS HERE.
--- NOTE | 2024-09-25 13:00 | NUR ---
PATIENT REFUSED ORAL MEDICATIONS. RE POSITIONED PATIENT TO HIS COMFORT.
--- NOTE | 2024-09-25 17:00 | NUR ---
PATIENT REFUSED ORAL MEDICATIONS. RE POSITIONED PATIENT TO HIS COMFORT.
--- NOTE | 2024-09-25 20:18 | PN ---
INFECTIOUS DISEASE PROGRESS NOTE Date of Service: Sep 25, 2024 SUBJECTIVE: This is a 78 year old male patient who was sent to the emergency room from the residential for abdominal pain and hematuria. On arrival to the ED patient was found with clear urine in the urostomy bag. A CT of the chest showing large left pleural effusion and possible spine metastasis. Vine Fruit Farming Supervisor and oncologist have been consulted. Patient underwent left paracentesis by IR on 09/19/2024 with 800 fluid removed. A bone scan was done which showed extensive bone metastasis worse in the right hip and the right femur. A urine culture collected on admission came back positive for ESBL, E coli. Patient was seen and examined at bedside in room 325. Patient is comfortably in bed. Per nursing report patient is refusing oral me dications. Continues with poor oral intake. Patient's daughter visiting at bedside. Plan of care discussed with her. Stated that her mother is flying into town later today and already has an appointment to meet with the social insurance adviser tomorrow morning. Patient s/p left paracentesis by IR on 09/19/2024. Patient with metastatic prostate cancer. Patient's WBC is elevated at 17.5 but is afebrile, temperature is 99.0. Continues on Meropenem for UTI with ESBL, E coli. No reports of nausea or vomiting. We will continue to follow patient's care. PHYSICAL EXAM EYES: Anicteric. Pupils equal and reactive. HENT: No oral thrush seen, moist Oral mucosa. NECK: Supple, no JVD or thyromegaly. LUNGS: Good air entry. No rales, no rhonchi. CARDIOVASCULAR: S1, S2 regular. No murmur heard. ABDOMEN: Soft, non tender, bowel sounds present, no organomegaly. CENTRAL NERVOUS SYSTEM: Awake, alert, oriented x 1. SKIN: No rashes, no swelling. LYMPHATICS: No peripheral lymphadenopathy. MUSCULOSKELETAL: No joint swelling, erythema or tenderness. EXTREMITIES: No cyanosis or clubbing. Weakness BACK: No deformity, no pressure ulcer. GENITOURINARY: Urostomy. Vital Sign (Last 12 Hours) 09/25/24 09/25/24 09/25/24 09/25/24 08:26 11:40 11:41 12:32 Temp 99.0 97.9 Pulse 103 94 94 70 Resp 22 18 18 22 B/P (MAP) 147/76 112/61 Pulse Ox 97 100 O2 Delivery N/Cannula Low lpm O2 Flow Rate 2.0 FiO2 28 09/25/24 09/25/24 09/25/24 16:00 19:01 19:01 Temp 98.1 Pulse 96 89 89 Resp 21 19 19 B/P (MAP) 129/78 Pulse Ox 98 O2 Delivery N/Cannula Low lpm O2 Flow Rate 3.0 FiO2 32 Intake & Output (last 24hrs) 09/24/24 09/24/24 09/25/24 15:00 23:00 07:00 Intake Total 180 ml 240 ml Output Total 300 ml 200 ml 420 ml Balance -120 ml 40 ml -420 ml LABS: Laboratory: Test 09/25/24 05:18 09/24/24 15:36 Range/Units White Blood Count 17.5 H 4.8-10.8 K/uL Red Blood Count 4.89 4.50-6.20 MIL/uL Hemoglobin 13.6 L 14.0-18.0 g/dL Hematocrit 41.8 L 42-54 % Mean Corpuscular Volume 85.5 79-99 fL Mean Corpuscular Hemoglobin 27.8 27.0-33.0 pg Mean Corpuscular Hemoglobin Concent 32.5 32.0-36.0 g/dL Red Cell Distribution Width 13.9 11.0-15.5 % Platelet Count 163 130-400 K/uL Mean Platelet Volume 11.0 H 7.5-10.5 fL Immature Granulocyte % (Auto) 2.1 H 0-1 % Neutrophils (%) (Auto) 83.4 H 40.0-77.0 % Lymphocytes (%) (Auto) 5.7 L 21.0-51.0 % Monocytes (%) (Auto) 8.3 3.0-13.0 % Eosinophils (%) (Auto) 0.1 0.0-8.0 % Basophils (%) (Auto) 0.4 0.0-5.0 % Neutrophils # (Auto) 14.6 H 1.8-7.7 K/uL Lymphocytes # (Auto) 1.0 1.0-4.8 K/uL Monocytes # (Auto) 1.4 H 0.1-1.0 K/uL Eosinophils # (Auto) 0.01 0.00-0.70 K/uL Basophils # (Auto) 0.07 0.00-0.20 K/uL Absolute Immature Granulocyte (auto 0.36 0-1 K/uL Nucleated Red Blood Cells 0.0 0.0-0.19 % White Cell Morphology Comment See comments Sodium Level 144 136-145 mmol/L Potassium Level 3.9 3.5-5.1 mmol/L Chloride Level 111 101-111 mmol/L Carbon Dioxide Level 23 21-32 mmol/L Blood Urea Nitrogen 52 H 7-18 mg/dL Creatinine 1.2 0.5-1.3 mg/dL Glomerular Filtration Rate Calc 62 >90 mL/min Random Glucose 105 70-105 mg/dL Total Calcium 9.5 8.5-10.1 mg/dL Magnesium Level 2.30 1.80-2.40 mg/dL Procalcitonin 0.31 0.05-0.5 ng/mL Whole Blood Glucose 99 70-110 MG/DL ASSESSMENT: Pneumonia. Urinary tract infection with E coli. Infection with multidrug resistant organism. Leukocytosis. Left pleural effusion, s/p left paracentesis by IR with 800 fluid removed on 09/19/2024. Metastatic prostate cancer. 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 Acute renal failure. History of bladder tumor with TURP. PLAN: Continue on Meropenem. Continue GI prophylaxis. Continue pain management. Provide urostomy care. Oncologist has evaluated patient and following. We will monitor electrolytes. appliance worker pending on family decision on hospice services arrangement. This case was reviewed and discussed with my supervising physician and the above assessment and plan was formulated and agreed upon. ATTESTATION BY PHYSICIAN I have seen and examined the patient. I reviewed the documentation, medical decision making, and treatment plan as noted by the mid-level provider above. I agree with the findings and plan of care. ANUP HARGROVE MD, MIRTA L PACKING AND FINAL ASSEMBLY SUPERVISOR Sep 25, 2024 20:18
[2024-09-26] VITALS (12 sets, daily range): BP systolic 102–135; BP diastolic 54–68; PULSE 60–115; RESP 18–24; TEMP 98–98.8; O2SAT 95–98
[2024-09-26 06:34] LABS: BASOPHILS # (AUTO) 0.06 K/uL (0.00-0.20); BASOPHILS % (AUTO) 0.4 % (0.0-5.0); EOSINOPHILS # (AUTO) 0.01 K/uL (0.00-0.70); EOSINOPHILS % (AUTO) 0.1 % (0.0-8.0); HEMATOCRIT 43.8 % (42-54); IMMATURE GRANULOCYTE ABSOLUTE 0.41 K/uL (0-1); LYMPHOCYTES # (AUTO) 0.9 K/uL (1.0-4.8); LYMPHOCYTES % (AUTO) 5.4 % (21.0-51.0); MEAN CORPUSCULAR HEMOGLOBIN 28.2 pg (27.0-33.0); MEAN CORPUSCULAR HGB CONC 31.7 g/dL (32.0-36.0); MEAN CORPUSCULAR VOLUME 88.8 fL (79-99); MONOCYTES # (AUTO) 1.3 K/uL (0.1-1.0); MONOCYTES % (AUTO) 8.1 % (3.0-13.0); NEUTROPHILS # (AUTO) 13.7 K/uL (1.8-7.7); NEUTROPHILS % (AUTO) 83.5 % (40.0-77.0); PLATELET COUNT (AUTO) 144 K/uL (130-400); RED BLOOD CELL COUNT(AUTO) 4.93 MIL/uL (4.50-6.20); RED CELL DISTRIBUTION WIDTH 13.9 % (11.0-15.5); WHITE BLOOD COUNT (AUTO) 16.4 K/uL (4.8-10.8)
[2024-09-26 06:56] LABS: ALBUMIN 1.8 g/dL (3.5-5.0); BILIRUBIN,TOTAL 0.7 mg/dL (0.2-1.0); CREATININE 1.4 mg/dL (0.5-1.3); MAGNESIUM 2.4 mg/dL (1.80-2.40); POTASSIUM 4.1 mmol/L (3.5-5.1); TOTAL PROTEIN, SERUM 5.7 g/dL (6.0-8.3)
--- NOTE | 2024-09-26 09:47 | NUR ---
[facility] SW spoke to Karishma Subramaniandebbie [phone], who currently has a bed available and cam take a male pt. SW to speak to pt's and family when she is at [facility] regarding this option vs a hospice home since is 80+ and would have to drive to see pt. Pt's nurse aware and will notify when family at bedside
--- NOTE | 2024-09-26 10:07 | HMCIMG ---
CHEST 1VW REASON: pneumonia COMPARISON: 09/21/2024. FINDINGS: Left lung is now opaque. There is shift of mediastinal structures right to left. This could be due to atelectasis or combination of atelectasis and effusion. The right lung remains clear. Chest port remains in place. Impression: 1. Opaque left hemithorax which could be atelectasis or combination of atelectasis and effusion.
--- NOTE | 2024-09-26 10:10 | PN ---
[facility] PROGRESS NOTE Date Patient Seen: Sep 26, 2024 Time of Visit: 10:07 Supervising Physician: [Dr. Payne Primary Care Physician: [Dr. Macias] Outpatient Specialists: [ ] Inpatient Consults: [[facility]] Dr. 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 He was a very poor historian but does admit a history of spinal cancer. Can not recall whether it originated in his spine or metastasized to his spine. He was also unable to recall any details regarding treatment or how long ago he was diagnosed. He was unable to recall the name of his oncologist. His urine culture is positive for 100 K CFUs, continued on cefepime and doxycycline. Labs are unremarkable, unchanged from previous. Procalcitonin is negative at 0.13, BNP is 89, lactic acid improved to 2.1. Patient did have some hemoptysis this morning which is more of blood-tinged sputum. Given his history of renal cancer, history of spinal cancer and T11 blastic focus on CT, this patient may have a malignant pleural effusion. Will order thoracentesis to evaluate for the same. He is pending a NM bone scan per oncology.] 09/19 patient is evaluated at bedside. He is resting but easily arousable. Unable to participate in history taking due to dementia. He is pending a thoracentesis today, we will evaluate cytology for suspected malignant pleural effusion. Echocardiogram shows no pericardial effusion per report. Patient also pending a nuclear medicine bone scan per Oncology. We will follow up with studies and further recommendations. 09/20 - patient is laying in bed resting quietly with no signs of acute distress. Patient continues with altered mental status secondary to advanced dementia. Patient is scheduled for a nuclear medicine bone scan this morning. Patient underwent a left thoracentesis by IR yesterday afternoon was 800 mL output. No postprocedure x-ray was obtained. We will follow. Patient remains on room air with no signs of respiratory distress. Vital Signs are stable. 09/21 Patient is a 78 year old gentleman, asleep, no fever, chills, no nausea or vomiting on adequate pain control management. Follow up on cytology results obtain medical records from hospital visit. 09/22 - patient is seen and evaluated at the bedside. Patient is sitting up bed continues to be weak, debilitated, deconditioned. Patient continues with AMS due to advanced dementia. Patient had a nuclear medicine bone scan performed which shows extensive bone metastasis worse in the right hip and right femur. As per nursing, patient has agreed to move forward with hospice services. Prognosis remains guarded. 09/23 - patient is seen sitting up in chair continues to be very weak, debilitated, deconditioned and hypoxemic on2 L via nasal cannula. Patient continues on IV antibiotics for ESBL E coli cystitis. As well as pneumonia. As per nursing, family has agreed to move forward with hospice services. 09/24 - patient is seen sitting up in bed continues to be very weak, debilitated, deconditioned. Patient with worsening respiratory distress requiring 3 L via nasal cannula. Patient continues on IV antibiotics for ESBL cystitis and pneumonia. No acute changes reported overnight. Vital signs are stable. Labs show patient continues with leukocytosis as 12.6. Oncology recommended bone biopsy however patient refused. Recommend continue antibiotics for pneumonia and acute cystitis. We will continue monitoring closely We will obtain a chest x-ray in a.m.. 09/25 - patient is seen sitting up in bed continues to be very weak, debilitated and deconditioned and hypoxemic requiring 2 L via nasal cannula. Patient continues on antibiotics for acute cystitis and pneumonia. Patient had a low- grade fever last night. White count trended up to 17.5 from 12.6 previously. We will request blood cultures. Prognosis remains guarded. 09/26 - patient is seen lying in bed resting quietly continues to be very weak, debilitated and deconditioned and hypoxemic on2 L via nasal cannula. Patient continues to refuse medications. Patient also continuing to refuse to eat this morning. Patient remained afebrile overnight. Patient continues with leuk ocytosis at 16.4 This morning. Patient continues on broad-spectrum antibiotics as per Infectious Disease. We are currently pending today's chest x-ray for review. Recommend continued IV antibiotics as well as diuresing with Lasix. We will continue to follow with you. REVIEW OF SYSTEMS: 12 point ROS reviewed with patient. Pertinent positives mentioned above. Otherwise negative. PHYSICAL EXAM: GENERAL: alert, weak, awake oriented x 2 HEENT: EOMI, Sclera non icteric, moist mucosa NECK: Supple, no JVD, trachea midline LUNGS: Clear breath sounds bilaterally. No wheezes HEART: Regular rate and rhythm. Normal S1 and S2, without murmurs ABD: Abdomen soft, nontender. Bowel sounds present EXT: No clubbing cyanosis or edema NEURO: Alert and oriented to person, follows commands Vital Signs (last 8hr) Date Time Temp Pulse Resp B/P (MAP) Pulse Ox O2 Delivery O2 Flow Rate FiO2 09/26/24 08:12 98.1 85 18 102/58 98 09/26/24 06:49 98 18 09/26/24 06:49 91 18 N/Cannula Low lpm 3.0 32 09/26/24 03:55 98.2 115 24 135/68 95 Nasal Cannula 3.0 LABS: Hematology Labs: Test 09/26/24 06:05 09/25/24 05:18 Range/Units White Blood Count 16.4 H 4.8-10.8 K/uL Red Blood Count 4.93 4.50-6.20 MIL/uL Hemoglobin 13.9 L 14.0-18.0 g/dL Hematocrit 43.8 42-54 % Mean Corpuscular Volume 88.8 79-99 fL Mean Corpuscular Hemoglobin 28.2 27.0-33.0 pg Mean Corpuscular Hemoglobin Concent 31.7 L 32.0-36.0 g/dL Red Cell Distribution Width 13.9 11.0-15.5 % Platelet Count 144 130-400 K/uL Mean Platelet Volume 11.5 H 7.5-10.5 fL Immature Granulocyte % (Auto) 2.5 H 0-1 % Neutrophils (%) (Auto) 83.5 H 40.0-77.0 % Lymphocytes (%) (Auto) 5.4 L 21.0-51.0 % Monocytes (%) (Auto) 8.1 3.0-13.0 % Eosinophils (%) (Auto) 0.1 0.0-8.0 % Basophils (%) (Auto) 0.4 0.0-5.0 % Neutrophils # (Auto) 13.7 H 1.8-7.7 K/uL Lymphocytes # (Auto) 0.9 L 1.0-4.8 K/uL Monocytes # (Auto) 1.3 H 0.1-1.0 K/uL Eosinophils # (Auto) 0.01 0.00-0.70 K/uL Basophils # (Auto) 0.06 0.00-0.20 K/uL Absolute Immature Granulocyte (auto 0.41 0-1 K/uL Nucleated Red Blood Cells 0.0 0.0-0.19 % White Cell Morphology Comment See comments Chemistry Labs: Test 09/26/24 06:05 09/25/24 05:18 09/24/24 15:36 Range/Units Sodium Level 141 136-145 mmol/L Potassium Level 4.1 3.5-5.1 mmol/L Chloride Level 106 101-111 mmol/L Carbon Dioxide Level 24 21-32 mmol/L Blood Urea Nitrogen 52 H 7-18 mg/dL Creatinine 1.4 H 0.5-1.3 mg/dL Glomerular Filtration Rate Calc 52 >90 mL/min Random Glucose 104 70-105 mg/dL Total Calcium 9.1 8.5-10.1 mg/dL Magnesium Level 2.40 1.80-2.40 mg/dL Total Bilirubin 0.7 0.2-1.0 mg/dL Aspartate Amino Transf (AST/SGOT) 57 H 10-37 U/L Alanine Aminotransferase (ALT/SGPT) 31 12-78 U/L Alkaline Phosphatase 577 H 50-136 U/L Total Protein 5.7 L 6.0-8.3 g/dL Albumin 1.8 L 3.5-5.0 g/dL Procalcitonin 0.31 0.05-0.5 ng/mL Whole Blood Glucose 99 70-110 MG/DL DIAGNOSTICS / RADIOLOGY RESULTS: [ ] PLAN NEURO: Minimize central acting medications as possible. Maintain fall precautions, adequate lighting during the day PULMONARY: Supplemental 02 as needed. Maintain aspiration precautions at all times CARDIOVASCULAR: Follow hemodynamics. Vital signs per facility protocol GI & NUTRITION: Continue with nutritional support. Continue stool softeners and laxatives as needed. KIDNEYS & ELECTROLYTES: Strict monitoring of intake, output and overall fluid balance. Avoid nephrotoxic medications to the extent possible. Medications to be dosed according to renal function. Monitor electrolytes and replace as needed ENDOCRINE: Maintain blood glucose between 100-180 at all times. Hypoglycemia protocol in place INFECTIOUS DISEASE: Trend temperature, WBC and procalcitonin level Follow cultures, deescalate antibiotics as soon as possible. Panculture if new onset fever ONCOLOGY/HEMATOLOGY/COAGULATION: Monitor for s/s of bleeding Monitor hemoglobin, coagulation studies as needed SKIN: Pressure ulcer prevention per facility protocol Specialty mattress ORTHO/REHAB: Continue PT/OT Prophylaxis: Continue GI and DVT prophylaxis Code Status: Full Resuscitation Prognosis remains guarded Recommend hospice Disposition: As per attending. Total time spent greater than 30 minutes. ATTESTATION BY PHYSICIAN I reviewed the documentation, medical decision making, and treatment plan as noted by the mid-level provider above. I agree with the findings and plan of care. Jared Payne MD,JASMIN N FABRICATION SUPERVISOR Sep 26, 2024 10:10
--- NOTE | 2024-09-26 10:23 | NUR ---
Md notified patient refuses am meds , one am med changed to iv after md reviewed am scheduled meds.
[2024-09-26] MEDS: furoSEMIDE 20MG VIAL IV SCH (12:43)
--- NOTE | 2024-09-26 14:27 | NUR ---
DCP: [facility] WITH [facility] [phone] NOEMÍ met with pt and his , 2 sons and a daughter and provided information on hospice with placement. Informed them [facility] and son made contact with Karishma for arrangements. NOEMÍ spoke to Karishma regarding hospice. She recommended [facility] to family and they agreed. SW to get consent and make referral. DC pending arrangements to be made
--- NOTE | 2024-09-26 15:10 | NUR ---
DCP: [facility]CI[facility] WITH [facility] [phone] Luz Maria met with and daughter. in agreement with [facility] and selected by Son. signed consent for referral. Family requesting transfer tomorrow. Referral made to [facility] and clinicals faxed to office with [facility] Per Karishma, son has made payment and they will be ready for pt once DME is delivered
--- NOTE | 2024-09-26 17:29 | PN ---
INFECTIOUS DISEASE PROGRESS NOTE Date of Service: Sep 26, 2024 SUBJECTIVE: This is a 78 year old male patient who [facility] and hematuria. On arrival to the ED patient was found with clear urine in the urostomy bag. A CT of the chest showing large left pleural effusion and possible spine metastasis. Non Destructive Testing Engineer and oncologist have been consulted. Patient underwent left paracentesis by IR on 09/19/2024 with 800 fluid removed. A bone scan was done which showed extensive bone metastasis worse in the right hip and the right femur. A urine culture collected on admission came back positive for ESBL, E coli. Patient was seen and examined at bedside in room 325. Patient is comfortably in bed. Patient s/p left paracentesis by IR on 025. Patient with metastatic prostate cancer. Patient's , son and daughter visiting at bedside. Family members have agreed to hospice services and court worker working on placement to [facility]. No fever, temperature is 98.1, the WBC however still elevated at 16.4. Continues on Meropenem for UTI with ESBL, E coli. We will continue to follow patient's care. PHYSICAL EXAM EYES: Anicteric. Pupils equal and reactive. HENT: No oral thrush seen, moist Oral mucosa. NECK: Supple, no JVD or thyromegaly. LUNGS: Good air entry. No rales, no rhonchi. CARDIOVASCULAR: S1, S2 regular. No murmur heard. ABDOMEN: Soft, non tender, bowel sounds present, no organomegaly. CENTRAL NERVOUS SYSTEM: Awake, alert, oriented x 1. SKIN: No rashes, no swelling. LYMPHATICS: No peripheral lymphadenopathy. MUSCULOSKELETAL: No joint swelling, erythema or tenderness. EXTREMITIES: No cyanosis or clubbing. Weakness BACK: No deformity, no pressure ulcer. GENITOURINARY: Urostomy. Vital Sign (Last 12 Hours) 09/26/24 09/26/24 09/26/24 09/26/24 06:49 06:49 08:12 11:06 Temp 98.1 Pulse 91 98 85 109 Resp 18 18 18 18 B/P (MAP) 102/58 Pulse Ox 98 O2 Delivery N/Cannula Low lpm N/Cannula Low lpm O2 Flow Rate 3.0 3.0 FiO2 32 32 09/26/24 09/26/24 09/26/24 11:06 11:27 16:26 Temp 98.1 98.8 Pulse 108 60 110 Resp 18 22 20 B/P (MAP) 135/63 106/54 Pulse Ox 97 97 Intake & Output (last 24hrs) 09/25/24 09/25/24 09/26/24 15:00 23:00 07:00 Output Total 400 ml 960 ml Balance -400 ml -960 ml LABS: Laboratory: Test 09/26/24 06:05 09/25/24 05:18 Range/Units White Blood Count 16.4 H 4.8-10.8 K/uL Red Blood Count 4.93 4.50-6.20 MIL/uL Hemoglobin 13.9 L 14.0-18.0 g/dL Hematocrit 43.8 42-54 % Mean Corpuscular Volume 88.8 79-99 fL Mean Corpuscular Hemoglobin 28.2 27.0-33.0 pg Mean Corpuscular Hemoglobin Concent 31.7 L 32.0-36.0 g/dL Red Cell Distribution Width 13.9 11.0-15.5 % Platelet Count 144 130-400 K/uL Mean Platelet Volume 11.5 H 7.5-10.5 fL Immature Granulocyte % (Auto) 2.5 H 0-1 % Neutrophils (%) (Auto) 83.5 H 40.0-77.0 % Lymphocytes (%) (Auto) 5.4 L 21.0-51.0 % Monocytes (%) (Auto) 8.1 3.0-13.0 % Eosinophils (%) (Auto) 0.1 0.0-8.0 % Basophils (%) (Auto) 0.4 0.0-5.0 % Neutrophils # (Auto) 13.7 H 1.8-7.7 K/uL Lymphocytes # (Auto) 0.9 L 1.0-4.8 K/uL Monocytes # (Auto) 1.3 H 0.1-1.0 K/uL Eosinophils # (Auto) 0.01 0.00-0.70 K/uL Basophils # (Auto) 0.06 0.00-0.20 K/uL Absolute Immature Granulocyte (auto 0.41 0-1 K/uL Nucleated Red Blood Cells 0.0 0.0-0.19 % Sodium Level 141 136-145 mmol/L Potassium Level 4.1 3.5-5.1 mmol/L Chloride Level 106 101-111 mmol/L Carbon Dioxide Level 24 21-32 mmol/L Blood Urea Nitrogen 52 H 7-18 mg/dL Creatinine 1.4 H 0.5-1.3 mg/dL Glomerular Filtration Rate Calc 52 >90 mL/min Random Glucose 104 70-105 mg/dL Total Calcium 9.1 8.5-10.1 mg/dL Magnesium Level 2.40 1.80-2.40 mg/dL Total Bilirubin 0.7 0.2-1.0 mg/dL Aspartate Amino Transf (AST/SGOT) 57 H 10-37 U/L Alanine Aminotransferase (ALT/SGPT) 31 12-78 U/L Alkaline Phosphatase 577 H 50-136 U/L Total Protein 5.7 L 6.0-8.3 g/dL Albumin 1.8 L 3.5-5.0 g/dL White Cell Morphology Comment See comments Procalcitonin 0.31 0.05-0.5 ng/mL ASSESSMENT: Pneumonia. Urinary tract infection with E coli. Infection with multidrug resistant organism. Leukocytosis. Left pleural effusion, s/p left paracentesis by IR with 800 fluid removed on 09/19/2024. Metastatic prostate cancer. 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 Acute renal failure. History of bladder tumor with TURP. PLAN: Continue on Meropenem. Continue GI prophylaxis. Continue pain management. Provide urostomy care. Oncologist has evaluated patient and following. We will monitor electrolytes. court worker working on placement up placement to [facility] with hospice services. This case was reviewed and discussed with my supervising physician and the above assessment and plan was formulated and agreed upon. ATTESTATION BY PHYSICIAN I have seen and examined the patient. I reviewed the documentation, medical decision making, and treatment plan as noted by the mid-level provider above. I agree with the findings and plan of care. ANUP HARGROVE MD, MIRTA L INTAKE NURSE Sep 26, 2024 17:29
--- NOTE | 2024-09-26 23:33 | PN ---
This is a 78-year-old male with history of BPH, hypertension, who presented to the hospital with abdominal pain and hematuria. Pain localized to the flank. No fever, no chills. Upon arrival in the Emergency Room, the patient found with clear urine in the urostomy bag. The patient had CT of the abdomen was one, which shows large pleural effusion and pneumonia. The patient was transferred from alf. No documented fever. He denies rashes or itchiness. Patient CT scan showed T11 blastic lesion suspicious for metastatic disease to the bone. Bone scan was done which showed extensive disease all over the body. PSA was normal. This patient have metastatic disease to the bone with the patient have stage IV. There is 2 family member in the room. PHYSICAL EXAMINATION: GENERAL: Elderly male, awake. VITAL SIGNS: Temperature 98.4, pulse 64, respiratory rate 18, BP 151/80. EYES: No icterus. Pupils equal and reactive. HENT: No oral lesions seen. Moist oral mucosa. NECK: Supple. No JVD or thyromegaly. LUNGS: Good air entry. No rales, no rhonchi. CARDIOVASCULAR: S1, S2 regular. No murmur heard. ABDOMEN: Soft. Bowel sound is present. Urostomy on the right side functioning well. CENTRAL NERVOUS SYSTEM: Awake, alert, Not oriented. No focal deficits. SKIN: No rashes, no itchiness. LYMPHATIC: No peripheral lymphadenopathy. BACK: No deformity, no pressure ulcer. HEMATOLOGIC: No bleeding or petechial lesions seen. MUSCULOSKELETAL: No joint swelling, erythema, or tenderness. VASCULAR: No ischemia or gangrene of extremities. ASSESSMENT: 1. Metastatic disease to the bone by bone scan. T12 blastic lesions suspicious for malignancy. There was a plan for bone scan to be done but could not be done. There is plan to do it tomorrow. 2. Left pleural effusion Status post thoracentesis with 1800 cc removed 4. Enlargement of the prostate 4. Mild anemia 5. Spinal stenosis 6. Hypertension 7. Severe pain 8. Pneumonia 9. Acute on chronic renal failure 10. Hematuria 11. Change mental status Plan 1. There was 3family member in the room. I have long discussion with them. Bone scan showing disease all over the bone consistent with stage IV metastatic disease to the bone. There was nobody around the patient. Accepted hospice. There is plan for DNR DNI and hospice. I will sign off this case at this time Vitals/Labs Vital Signs Date Time Temp Pulse Resp B/P (MAP) Pulse Ox O2 Delivery O2 Flow Rate FiO2 09/26/24 23:23 105 18 09/26/24 20:21 N/Cannula Low lpm 3.0 32 09/26/24 20:00 98.1 106/68 96 Laboratory Tests 09/26/24 06:05 Medications Current Medications Ceftriaxone Sodium 1 gm ONCE ONCE IVPB; Start 09/16/24 at 16:00; Stop 09/16/24 at 16:43; Status DC Sodium Chloride 1,000 ml @ 500 mls/hr Q2H IV Last administered on 09/17/24at 00:09; Start 09/16/24 at 16:00; Stop 09/17/24 at 11:47; Status DC Azithromycin 250 ml @ 250 mls/hr Q24H IVPB; Start 09/16/24 at 16:00; Stop 09/16/24 at 16:43; Status DC Cefepime HCl 1 gm Q8H IVPB Last administered on 09/17/24at 11:43; Start 09/16/24 at 16:30; Stop 09/17/24 at 13:53; Status DC Doxycycline Hyclate 100 mg BID PO Last administered on 09/19/24at 09:09; Start 09/16/24 at 21:00; Stop 09/19/24 at 09:53; Status DC Acetaminophen 650 mg Q4H PRN PO; Start 09/16/24 at 16:30; Stop 10/16/24 at 16:29 Ondansetron HCl 4 mg Q6H PRN PO; Start 09/16/24 at 16:30; Stop 10/16/24 at 16:29 Morphine Sulfate 2 mg Q6H6 PRN IVP Last administered on 09/20/24at 20:40; Start 09/16/24 at 17:00; Stop 09/21/24 at 20:01; Status DC Tramadol HCl 50 mg Q6H PRN PO Last administered on 09/18/24at 02:49; Start 09/17/24 at 14:00; Stop 09/18/24 at 10:12; Status DC Cefepime HCl 1 gm Q12H IVPB Last administered on 09/19/24at 00:15; Start 09/18/24 at 00:00; Stop 09/19/24 at 09:53; Status DC Clonidine HCl 0.1 mg AD PRN PO; Start 09/17/24 at 15:00; Stop 09/17/24 at 14:48; Status DC Docusate Sodium 100 mg BID PO Last administered on 09/26/24at 20:23; Start 09/17/24 at 21:00; Stop 10/17/24 at 20:59 Gabapentin 100 mg TID PO Last administered on 09/26/24at 20:23; Start 09/17/24 at 21:00; Stop 10/17/24 at 20:59 Guaifenesin 200 mg QID PO Last administered on 09/26/24at 20:23; Start 09/17/24 at 17:00; Stop 10/17/24 at 16:59 Pantoprazole Sodium 40 mg DAILY PO Last administered on 09/24/24at 09:52; Start 09/18/24 at 09:00; Stop 10/18/24 at 08:59 Polyethylene Glycol 17 gm DAILY PO Last administered on 09/23/24at 09:15; Start 09/18/24 at 09:00; Stop 10/18/24 at 08:59 Propranolol HCl 10 mg DAILY PO Last administered on 09/24/24at 09:52; Start 09/18/24 at 09:00; Stop 10/18/24 at 08:59 Tamsulosin HCl 0.4 mg DAILYBKFST PO Last administered on 09/24/24at 09:52; Start 09/18/24 at 08:00; Stop 10/18/24 at 07:59 Miscellaneous Medication 1 drop Q4PRN OP; Start 09/17/24 at 15:00; Stop 09/17/24 at 14:49; Status DC Home Med (Dutasteride 0.5 MG) DAILY PO; Start 09/18/24 at 09:00; Stop 10/18/24 at 08:59 Home Med (L.acidoph & Paracasei,B.lactis (Probiotic... DAILY PO; Start 09/18/24 at 09:00; Stop 10/18/24 at 08:59 Lactulose 20 gm DAILY PO Last administered on 09/24/24at 09:52; Start 09/18/24 at 09:00; Stop 10/18/24 at 08:59 Home Med (Melatonin 1 CAP) HS PO; Start 09/17/24 at 21:00; Stop 10/17/24 at 20:59 Multivitamins Therapeutic 1 tab DAILY PO Last administered on 09/24/24at 09:52; Start 09/18/24 at 09:00; Stop 10/18/24 at 08:59 Miscellaneous Medication 5 mg DAILY PO; Start 09/18/24 at 09:00; Stop 09/17/24 at 14:55; Status DC Home Med (Zinc Sulfate (Zinc)... DAILY PO; Start 09/18/24 at 09:00; Stop 10/18/24 at 08:59 Home Med ([Vitamin D3] 2,000 UNITS) DAILY PO; Start 09/18/24 at 09:00; Stop 10/18/24 at 08:59 Magnesium Sulfate 50 ml @ 0 mls/hr PROTOCOL PRN IV Last administered on 09/19/24at 07:19; Start 09/17/24 at 17:30; Stop 10/17/24 at 17:29 Furosemide 20 mg DAILY PO Last administered on 09/24/24at 09:52; Start 09/18/24 at 09:00; Stop 09/26/24 at 10:19; Status DC Ketorolac Tromethamine 15 mg Q6H PRN IV Last administered on 09/23/24at 11:28; Start 09/18/24 at 13:30; Stop 09/23/24 at 13:29; Status DC Lorazepam 0.5 mg ONCE ONCE IVP; Start 09/18/24 at 17:30; Stop 09/18/24 at 17:31; Status DC Meropenem 1 gm Q12H IV Last administered on 09/26/24at 12:21; Start 09/19/24 at 11:30; Stop 09/29/24 at 11:29 Lorazepam 0.5 mg ONCE ONCE IVP Last administered on 09/20/24at 08:30; Start 09/20/24 at 08:30; Stop 09/20/24 at 08:31; Status DC Pharmacy Profile Note 1 each ONCE [facility]; Start 09/21/24 at 19:30; Stop 09/24/24 at 09:21; Status DC Pamidronate Disodium 90 mg/ Sodium Chloride 1,000 ml @ 250 mls/hr ONCE ONCE IV Last administered on 09/21/24at 20:25; Start 09/21/24 at 20:30; Stop 09/22/24 at 00:29; Status DC Morphine Sulfate 2 mg Q4H PRN IVP Last administered on 09/26/24at 13:39; Start 09/23/24 at 15:00; Stop 09/30/24 at 14:59 Tramadol HCl 50 mg Q6H PRN PO Last administered on 09/26/24at 20:24; Start 09/23/24 at 15:00; Stop 09/28/24 at 14:59 Albuterol 1 UDVIAL [id number] IH Last administered on 09/26/24at 23:22; Start 09/24/24 at 20:00; Stop 10/24/24 at 19:59 Furosemide 20 mg DAILY IV; Start 09/27/24 at 09:00; Stop 09/26/24 at 11:50; Status DC Furosemide 20 mg DAILY IV Last administered on 09/26/24at 12:43; Start 09/26/24 at 12:00; Stop 10/26/24 at 11:59 BIANKA CAMPBELL MD Sep 26, 2024 23:33
[2024-09-27] VITALS (9 sets, daily range): BP systolic 90–118; BP diastolic 63–75; PULSE 108–116; RESP 18–22; TEMP 97.7–101.3; O2SAT 95
--- NOTE | 2024-09-27 08:45 | NUR ---
[facility] [id number] spoke to Karishma at [facility]. DME was delivered last night and room is ready for pt. Luz Maria notified Hansel, nurse and Evelina CANNON of this.
[2024-09-27] MEDS ORDERED: furoSEMIDE 20MG VIAL IV SCH (09:00)
[2024-09-27] MEDS: ondanSETRON 4MG INJ IVP ONE (11:03)
[2024-09-27] MEDS: acetaMINOPHEN 650 MG SUPPOSITORY RC ONE (11:43)
[2024-09-27] MEDS ORDERED: VANCOMYCIN PROTOCOL PER PHARMACY IV SCH (12:30)
[2024-09-27] MEDS ORDERED: VANCOMYCIN 1.5 GM/250 ML BAG 250 ML IV ONE (13:00)
--- NOTE | 2024-09-27 13:18 | PN ---
[facility] PROGRESS NOTE Date Patient Seen: Sep 27, 2024 Time of Visit: 13:18 Supervising Physician: Dr. Jared Payne Primary Care Physician: [Dr. Macias] Outpatient Specialists: [ ] Inpatient Consults: [[facility]] Dr. Herman PROBLEM LIST: Suspected hospital acquired pneumonia, POA Acute complicated cystitis (+) ESBL E coli T-11 Blastic Lesion - positive for malignancy stage IV Acute renal failure POA-resolved Hypertension Obesity Hematuria, improved Left pleural effusion - status post left thoracentesis by IR -800 mL output History of RCC Plan Summary: Supplemental oxygen as needed Wean off as tolerated Continue antibiotics per Infectious Disease Continue diuretics Follow oncology recommendation Prognosis remains guarded Recommend hospice care INTERVAL HISTORY: Patient evaluated at bedside with family present. He continues on meropenem at this time for ESBL E coli cystitis. Patient has been accepted by [facility], family with questions regarding the continuation of his antibiotic treatment, advised we will reach out to primary team, nursing staff to reach out to [facility]. Patient complaining of nausea, no vomiting at this time, orders placed for Zofran to be administered. He has not been eating as reported by family outside of a few bites of ice cream that they have been spent feeding him. We agree with the decision for hospice at this time given the patient's advanced cancer and metastatic lesions. We will continue to follow while the patient was on the floor. REVIEW OF SYSTEMS: 12 point ROS reviewed with patient. Pertinent positives mentioned above. Otherwise negative. PHYSICAL EXAM: GENERAL: alert, weak, awake oriented x 2 HEENT: EOMI, Sclera non icteric, moist mucosa NECK: Supple, no JVD, trachea midline LUNGS: Clear breath sounds bilaterally. No wheezes HEART: Regular rate and rhythm. Normal S1 and S2, without murmurs ABD: Abdomen soft, nontender. Bowel sounds present EXT: No clubbing cyanosis or edema NEURO: Alert and oriented to person, follows commands Vital Signs (last 8hr) Date Time Temp Pulse Resp B/P (MAP) Pulse Ox O2 Delivery O2 Flow Rate FiO2 09/27/24 13:02 112 18 09/27/24 11:43 101.3 09/27/24 08:00 98.2 116 20 117/70 95 Nasal Cannula 3.0 09/27/24 07:20 115 18 09/27/24 07:19 115 18 N/Cannula Low lpm 3.0 32 LABS: Hematology Labs: Test 09/26/24 06:05 Range/Units White Blood Count 16.4 H 4.8-10.8 K/uL Red Blood Count 4.93 4.50-6.20 MIL/uL Hemoglobin 13.9 L 14.0-18.0 g/dL Hematocrit 43.8 42-54 % Mean Corpuscular Volume 88.8 79-99 fL Mean Corpuscular Hemoglobin 28.2 27.0-33.0 pg Mean Corpuscular Hemoglobin Concent 31.7 L 32.0-36.0 g/dL Red Cell Distribution Width 13.9 11.0-15.5 % Platelet Count 144 130-400 K/uL Mean Platelet Volume 11.5 H 7.5-10.5 fL Immature Granulocyte % (Auto) 2.5 H 0-1 % Neutrophils (%) (Auto) 83.5 H 40.0-77.0 % Lymphocytes (%) (Auto) 5.4 L 21.0-51.0 % Monocytes (%) (Auto) 8.1 3.0-13.0 % Eosinophils (%) (Auto) 0.1 0.0-8.0 % Basophils (%) (Auto) 0.4 0.0-5.0 % Neutrophils # (Auto) 13.7 H 1.8-7.7 K/uL Lymphocytes # (Auto) 0.9 L 1.0-4.8 K/uL Monocytes # (Auto) 1.3 H 0.1-1.0 K/uL Eosinophils # (Auto) 0.01 0.00-0.70 K/uL Basophils # (Auto) 0.06 0.00-0.20 K/uL Absolute Immature Granulocyte (auto 0.41 0-1 K/uL Nucleated Red Blood Cells 0.0 0.0-0.19 % Chemistry Labs: Test 09/26/24 06:05 Range/Units Sodium Level 141 136-145 mmol/L Potassium Level 4.1 3.5-5.1 mmol/L Chloride Level 106 101-111 mmol/L Carbon Dioxide Level 24 21-32 mmol/L Blood Urea Nitrogen 52 H 7-18 mg/dL Creatinine 1.4 H 0.5-1.3 mg/dL Glomerular Filtration Rate Calc 52 >90 mL/min Random Glucose 104 70-105 mg/dL Total Calcium 9.1 8.5-10.1 mg/dL Magnesium Level 2.40 1.80-2.40 mg/dL Total Bilirubin 0.7 0.2-1.0 mg/dL Aspartate Amino Transf (AST/SGOT) 57 H 10-37 U/L Alanine Aminotransferase (ALT/SGPT) 31 12-78 U/L Alkaline Phosphatase 577 H 50-136 U/L Total Protein 5.7 L 6.0-8.3 g/dL Albumin 1.8 L 3.5-5.0 g/dL DIAGNOSTICS / RADIOLOGY RESULTS: [ ] PLAN NEURO: Minimize central acting medications as possible. Maintain fall precautions, adequate lighting during the day PULMONARY: Supplemental 02 as needed. Maintain aspiration precautions at all times CARDIOVASCULAR: Follow hemodynamics. Vital signs per facility protocol GI & NUTRITION: Continue with nutritional support. Continue stool softeners and laxatives as needed. KIDNEYS & ELECTROLYTES: Strict monitoring of intake, output and overall fluid balance. Avoid nephrotoxic medications to the extent possible. Medications to be dosed according to renal function. Monitor electrolytes and replace as needed ENDOCRINE: Maintain blood glucose between 100-180 at all times. Hypoglycemia protocol in place INFECTIOUS DISEASE: Trend temperature, WBC and procalcitonin level Follow cultures, deescalate antibiotics as soon as possible. Panculture if new onset fever ONCOLOGY/HEMATOLOGY/COAGULATION: Monitor for s/s of bleeding Monitor hemoglobin, coagulation studies as needed SKIN: Pressure ulcer prevention per facility protocol Specialty mattress ORTHO/REHAB: Continue PT/OT Prophylaxis: Continue GI and DVT prophylaxis Code Status: Full Resuscitation Prognosis remains guarded Recommend hospice Disposition: As per attending. Total time spent greater than 30 minutes. PACO SKINNER Sep 27, 2024 13:18
--- NOTE | 2024-09-27 16:30 | NUR ---
DISCHARGED VIA EMS TO [facility] REPORT CALLED EARLIER TO [facility].
--- NOTE | 2024-09-27 17:02 | DS ---
Discharge Summary Hospital Course Oncologist and accounts receivable analyst is following patient while in the hospital. FINAL DISCHARGE DIAGNOSIS: Pneumonia. Urinary tract infection with E coli. Infection with multidrug resistant organism. Leukocytosis. Left pleural effusion, s/p left paracentesis by IR with 800 fluid removed on 09/19/2024. Metastatic prostate cancer. 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 Acute renal failure. History of bladder tumor with TURP. PLAN: Discharged to hospice home with [facility] hospice services. Refer to medication reconciliation. This case was reviewed and discussed with my supervising physician and the above assessment and plan was formulated and agreed upon. ATTESTATION BY PHYSICIAN I have seen and examined the patient. I reviewed the documentation, medical decision making, and treatment plan as noted by the mid-level provider above. I agree with the findings and plan of care. ANUP HARGROVE MD, MIRTA L [employer] Sep 27, 2024 17:02
[2024-09-28] MEDS ORDERED: VANCOMYCIN 1G/250ML KIT 250 ML IV SCH (13:00)
== END 2024-09-27 17:00 | disposition hospice, home (50) | DRG 689 ==
LOC: EDH 13:10 → EDHIP 16:27 → 3DH 21:43
PROVIDERS: ADMIT Internal Medicine Infectious Disease; ATTEND Internal Medicine Infectious Disease
PROC: 0W9G3ZZ Drainage of Peritoneal Cavity, Percutaneous Approach (ICD-10-PCS; principal; 2024-09-19)
DX: N30.01 Acute cystitis with hematuria (principal); J18.9 Pneumonia, unspecified organism; N17.9 Acute kidney failure, unspecified; C79.51 Secondary malignant neoplasm of bone; J91.8 Pleural effusion in other conditions classified elsewhere; Z16.24 Resistance to multiple antibiotics; E11.9 Type 2 diabetes mellitus without complications; Y95 Nosocomial condition; N40.0 Benign prostatic hyperplasia without lower urinary tract symptoms; D64.9 Anemia, unspecified; B96.20 Unspecified Escherichia coli [E. coli] as the cause of diseases classified elsewhere; E66.9 Obesity, unspecified; N18.9 Chronic kidney disease, unspecified; R09.02 Hypoxemia; N20.0 Calculus of kidney; I12.9 Hypertensive chronic kidney disease with stage 1 through stage 4 chronic kidney disease, or unspecified chronic kidney disease; C61 Malignant neoplasm of prostate; F03.90 Unspecified dementia, unspecified severity, without behavioral disturbance, psychotic disturbance, mood disturbance, and anxiety; Z74.01 Bed confinement status; Z85.528 Personal history of other malignant neoplasm of kidney; Z79.899 Other long term (current) drug therapy; Z68.24 Body mass index [BMI] 24.0-24.9, adult
CPT/HCPCS: 32555; 36415; 71045; 71250; 74176; 78306; 80048; 80053; 81001; 82945; 82948; 83605; 83615; 83735; 83880; 83986; 84145; 84153; 84157; 85025; 85027; 85610; 87071; 87086; 87116; 87186; 87205; 87206; 89051; 93306; 94640; 94664; 96374; 99285; A9503; C1729; G0378; J0692; J1885; J1940; J2060; J2185; J2270; J2405; J2430; J3475; J7030; Q0162; J3370